=== PATIENT | female | born 1960 | race Caucasian/White ===

== ENCOUNTER 2020-04-27 08:28 | Inpatient (IN) ==
[2020-04-27] MEDS ORDERED: SODIUM CHLORIDE 0.9% 500 ML IV SCH (08:45)
--- NOTE | 2020-04-27 09:00 | XRay Report ---
XR chest 1V portable CLINICAL HISTORY: Shortness of breath. COMPARISON STUDY: No previous studies for comparison. FINDINGS: Lung volumes are mildly diminished. There is no pneumothorax or pleural effusion. Mild righ t lower lung airspace opacity is present. Cardiac size is normal. Mediastinal contours are unremarkab le. S-shaped curvature of the thoracolumbar spine is partially imaged. IMPRESSION: Mild right lower lung opacity. Atelectasis is favored. An infectious process is consider ed less likely. Radiographic follow-up is recommended. ACT 112: Negative or not required by law. Electronically signed by: Tyler Rios M.D. 04/27/2020 8:59 AM
[2020-04-27 09:07] LABS: Basophils # (auto) 0.05 K/uL (0-0.2); Basophils % (auto) 0.7 %; Eosinophils # (auto) 0.16 K/uL (0-0.5); Eosinophils % (auto) 2.1 %; Hematocrit (blood only) 42.9 % (37-47); Hemoglobin 13.5 g/dL (12.0-16.0); Immature Granulocytes # (auto) 0.04 K/uL (0.00-0.02); Immature Granulocytes % (auto) 0.5 %; Lymphocytes # (auto) 1.44 K/uL (1.2-3.4); Lymphocytes % (auto) 18.9 %; Mean Corpuscular Hemoglobin 29.1 pg (25-34); Mean Corpuscular Hgb Conc 31.5 g/dL (32-36); Mean Corpuscular Volume 92.5 fL (80-100); Mean Platelet Volume 11.7 fL (7.4-10.4); Monocytes # (auto) 0.97 K/uL (0.11-0.59); Monocytes % (auto) 12.7 %; Neutrophils # (auto) 4.96 K/uL (1.4-6.5); Neutrophils % (auto) 65.1 %; Platelet Count 246 K/uL (130-400); RDW Coefficient of Variation 14.5 % (11.5-14.5); RDW Standard Deviation 48.7 fL (36.4-46.3); Red Blood Count 4.64 M/uL (4.2-5.4); White Blood Count 7.62 K/uL (4.8-10.8)
[2020-04-27] MEDS ORDERED: ACETAMINOPHEN 1,000 MG/100 ML VIAL IV STA (09:17)
[2020-04-27] MEDS ORDERED: ONDANSETRON INJ 2 MG/ML 2 ML VIAL IV STA (09:17)
[2020-04-27] MEDS ORDERED: HYDROmorphone INJ 0.5 MG/0.5 ML SYR IV PRN (09:17)
[2020-04-27 09:46] LABS: Alanine Aminotransferase 20 U/L (12-78); Albumin Globulin Ratio 0.8 (0.9-2); Albumin Level 3.7 gm/dl (3.4-5.0); Alkaline Phosphatase 140 U/L (45-117); BUN Creatinine Ratio 15.3 (10-20); Bilirubin,Total 0.3 mg/dl (0.2-1); Blood Urea Nitrogen 22 mg/dl (7-18); Carbon Dioxide 24 mmol/L (21-32); Chloride 113 mmol/L (98-107); Creatinine Clr Calc Pharmacy 48.5 ml/min; Est GFR (African American) 45.3; Est GFR (Non-African American) 39.1; Globulin 4.5 gm/dl (2.5-4.0); Glucose 93 mg/dl (70-99); Sodium 143 mmol/L (136-145); Total Protein 8.2 gm/dl (6.4-8.2); Troponin I < 0.015 ng/ml (0-0.045)
[2020-04-27 10:06] LABS: Appearance Urine Clear (Clear); Bilirubin Urine Negative (Negative); Blood Urine Trace (Negative); Color Urine Yellow; Epithelial Cell Urine Auto >30 /lpf (0-5); Glucose Urine UA Negative (Negative); Ketones Urine Negative (Negative); Leukocyte Esterase Urine 1+ (Negative); Nitrite Urine Negative (Negative); Protein Urine 1+ (Negative); RBC Urine Automated 0-4 /hpf (0-4); Specific Gravity Urine 1.026 (1.000-1.030); Urobilinogen Urine Negative (Negative); pH Urine 5.5 (4.5-7.5)
[2020-04-27 10:13] LABS: Potassium 3.8 mmol/L (3.5-5.1)
[2020-04-27 10:19] LABS: Aspartate Aminotransferase 29 U/L (15-37); Creatine Kinase 352 U/L (26-192)
[2020-04-27 10:22] LABS: Bacteria Urine Automated 1+ (Negative)
[2020-04-27] MEDS ORDERED: cefTRIAXone SODIUM 2,000 MG/70 ML BAG IV STA (10:33)
[2020-04-27] MEDS ORDERED: levoFLOXacin/D5W 750 MG/150 ML BAG IV STA (10:34)
[2020-04-27] MEDS ORDERED: PIPERACILL/TAZOBAC CONSULT ACTIVE PRN (10:34)
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
[2020-04-27 11:31] LABS: C Reactive Protein 0.72 mg/dl (0-0.29); Ferritin 34.9 ng/ml (8-388)
[2020-04-27] MEDS: PIPERACILLIN/TAZOBACTAM 4.5 GM/120 ML BAG IV ONE ×2 (11:33→11:39)
[2020-04-27] MEDS ORDERED: ONDANSETRON INJ 2 MG/ML 2 ML VIAL IV PRN (12:56)
[2020-04-27] MEDS: ACETAMINOPHEN 325 MG TAB PO PRN (13:36)
[2020-04-27] MEDS: traMADol HCL 50 MG TABLET PO PRN (14:12)
[2020-04-27] MEDS: ALBUT/IPRATROP 3MG/0.5MG NEB 3 ML VIAL NEB SCH ×2 (15:00→19:50)
[2020-04-27] MEDS: HYDROmorphone INJ 0.5 MG/0.5 ML SYR IV PRN ×3 (15:31→21:38)
[2020-04-27] MEDS: LIDOCAINE 5% 1 PATCH TD SCH (18:39)
[2020-04-27] MEDS: guaiFENesin 600 MG TABCR PO SCH ×2 (20:23→20:25)
[2020-04-27] MEDS: rOPINIRole HCL 1 MG TABLET PO SCH (20:23)
[2020-04-27] MEDS: MAGNESIUM OXIDE 400 MG TAB PO SCH (20:24)
[2020-04-27] MEDS: levETIRAcetam 500 MG TAB PO SCH (20:24)
--- NOTE | 2020-04-27 20:56 | Electrocardiogram Report ---
Test Reason : Blood Pressure : / mmHG Vent. Rate : 076 BPM Atrial Rate : 076 BPM P-R Int : 142 ms QRS Dur : 074 ms QT Int : 428 ms P-R-T Axes : 063 047 047 degrees QTc Int : 481 ms Normal sinus rhythm Nonspecific T wave abnormality Prolonged QT Abnormal ECG No previous ECGs available Confirmed by Maycol Talley ([id number]) on 04/27/2020 8:56:27 PM Referred By: REFERRED SELF Confirmed By:Maycol Talley
[2020-04-27] MEDS ORDERED: LEVETIRACETAM 500 MG PO SCH (21:00)
[2020-04-27] MEDS ORDERED: ALBUT/IPRATROP 3MG/0.5MG NEB 3 ML VIAL NEB PRN (22:26)
[2020-04-28] MEDS: HYDROmorphone INJ 0.5 MG/0.5 ML SYR IV PRN ×8 (01:07→21:13)
[2020-04-28] MEDS: LEVOTHYROXINE SODIUM 25 MCG TABLET PO SCH (05:26)
[2020-04-28] MEDS: CYANOCOBALAMIN 500 MCG TABLET (VITAMIN B-12) PO SCH (07:22)
[2020-04-28] MEDS: ACETAMINOPHEN 325 MG TAB PO PRN (07:23)
[2020-04-28] MEDS: LIDOCAINE 5% 1 PATCH TD SCH (07:24)
[2020-04-28] MEDS: ENOXAPARIN INJ 40 MG/0.4 ML SYR SQ SCH (07:24)
[2020-04-28] MEDS: levETIRAcetam 500 MG TAB PO SCH ×2 (07:24→20:18)
[2020-04-28] MEDS: DULoxetine HCL 60 MG CAP PO SCH (07:24)
[2020-04-28] MEDS: GABAPENTIN 300 MG CAP PO SCH (07:25)
[2020-04-28] MEDS: guaiFENesin 600 MG TABCR PO SCH ×2 (07:25→20:18)
[2020-04-28] MEDS: CHOLECALCIFEROL 1,000 UNITS 25 MCG TAB PO SCH (07:25)
[2020-04-28 07:26] LABS: Hematocrit (blood only) 39.1 % (37-47); Hemoglobin 12.3 g/dL (12.0-16.0); Mean Corpuscular Hemoglobin 29.3 pg (25-34); Mean Corpuscular Hgb Conc 31.5 g/dL (32-36); Mean Corpuscular Volume 93.1 fL (80-100); Mean Platelet Volume 11.3 fL (7.4-10.4); Platelet Count 202 K/uL (130-400); RDW Coefficient of Variation 14.3 % (11.5-14.5); RDW Standard Deviation 48.6 fL (36.4-46.3); White Blood Count 6.68 K/uL (4.8-10.8)
[2020-04-28 07:42] LABS: Albumin Level 3.1 gm/dl (3.4-5.0); BUN Creatinine Ratio 14.3 (10-20); Calcium 8.8 mg/dl (8.5-10.1); Creatinine Clr Calc Pharmacy 50.6 ml/min; Est GFR (African American) 47.7; Est GFR (Non-African American) 41.2; Potassium 3.6 mmol/L (3.5-5.1)
[2020-04-28 07:45] LABS: Albumin Globulin Ratio 0.8 (0.9-2); Bilirubin,Total 0.3 mg/dl (0.2-1); Globulin 3.9 gm/dl (2.5-4.0)
[2020-04-28] MEDS: traMADol HCL 50 MG TABLET PO PRN ×3 (08:20→23:34)
[2020-04-28] MEDS: levoFLOXacin/D5W 500 MG/100 ML BAG IV SCH (10:28)
--- NOTE | 2020-04-28 14:07 | Emergency Department Note ---
History of Present Illness General Chief complaint: Weakness Stated complaint: WEAKNESS Time Seen by Provider: 04/27/20 08:31 Source: patient, EMS, RN notes reviewed and old records reviewed Mode of arrival: EMS Limitations: physical limitation ([place]) History of Present Illness Provider complaint: fall, unable to get up Onset (ago): hour(s) 1 Location: back Severity: moderate Pain Consistency: + intermittent Maximum Pain Intensity: 10 Current Pain Intensity: 10 Quality: + aching Relieved By: + rest and + other (laying down ) Exacerbated By: + other (standing) Associated symptoms: + weakness and + other (urinary symptoms); no confusion, no chest pain, no fever/chills, no loss of appetite, no nausea/vomiting and no shortness of breath Treatments prior to arrival: none This 59-year-old female who was evaluated at [facility] 2 days ago and was diagnosed with a urinary tract infection. The patient reports she did not olive picker her antibiotics due to inability to walk and weakness. The patient reports she cannot ambulate in her own apartment and has been getting around on her hands and knees. She reports this morning that she fell in her bathroom and became wedged and was unable to stand up. EMS was summoned. They brought the patient to the emergency department. Upon arrival to the emergency department the patient is covered in bruises. Home Medications Medication Instructions Recorded Confirmed Type cholecalciferol (vitamin D3) 50 mcg PO QAM 04/27/20 04/27/20 History [Vitamin D3] cyanocobalamin (vitamin B-12) 1,000 mcg SUBLINGUAL QAM 04/27/20 04/27/20 History [Vitamin B-12] duloxetine 60 mg PO QAM 04/27/20 04/27/20 History gabapentin 900 mg PO QAM 04/27/20 04/27/20 History levetiracetam 2,000 mg PO QPM 04/27/20 04/27/20 History levothyroxine 25 mcg PO QAM 04/27/20 04/27/20 History magnesium oxide 800 mg PO HS 04/27/20 04/27/20 History ropinirole 2 mg PO HS 04/27/20 04/27/20 History Allergies Allergy/AdvReac Type Severity Reaction Status Date / Time No Known Allergies Allergy Unverified 04/27/20 10:58 Past Med/Surg History Family History Father Cancer Pancreatic cancer Social History Smoking Status: Never smoker Hx Alcohol Use: No Hx Substance Use: No Preferred Language: Chinese Communication Ability: Effective 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 GENERAL - 59-year-old female appearing stated age who is in moderate distress. Communicates well with provider and answers questions appropriately. SKIN - multiple bruises in various stages of healing on body HEAD - NC/AT. EYES - PERRL with EOMI bilaterally. Sclera anicteric. Palpebral conjunctiva pink and moist with no injection noted. EARS - No deformities of external structures noted on gross examination bilaterally. No pain elicited with palpation of the tragus bilaterally. External auditory canals without discharge or otorrhea. Tympanic membranes pearly yeh without retraction or bulging. No fluid or purulent material visualized behind the TM. Handle of malleus, umbo, cone of light, pars tensa/flaccid all easily visualized. NOSE - Midline and without cyanosis. No epistaxis or purulent drainage noted. Septum midline without deviation or septal hematoma noted. MOUTH/OROPHARYNX - Without perioral cyanosis. Buccal mucosa pink and moist and without leukoplakia. Tongue midline with equal elevation of palate bilaterally. No tonsillar hypertrophy, erythema, or exudates noted. dentition noted. NECK - Neck with FROM. Supple to palpation. lymphadenopathy noted. No nuchal rigidity. LUNGS - Chest wall symmetric without accessory muscle use, intercostals retractions, or central cyanosis. Normal vesicular breath sounds CTA B/L. No wheezes, rales, or rhonchi appreciated. CARDIAC - RRR with S1/S2. No murmur, rubs, or gallops appreciated. ABDOMEN - Abdominal contour without pulsations or visible masses. BS normoactive all four quadrants. No tenderness, palpable masses, hepatosplenomegaly, or ascites noted. EXTREMITIES - No clubbing or peripheral cyanosis. No pretibial edema present. +3/5 radial, posterior tibial, and dorsalis pedis pulses palpated throughout. +5/5 strength noted in UE/LE bilaterally. NEUROLOGIC - Cranial nerves II through XII grossly intact. Sensory intact to light touch throughout. Patellar reflexes +2/4. PSYCH - A&Ox3 and cooperates fully with examiner. Pt is very pleasant and interacts well with examiner. Course Administered Medications Acetaminophen (Acetaminophen 325 Mg Tab) 650 mg PO Q4H PRN PRN Reason: Moderate Pain Stop: 05/27/20 12:55 Last Admin: 04/28/20 07:23 Dose: 650 mg Documented by: [id number] Admin: 04/27/20 13:36 Dose: 650 mg Documented by: [id number] Cyanocobalamin (Cyanocobalamin 500 Mcg Tablet (Vitamin B-12)) [facility] Stop: 05/28/20 08:59 Last Admin: 04/28/20 07:22 Dose: 1,000 mcg Documented by: [id number] Duloxetine HCl (Duloxetine Hcl 60 Mg Cap) 60 mg PO QAM [facility] Stop: 05/28/20 08:59 Last Admin: 04/28/20 07:24 Dose: 60 mg Documented by: [id number] Enoxaparin Sodium (Enoxaparin Inj 40 Mg/0.4 Ml Syr) 40 mg SQ QAM [facility] Stop: 05/28/20 08:59 Last Admin: 04/28/20 07:24 Dose: 40 mg Documented by: [id number] Gabapentin (Gabapentin 300 Mg Cap) 900 mg PO QAM [facility] Stop: 05/28/20 08:59 Last Admin: 04/28/20 07:25 Dose: 900 mg Documented by: [id number] Guaifenesin (Guaifenesin 600 Mg Tabcr) 1,200 mg PO Q12 [facility] Stop: 05/27/20 20:59 Last Admin: 04/28/20 07:25 Dose: 1,200 mg Documented by: [id number] Admin: 04/27/20 20:25 Dose: Not Given Documented by: [id number] Hydromorphone HCl (Hydromorphone Inj 0.5 Mg/0.5 Ml Syr) 0.5 mg IV Q3H PRN PRN Reason: Pain Stop: 05/11/20 13:41 Last Admin: 04/28/20 13:21 Dose: 0.5 mg Documented by: [id number] Admin: 04/28/20 10:28 Dose: 0.5 mg Documented by: [id number] Admin: 04/28/20 07:22 Dose: 0.5 mg Documented by: [id number] Admin: 04/28/20 04:09 Dose: 0.5 mg Documented by: [id number] Admin: 04/28/20 01:07 Dose: 0.5 mg Documented by: [id number] Admin: 04/27/20 21:38 Dose: 0.5 mg Documented by: [id number] Admin: 04/27/20 18:27 Dose: 0.5 mg Documented by: [id number] Admin: 04/27/20 15:31 Dose: 0.5 mg Documented by: [id number] Levofloxacin/Dextrose (Levaquin/D5w) 500 mg in 100 mls @ 100 mls/hr IV Q24H JEREMIAH; Protocol Stop: 05/03/20 10:59 Last Infusion: 04/28/20 11:41 Dose: 0 mls/hr Documented by: [id number] Admin: 04/28/20 10:28 Dose: 100 mls/hr Documented by: [id number] Levetiracetam (Levetiracetam 500 Mg Tab) 1,000 mg PO BID JEREMIAH Stop: 05/27/20 20:59 Last Admin: 04/28/20 07:24 Dose: 1,000 mg Documented by: [id number] Admin: 04/27/20 20:24 Dose: 1,000 mg Documented by: [id number] Levothyroxine Sodium (Levothyroxine Sodium 25 Mcg Tablet) 25 mcg PO DAILYBB JEREMIAH Stop: 05/28/20 06:29 Last Admin: 04/28/20 05:26 Dose: 25 mcg Documented by: [id number] Lidocaine (Lidocaine 5% 1 Patch) 1 patch TD QAM [facility] Stop: 05/27/20 16:29 Last Admin: 04/28/20 07:24 Dose: 1 patch Documented by: [id number] Admin: 04/27/20 18:39 Dose: 1 patch Documented by: [id number] Magnesium Oxide (Magnesium Oxide 400 Mg Tab) 800 mg PO HS [facility] Stop: 05/27/20 20:59 Last Admin: 04/27/20 20:24 Dose: 800 mg Documented by: [id number] Miscellaneous (Remove Lidoderm Patch) 1 ea N/A DAILY@2100 JEREMIAH Stop: 05/27/20 20:59 Last Admin: 04/27/20 20:11 Dose: Not Given Documented by: [id number] Ropinirole HCl (Ropinirole Hcl 1 Mg Tablet) 2 mg PO HS JEREMIAH Stop: 05/27/20 20:59 Last Admin: 04/27/20 20:23 Dose: 2 mg Documented by: [id number] Tramadol HCl (Tramadol Hcl 50 Mg Tablet) 50 mg PO Q4H PRN PRN Reason: Pain Stop: 05/27/20 13:41 Last Admin: 04/28/20 08:20 Dose: 50 mg Documented by: [id number] Admin: 04/27/20 14:12 Dose: 50 mg Documented by: [id number] Vitamin D (Cholecalciferol 1,000 Units 25 Mcg Tab) 2,000 units PO QAM JEREMIAH Stop: 05/28/20 08:59 Last Admin: 04/28/20 07:25 Dose: 2,000 units Documented by: [id number] Discontinued Medications Albuterol (Albut/Ipratrop 3mg/0.5mg Neb 3 Ml Vial) 3 ml NEB Q4R JEREMIAH Stop: 05/27/20 14:59 Last Admin: 04/27/20 19:50 Dose: 3 ml Documented by: [id number] Admin: 04/27/20 15:00 Dose: Not Given Documented by: [id number] Hydromorphone HCl (Hydromorphone Inj 0.5 Mg/0.5 Ml Syr) 0.5 mg IV Q15M PRN PRN Reason: Pain Stop: 05/11/20 09:16 Last Admin: 04/27/20 10:10 Dose: 0.5 mg Documented by: [id number] Sodium Chloride (Nss) 500 mls @ 999 mls/hr IV .Q31M JEREMIAH Stop: 04/27/20 09:15 Last Infusion: 04/27/20 09:20 Dose: 0 mls/hr Documented by: [id number] Admin: 04/27/20 08:49 Dose: 999 mls/hr Documented by: [id number] Acetaminophen (Ofirmev) 1,000 mg in 100 mls @ 400 mls/hr IV NOW STA Stop: 04/27/20 09:31 Last Infusion: 04/27/20 10:10 Dose: 0 mls/hr Documented by: [id number] Admin: 04/27/20 09:30 Dose: 400 mls/hr Documented by: [id number] Ceftriaxone Sodium (Rocephin) 2,000 mg in 70 mls @ 140 mls/hr IV NOW STA Stop: 04/27/20 11:02 Last Admin: 04/27/20 11:40 Dose: Not Given Documented by: [id number] Levofloxacin/Dextrose (Levaquin/D5w) 750 mg in 150 mls @ 100 mls/hr IV NOW STA Stop: 04/27/20 12:03 Last Infusion: 04/27/20 13:16 Dose: 0 mls/hr Documented by: [id number] Admin: 04/27/20 11:38 Dose: 100 mls/hr Documented by: [id number] Piperacillin Sod/Tazobactam Sod (Zosyn) 4.5 gm in 120 mls @ 240 mls/hr IV NOW ONE Stop: 04/27/20 11:03 Last Admin: 04/27/20 11:39 Dose: Not Given Documented by: [id number] Ondansetron HCl (Ondansetron Inj 2 Mg/Ml 2 Ml Vial) 4 mg IV NOW STA Stop: 04/27/20 09:18 Last Admin: 04/27/20 11:40 Dose: Not Given Documented by: [id number] Medical Decision Making Differential Diagnosis Infection, dehydration, metabolic abnormality, hypo/hyperglycemia, electrolyte d isturbance, anemia, hypoxia, cardiac sources, intracerebral event, toxicologic, neurologic, as well as other pathologies. Medical Records Attestation: I reviewed the patient's medical records. Home Medications Current Medication List: was personally reviewed by me Laboratory Data Attestation: I reviewed the patient's lab results. Result diagrams: 04/28/20 07:16 04/28/20 07:16 Lab Results 04/27/20 04/27/20 04/27/20 Range/Units 08:45 08:45 08:45 WBC 7.62 (4.8-10.8) K/uL RBC 4.64 (4.2-5.4) M/uL Hgb 13.5 (12.0-16.0) g/dL Hct 42.9 (37-47) % MCV 92.5 (80-100) fL MCH 29.1 (25-34) pg MCHC 31.5 L (32-36) g/dL RDW Std Deviation 48.7 H (36.4-46.3) fL RDW Coeff of Darin 14.5 (11.5-14.5) % Plt Count 246 (130-400) K/uL MPV 11.7 H (7.4-10.4) fL Immature Gran % (Auto) 0.5 % Neut % (Auto) 65.1 % Lymph % (Auto) 18.9 % Hardin % (Auto) 12.7 % Eos % (Auto) 2.1 % Baso % (Auto) 0.7 % Neut # (Auto) 4.96 (1.4-6.5) K/uL Lymph # (Auto) 1.44 (1.2-3.4) K/uL Hardin # (Auto) 0.97 H (0.11-0.59) K/uL Eos # (Auto) 0.16 (0-0.5) K/uL Baso # (Auto) 0.05 (0-0.2) K/uL Immature Gran # (Auto) 0.04 H (0.00-0.02) K/uL ESR (0-21) mm/hr Sodium 143 (136-145) mmol/L Potassium 3.8 (3.5-5.1) mmol/L Chloride 113 H (98-107) mmol/L Carbon Dioxide 24 (21-32) mmol/L Anion Gap 6.0 (3-11) BUN 22 H (7-18) mg/dl Creatinine 1.44 H (0.6-1.2) mg/dl Est Cr Clr Drug Dosing 48.5 ml/min Est GFR ( Amer) 45.3 Est GFR (Non-Af Amer) 39.1 BUN/Creatinine Ratio 15.3 (10-20) Glucose 93 (70-99) mg/dl Calcium 9.0 (8.5-10.1) mg/dl Ferritin 34.9 (8-388) ng/ml Total Bilirubin 0.3 (0.2-1) mg/dl AST 29 (15-37) U/L ALT 20 (12-78) U/L Alkaline Phosphatase 140 H (45-117) U/L Total Creatine Kinase 352 H (26-192) U/L Troponin I < 0.015 (0-0.045) ng/ml C-Reactive Protein 0.72 H (0-0.29) mg/dl Total Protein 8.2 (6.4-8.2) gm/dl Albumin 3.7 (3.4-5.0) gm/dl Globulin 4.5 H (2.5-4.0) gm/dl Albumin/Globulin Ratio 0.8 L (0.9-2) TSH 2.210 (0.300-4.500) uIu/ml 04/27/20 Range/Units 10:34 WBC (4.8-10.8) K/uL RBC (4.2-5.4) M/uL Hgb (12.0-16.0) g/dL Hct (37-47) % MCV (80-100) fL MCH (25-34) pg MCHC (32-36) g/dL RDW Std Deviation (36.4-46.3) fL RDW Coeff of Darin (11.5-14.5) % Plt Count (130-400) K/uL MPV (7.4-10.4) fL Immature Gran % (Auto) % Neut % (Auto) % Lymph % (Auto) % Hardin % (Auto) % Eos % (Auto) % Baso % (Auto) % Neut # (Auto) (1.4-6.5) K/uL Lymph # (Auto) (1.2-3.4) K/uL Hardin # (Auto) (0.11-0.59) K/uL Eos # (Auto) (0-0.5) K/uL Baso # (Auto) (0-0.2) K/uL Immature Gran # (Auto) (0.00-0.02) K/uL ESR 42 H (0-21) mm/hr Sodium (136-145) mmol/L Potassium (3.5-5.1) mmol/L Chloride (98-107) mmol/L Carbon Dioxide (21-32) mmol/L Anion Gap (3-11) BUN (7-18) mg/dl Creatinine (0.6-1.2) mg/dl Est Cr Clr Drug Dosing ml/min Est GFR ( Amer) Est GFR (Non-Af Amer) BUN/Creatinine Ratio (10-20) Glucose (70-99) mg/dl Calcium (8.5-10.1) mg/dl Ferritin (8-388) ng/ml Total Bilirubin (0.2-1) mg/dl AST (15-37) U/L ALT (12-78) U/L Alkaline Phosphatase (45-117) U/L Total Creatine Kinase (26-192) U/L Troponin I (0-0.045) ng/ml C-Reactive Protein (0-0.29) mg/dl Total Protein (6.4-8.2) gm/dl Albumin (3.4-5.0) gm/dl Globulin (2.5-4.0) gm/dl Albumin/Globulin Ratio (0.9-2) TSH (0.300-4.500) uIu/ml Imaging Data Radiologist's Impression: [facility], [id number] XRay Report Patient: SEPTEMBERKEVENAdmit Date: 04/27/20MR#: [id number]: [address] [place] [address] [address] BAcct ID:[id number]: Date: 1960[facility] Zip: [place], [place] [address]Uae: 59Location: EDSex: FRoom/Bed:Att Phy:Diagnosis: WEAKNESSPri Phy: PCP,NOService Date: 04/27/20Fa Phy:Interpreting Phy: Tyler Rios MDAdmit Phy: Ordering Phy: Stoney Malik MD cc: ~ XR chest 1V portable CLINICAL HISTORY: Shortness of breath. COMPARISON STUDY: No previous studies for comparison. FINDINGS: Lung volumes are mildly diminished. There is no pneumothorax or pleural effusion. Mild right lower lung airspace opacity is present. Cardiac size is normal. Mediastinal contours are unremarkable. S-shaped curvature of the thoracolumbar spine is partially imaged. IMPRESSION: Mild right lower lung opacity. Atelectasis is favored. An infectious process is considered less likely. Radiographic follow-up is recommended. ACT 112: Negative or not required by law. Electronically signed by: Tyler Rios M.D. 04/27/2020 8:59 AM Dictated: 04/27/2057Transcribed: 04/27/20856 ECG Data Attestation: I personally reviewed and interpreted this ECG as follows: Indication: + weakness Rate (beats per minute): 72 Rhythm: + normal sinus ECG Intervals/blocks: + Prolonged QT and + Normal QT-c (481) ECG [place]: + Normal ECG ST segments: no ST depression and no ST elevation Comparison ECG Date: no prior available MDM Narrative Patient was seen and evaluated as above in room C6. Review was performed of nursing notes and vital signs. I did review pertinent previous visits and patient history. After obtaining a thorough history and physical examination the above work up was performed. This 59-year-old female who reports to the emergency department after crawling around on her hands and knees at home. The patient has been unable to ambulate for "quite some time. She was started on antibiotics here in the emergency department for what appears to be pneumonia as well as a urinary tract infection. I did discuss the case with the hospitalist service who did agree to admit the patient. Patient is in agreement the treatment plan An order was placed for continuous cardiac monitoring. The monitor shows a rate of 72 with Normal Sinus rhythm. The patient was evaluated during the global COVID-19 pandemic, and that diagnosis was suspected/considered upon their initial presentation. Their evaluation, treatment and testing was consistent with current guidelines for patients who present with complaints or symptoms that may be related to COVID- 19. Impression & Plan Weakness, HTN (hypertension), UTI (urinary tract infection), Pneumonia Discharge Plan Visit Data Chief Complaint: Weakness Stated Complaint: WEAKNESS ED Provider: Stoney Malik Discharge Problem: Weakness, HTN (hypertension), UTI (urinary tract infection), Pneumonia Patient Disposition: Admitted As Inpatient Discharge Instructions Interventions: ED Discharge Assessment Last Done: 04/27/20 12:14 Discharge Problem: HTN (hypertension) Qualifiers: Hypertension type: unspecified Qualified Code(s): I10 - Essential (primary) hypertension UTI (urinary tract infection) Qualifiers: Urinary tract infection type: site unspecified Hematuria presence: without hematuria Qualified Code(s): N39.0 - Urinary tract infection, site not specified Pneumonia Qualifiers: Pneumonia type: due to unspecified organism Laterality: unspecified laterality Lung location: unspecified part of lung Qualified Code(s): J18.9 - Pneumonia, unspecified organism
--- NOTE | 2020-04-28 19:37 | Hospitalist Progress Note ---
Date of Service April 28, 2020 Assessment & Plan (1) Weakness: - PT/OT consults for profound progressive weakness over the past 2 days, s/p fall/slip from off the toilet. -Procal wnl, ferritin wnl, LDH wnl - UA appears infected, UTI per records from [place] with kleb pneumonia although not having particular symptoms - CXR reviewed showing atelectasis vs possible pneumonia and again, not having particular symptoms of pna (2) UTI (urinary tract infection): ->100,000 Klebsiella pneumonia 8 colonies growing, resistant to ampicillin, nitrofurantoin, tetracycline - fax being sent from [facility] for chart, confirmed over the phone. - will continue IV Levaquin x 3 days - UC no growth, bc ngtd -Patient denies hematuria, dysuria, increase in frequency, no cva tenderness on exam so unlikely to be pyelonephritis -Follow cmp to monitor cr/bun (3) Pneumonia: -Possible as per CXR -Afebrile, no WBC, checking a procal, unlikely, but will continue Levaquin as above to cover UTI and possible pulmonary source -Encourage incentive spirometry, flutter, duo nebs as needed -Tylenol prn - pain in R shoulder blade improved with dilaudid 0.5 mg x 1 in the ER, hold on further narcotics for now. (4) HTN (hypertension): - No hx of such, BP significantly elevated here but without sypmptoms. Pt reports pain in back as primary issues as well as the R shoulder blade region - this may be related to possible pneumonia. Will give a dose of amlodipine for this evening and see how she tolerates. Will hold off on hctz or lisinopril for mildly decreased kidney function (5) Hypothyroidism: -Continue levothyroxine 25 mcg daily (6) Seizure disorder: -Last seizure like activity was approximately 3 years ago per patient, spent 1 week in continuous EEG unit at that time without findings other than one abnormal EEG. Follows with Dr. Borja in neurology as outpatient routinely -Continue Keppra 2000 mg qpm - check level for toxicity (7) Obesity (BMI 30-39.9): - BMI of 39.7, diet encouraged with poor ability to exercise - Consider nutrition consult (8) Restless leg: - May continue requip 2 mg po HS (9) Peripheral neuropathy: - Cont gabapentin mg qam, cymbalta 60 mg qam - bilateral up to level of mid-crystal on exam (10) Vitamin D deficiency: - Cont supplementation DVT ppx: - zarina gutierrezx subq CODE: Full code- discussed with pt at bedside Dispo: Admit for Observation, from home, likely to remain in the hospital x 1-2 days, CM to assist with rehab planning Admission and Anticipated Discharge Date Admission Date: April 27, 2020 Subjective Ms. Sanches reports pain under her left shoulder blade and generalized weakness. Review of Systems Constitutional: no fever, no chills and no body aches Respiratory: no cough and no dyspnea Cardiovascular: no chest pain, no dyspnea on exertion and no palpitations Gastrointestinal: no abdominal pain, no nausea, no vomiting and no diarrhea/loose stools Genitourinary: no dysuria and no urinary hesitancy Musculoskeletal: as per Subjective / HPI Integumentary: ecchymosis legs Neurologic: no numbness and no radiating pain Physical Exam Physical Exam: General: no distress Eyes: normal inspection, PERLL Respiratory: chest non tender, clear to auscultation, normal breath sounds, no respiratory distress, no accessory muscle use Cardiac: regular rate and rhythm, no rub or gallop, no murmur, no edema, no jvd GI/: active bowel sounds, no abd pain or tenderness, soft, non distended Extremities: normal range of motion, normal strength, non tender Neuro/Psych: alert and oriented x 3, normal mood and affect Skin: normal color, dry, multiple areas of ecchymosis lower extremities Results & Data Results & Data ([facility]) Vital Signs (Past 12 Hours) Vital Signs Temp Pulse Resp BP BP Pulse Ox 04/28/20 15:21 36.7 C 82 17 198/96 H 98 04/28/20 07:40 36.6 C 72 18 165/90 H 98 PG Care Time/CCT Total # of Minutes Spent Total Time Spent with Patient: Total time spent is greater than 50% in coordination of care (as documented) at patient's floor/unit and/or counseling patient: Coding Level of Care Code 54607 Subseq Hosp Care Lvl 2 Diagnoses Weakness R53.1 UTI (urinary tract infection) N39.0 Hematuria presence: without hematuria Urinary tract infection type: site unspecified Pneumonia J18.9 Laterality: unspecified laterality Lung location: unspecified part of lung Pneumonia type: due to unspecified organism HTN (hypertension) I10 Hypertension type: unspecified Hypothyroidism E03.9 Seizure disorder G40.909 Obesity (BMI 30-39.9) E66.9 Restless leg G25.81 Peripheral neuropathy G62.9 Vitamin D deficiency E55.9 (1) UTI (urinary tract infection) Hematuria presence: without hematuria Urinary tract infection type: site unspecified Qualified Code(s): N39.0 - Urinary tract infection, site not specified (2) Pneumonia Laterality: unspecified laterality Lung location: unspecified part of lung Pneumonia type: due to unspecified organism Qualified Code(s): J18.9 - Pneumonia, unspecified organism (3) HTN (hypertension) Hypertension type: unspecified Qualified Code(s): I10 - Essential (primary) hypertension
[2020-04-28] MEDS ORDERED: amLODIPine BESYLATE 5 MG TAB PO ONE (19:45)
[2020-04-28] MEDS: rOPINIRole HCL 1 MG TABLET PO SCH (20:17)
[2020-04-28] MEDS: MAGNESIUM OXIDE 400 MG TAB PO SCH (20:18)
[2020-04-29] MEDS: HYDROmorphone INJ 0.5 MG/0.5 ML SYR IV PRN ×6 (00:32→21:32)
[2020-04-29] MEDS: ACETAMINOPHEN 325 MG TAB PO PRN (02:11)
[2020-04-29] MEDS: traMADol HCL 50 MG TABLET PO PRN ×4 (03:08→23:24)
[2020-04-29] MEDS: LEVOTHYROXINE SODIUM 25 MCG TABLET PO SCH (05:50)
[2020-04-29 06:21] LABS: Hematocrit (blood only) 42.4 % (37-47); Hemoglobin 13.4 g/dL (12.0-16.0); Mean Corpuscular Hemoglobin 29.1 pg (25-34); Mean Corpuscular Hgb Conc 31.6 g/dL (32-36); Mean Corpuscular Volume 92.2 fL (80-100); Mean Platelet Volume 11.3 fL (7.4-10.4); Platelet Count 233 K/uL (130-400); RDW Coefficient of Variation 14.1 % (11.5-14.5); RDW Standard Deviation 47.2 fL (36.4-46.3); White Blood Count 6.67 K/uL (4.8-10.8)
[2020-04-29 06:55] LABS: Albumin Globulin Ratio 0.8 (0.9-2); Albumin Level 3.1 gm/dl (3.4-5.0); BUN Creatinine Ratio 19.4 (10-20); Bilirubin,Total 0.3 mg/dl (0.2-1); Calcium 8.8 mg/dl (8.5-10.1); Creatinine Clr Calc Pharmacy 71.2 ml/min; Est GFR (African American) 72.2; Est GFR (Non-African American) 62.3; Potassium 3.6 mmol/L (3.5-5.1); Total Protein 7.1 gm/dl (6.4-8.2)
[2020-04-29] MEDS: LIDOCAINE 5% 1 PATCH TD SCH (07:31)
[2020-04-29] MEDS: guaiFENesin 600 MG TABCR PO SCH ×2 (07:36→20:29)
[2020-04-29] MEDS: CYANOCOBALAMIN 500 MCG TABLET (VITAMIN B-12) PO SCH (07:36)
[2020-04-29] MEDS: DULoxetine HCL 60 MG CAP PO SCH (07:37)
[2020-04-29] MEDS: GABAPENTIN 300 MG CAP PO SCH (07:37)
[2020-04-29] MEDS: levETIRAcetam 500 MG TAB PO SCH ×2 (07:37→20:26)
[2020-04-29] MEDS: CHOLECALCIFEROL 1,000 UNITS 25 MCG TAB PO SCH (07:37)
[2020-04-29] MEDS: ENOXAPARIN INJ 40 MG/0.4 ML SYR SQ SCH (07:38)
[2020-04-29] MEDS: levoFLOXacin/D5W 500 MG/100 ML BAG IV SCH (11:04)
--- NOTE | 2020-04-29 14:41 | XRay Report ---
RIGHT-SIDED RIB SERIES CLINICAL HISTORY: Right-sided back and chest wall pain. FINDINGS: 4 radiographs from a right-sided rib series are correlated with chest x-ray dated 0. The skeletal structures are osteopenic. There is no radiographic evidence of acute/displaced right -sided rib fracture on the rib series. The right lung parenchyma is clear as imaged noting right basi lar atelectasis. Cholecystectomy clips are seen in the right upper quadrant. IMPRESSION: There is no radiographic evidence of acute/displaced right-sided rib fracture. Electronically signed by: Juan Blue M.D. 04/29/2020 2:40 PM
--- NOTE | 2020-04-29 14:59 | XRay Report ---
LUMBAR SPINE 3 VIEWS CLINICAL HISTORY: Low back pain. FINDINGS: 3 views of the lumbar spine are obtained. No prior studies are unable for comparison at the time of dictation. The skeletal structures are osteopenic. There is no radiographic evidence of frac ture or malalignment. Vertebral body height and alignment are maintained throughout the lumbar spine. There is straightening of the lumbar lordosis. Anterior and lateral marginal osteophytes are seen th roughout. The transverse and spinous processes appear intact. Mild disc space narrowing is seen at L4 -L5 and L5-S1. There is mild facet arthropathy in the lower lumbar region. The visualized bony pelvis appears intact. Cholecystectomy clips are noted in the right upper quadrant. A surgical clip is also seen in the right pelvis. There is no bowel obstruction. Moderate constipation is observed. An indet erminate linear focus of gas is seen in the upper abdomen and may be external to the patient. IMPRESSION: 1. No acute bony abnormality is seen involving the lumbar spine. 2. Osteopenia and mild spondylotic change as above. 3. Moderate constipation. 4. An indeterminate linear focus of gas projects over the upper abdomen. This may be external to the patient and clinical correlation will be required. Dictated: 04/29/2020 2:48 PM Transcribed: 04/29/2020 2:57 PM Nneka [id number] [email or web address] Electronically signed by: Juan Blue M.D. 04/29/2020 2:58 PM
--- NOTE | 2020-04-29 17:18 | Hospitalist Progress Note ---
Date of Service April 29, 2020 Assessment & Plan (1) Weakness: - PT/OT consults for profound progressive weakness over the past 2 days, s/p fall/slip from off the toilet. -Procal wnl, ferritin wnl, LDH wnl - UA appears infected, UTI per records from [place] with kleb pneumonia although not having particular symptoms - CXR reviewed showing atelectasis vs possible pneumonia and again, not having particular symptoms of pna (2) UTI (urinary tract infection): ->100,000 Klebsiella pneumonia 8 colonies growing, resistant to ampicillin, nitrofurantoin, tetracycline - fax being sent from [facility] for chart, confirmed over the phone. - will continue IV Levaquin x 3 days - UC no growth, bc ngtd -Patient denies hematuria, dysuria, increase in frequency, no cva tenderness on exam so unlikely to be pyelonephritis -Follow cmp to monitor cr/bun (3) Back pain: Somewhat chronic in nature but worsening today XRay lumbar spine and left ribs - no rib fracture or acute bony abnormality, osteopenia, linear focus of gas which may be external to the patient. Focus of gas likely secondary to enoxaparin injection (4) Pneumonia: -Possible as per CXR -Afebrile, no WBC, procal wnl but will continue Levaquin as above to cover UTI and possible pulmonary source -Encourage incentive spirometry, flutter, duo nebs as needed -Tylenol prn - pain in R shoulder blade persistent (5) HTN (hypertension): - No hx of such, BP significantly elevated here but without sypmptoms. Pt reports pain in back as primary issues as well as the R shoulder blade region - this may be related to possible pneumonia. Given amlodipine yesterday as kidney function was mildly decreased. Will start patient on lisinopril for tomorrow 10 mg and she can titrate up as needed. (6) Hypothyroidism: -Continue levothyroxine 25 mcg daily (7) Seizure disorder: -Last seizure like activity was approximately 3 years ago per patient, spent 1 week in continuous EEG unit at that time without findings other than one abnormal EEG. Follows with Dr. Borja in neurology as outpatient routinely -Continue Keppra 2000 mg qpm - check level for toxicity (8) Obesity (BMI 30-39.9): - BMI of 39.7, diet encouraged with poor ability to exercise - Consider nutrition consult (9) Restless leg: - May continue requip 2 mg po HS (10) Peripheral neuropathy: - Cont gabapentin mg qam, cymbalta 60 mg qam - bilateral up to level of mid-crystal on exam (11) Vitamin D deficiency: - Cont supplementation DVT ppx: - joceline gutierrez subq Admission and Anticipated Discharge Date Admission Date: April 27, 2020 Subjective Ms. Sanches continues to complain of weakness in her arms and legs. She moves all of her extremities in bed and though she reports being unable to lift her arms she does so as we talk and nursing has also reported she is reaching above her head to pull herself up in bed. Seh is very uncomfortable with lower back pain which is chronic but today worse than usual. Review of Systems Review of Systems: Constitutional: No fever, sweats or chills, + worsening generalized weakness Respiratory: no cough or dyspnea Cardiovascular: No chest pain, dizziness or palpitations Abdomen: No pain, nausea, vomiting, diarrhea or constipation : No dysuria, increase in frequency Musculoskeletal: + weakness, No joint pain, + back pain Neurologic: + weakness, +numbness/tingling left lower extremity below the knee Skin: No rash or itch, + multiple areas of bruising over legs and knees Physical Exam Physical Exam: General: no distress Eyes: normal inspection, PERLL Respiratory: chest non tender, clear to auscultation, normal breath sounds, no respiratory distress, no accessory muscle use Cardiac: regular rate and rhythm, no rub or gallop, no murmur, no edema, no jvd GI/: active bowel sounds, no abd pain or tenderness, soft, non distended Extremities: normal range of motion, normal strength, non tender Neuro/Psych: alert and oriented x 3, normal mood and affect Skin: normal color, dry, multiple areas of ecchymosis lower extremities Results & Data Results & Data ([facility]) Vital Signs (Past 12 Hours) Vital Signs Temp Pulse Resp BP Pulse Ox 04/29/20 16:07 36.8 C 88 17 169/94 H 92 04/29/20 07:24 36.9 C 70 18 145/83 H 90 PG Care Time/CCT Total # of Minutes Spent Total Time Spent with Patient: Total time spent is greater than 50% in coor dination of care (as documented) at patient's floor/unit and/or counseling patient: Coding Level of Care Code 70444 Subseq Hosp Care Lvl 2 Diagnoses Weakness R53.1 UTI (urinary tract infection) N39.0 Hematuria presence: without hematuria Urinary tract infection type: site unspecified Back pain M54.9 Pneumonia J18.9 Laterality: unspecified laterality Lung location: unspecified part of lung Pneumonia type: due to unspecified organism HTN (hypertension) I10 Hypertension type: unspecified Hypothyroidism E03.9 Seizure disorder G40.909 Obesity (BMI 30-39.9) E66.9 Restless leg G25.81 Peripheral neuropathy G62.9 Vitamin D deficiency E55.9 (1) UTI (urinary tract infection) Hematuria presence: without hematuria Urinary tract infection type: site unspecified Qualified Code(s): N39.0 - Urinary tract infection, site not specified (2) HTN (hypertension) Hypertension type: unspecified Qualified Code(s): I10 - Essential (primary) hypertension (3) Pneumonia Laterality: unspecified laterality Lung location: unspecified part of lung Pneumonia type: due to unspecified organism Qualified Code(s): J18.9 - Pneumonia, unspecified organism
[2020-04-29] MEDS: MAGNESIUM OXIDE 400 MG TAB PO SCH (20:27)
[2020-04-29] MEDS: rOPINIRole HCL 1 MG TABLET PO SCH (20:27)
[2020-04-30] MEDS: HYDROmorphone INJ 0.5 MG/0.5 ML SYR IV PRN ×6 (00:41→18:49)
[2020-04-30] MEDS: traMADol HCL 50 MG TABLET PO PRN ×3 (03:33→17:39)
[2020-04-30] MEDS: LEVOTHYROXINE SODIUM 25 MCG TABLET PO SCH (05:34)
[2020-04-30] MEDS: CYANOCOBALAMIN 500 MCG TABLET (VITAMIN B-12) PO SCH (08:36)
[2020-04-30] MEDS: levETIRAcetam 500 MG TAB PO SCH (08:36)
[2020-04-30] MEDS: CHOLECALCIFEROL 1,000 UNITS 25 MCG TAB PO SCH (08:37)
[2020-04-30] MEDS: guaiFENesin 600 MG TABCR PO SCH ×2 (08:37→20:32)
[2020-04-30] MEDS: DULoxetine HCL 60 MG CAP PO SCH (08:37)
[2020-04-30] MEDS: ENOXAPARIN INJ 40 MG/0.4 ML SYR SQ SCH (08:38)
[2020-04-30] MEDS: GABAPENTIN 300 MG CAP PO SCH (08:38)
[2020-04-30] MEDS: LIDOCAINE 5% 1 PATCH TD SCH (08:39)
[2020-04-30] MEDS ORDERED: amLODIPine BESYLATE 5 MG TAB PO SCH (09:00)
[2020-04-30] MEDS ORDERED: lisinopril 10 MG TAB PO SCH (09:00)
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
[2020-04-30 10:17] LABS: Hematocrit (blood only) 41.4 % (37-47); Hemoglobin 13.4 g/dL (12.0-16.0); Mean Corpuscular Hemoglobin 29.1 pg (25-34); Mean Corpuscular Hgb Conc 32.4 g/dL (32-36); Mean Platelet Volume 11.3 fL (7.4-10.4); Platelet Count 239 K/uL (130-400); White Blood Count 7.63 K/uL (4.8-10.8)
[2020-04-30] MEDS: levoFLOXacin/D5W 500 MG/100 ML BAG IV SCH (10:47)
[2020-04-30 10:51] LABS: C Reactive Protein 4.21 mg/dl (0-0.29)
[2020-04-30 11:06] LABS: Lyme Ab IgG w/WB Rflx Negative (Negative); Lyme Ab IgM w/WB Rflx Negative (Negative)
[2020-04-30 11:21] LABS: Albumin Globulin Ratio 0.7 (0.9-2); Albumin Level 3.3 gm/dl (3.4-5.0); BUN Creatinine Ratio 19.2 (10-20); Bilirubin,Total 0.6 mg/dl (0.2-1); Calcium 9.3 mg/dl (8.5-10.1); Creatinine Clr Calc Pharmacy 81.1 ml/min; Est GFR (African American) 84.5; Est GFR (Non-African American) 72.9; Globulin 4.4 gm/dl (2.5-4.0); Potassium 4.1 mmol/L (3.5-5.1); Total Protein 7.7 gm/dl (6.4-8.2)
--- NOTE | 2020-04-30 16:01 | XRay Report ---
XR chest 1V portable CLINICAL HISTORY: Shortness of breath COMPARISON STUDY: 04/29/2020 FINDINGS: The study is rotated. There is elevation the right hemidiaphragm. There are linear opacitie s the right lung base, likely atelectatic.[There is no failure. IMPRESSION: 1. Mild elevation of the right hemidiaphragm 2. Right basilar parenchymal opacities, statistically atelectatic, although an infectious/inflammator y processes could appear similar ACT 112: Negative or not required by law. Electronically signed by: Luther Alvarez M.D. 04/30/2020 4:00 PM
--- NOTE | 2020-04-30 16:03 | XRay Report ---
XR shoulder RT min 2V routine HISTORY: 59 years-old Female weakness acute weakness COMPARISON: Chest radiograph of same day and also 04/27/2020 TECHNIQUE: 3 views of the right shoulder FINDINGS: Mild glenohumeral and AC joint osteoarthritis. No acute fracture, dislocation or opaque foreign body. Right lung base opacities with blunting of the costophrenic angle. No opaque foreign body. IMPRESSION: No acute fracture or dislocation. ACT 112: Negative or not required by law. The above report was generated using voice recognition software. It may contain grammatical, syntax o r spelling errors. Electronically signed by: Nilesh Marquez M.D. 04/30/2020 4:02 PM
[2020-04-30] MEDS ORDERED: IOVERSOL 100ml IV ONE (18:18)
--- NOTE | 2020-04-30 18:26 | CT Scan Report ---
CT head/brain wo/w con HISTORY: weakness, generalized TECHNIQUE: Multiaxial CT images of the head were performed both before and after the intravenous demo nstration of contrast. COMPARISON STUDY: None. FINDINGS: The paranasal sinuses and mastoid air cells are clear. The calvarium and skull base are int act. Mild motion artifact. The ventricles and sulci are within normal limits. There is no mass, hemat darlene, midline shift, acute infarct. Postcontrast sequences show no areas of abnormal enhancement. IMPRESSION: No acute intracranial abnormality. ACT 112: Negative or not required by law. Electronically signed by: Tam Skaggs M.D. 04/30/2020 6:24 PM
[2020-04-30] MEDS: MAGNESIUM OXIDE 400 MG TAB PO SCH (20:32)
[2020-04-30] MEDS: rOPINIRole HCL 1 MG TABLET PO SCH (20:33)
[2020-04-30] MEDS: ACETAMINOPHEN 325 MG TAB PO PRN (20:43)
[2020-05-01] MEDS: traMADol HCL 50 MG TABLET PO PRN ×3 (01:16→21:31)
[2020-05-01] MEDS: HYDROmorphone INJ 0.5 MG/0.5 ML SYR IV PRN (02:35)
[2020-05-01] MEDS: ACETAMINOPHEN 325 MG TAB PO PRN ×2 (05:24→23:36)
[2020-05-01] MEDS: LEVOTHYROXINE SODIUM 25 MCG TABLET PO SCH (06:08)
[2020-05-01 06:15] LABS: Basophils # (auto) 0.02 K/uL (0-0.2); Basophils % (auto) 0.2 %; Eosinophils # (auto) 0.09 K/uL (0-0.5); Hematocrit (blood only) 42.9 % (37-47); Hemoglobin 13.9 g/dL (12.0-16.0); Immature Granulocytes # (auto) 0.03 K/uL (0.00-0.02); Immature Granulocytes % (auto) 0.3 %; Lymphocytes # (auto) 1.17 K/uL (1.2-3.4); Lymphocytes % (auto) 12.8 %; Mean Corpuscular Hemoglobin 29.1 pg (25-34); Mean Corpuscular Hgb Conc 32.4 g/dL (32-36); Mean Corpuscular Volume 89.7 fL (80-100); Mean Platelet Volume 10.9 fL (7.4-10.4); Monocytes # (auto) 0.84 K/uL (0.11-0.59); Monocytes % (auto) 9.2 %; Neutrophils # (auto) 6.98 K/uL (1.4-6.5); Neutrophils % (auto) 76.5 %; Platelet Count 273 K/uL (130-400); RDW Coefficient of Variation 14.1 % (11.5-14.5); RDW Standard Deviation 45.9 fL (36.4-46.3); Red Blood Count 4.78 M/uL (4.2-5.4); White Blood Count 9.13 K/uL (4.8-10.8)
[2020-05-01 06:42] LABS: Albumin Level 3.3 gm/dl (3.4-5.0); BUN Creatinine Ratio 21.3 (10-20); Calcium 9.4 mg/dl (8.5-10.1); Est GFR (African American) 76.9; Est GFR (Non-African American) 66.3; Potassium 3.9 mmol/L (3.5-5.1)
[2020-05-01 06:44] LABS: Albumin Globulin Ratio 0.7 (0.9-2); Bilirubin,Total 0.5 mg/dl (0.2-1); Globulin 4.5 gm/dl (2.5-4.0); Total Protein 7.8 gm/dl (6.4-8.2)
[2020-05-01] MEDS: levETIRAcetam 500 MG TAB PO SCH ×2 (09:12→20:46)
[2020-05-01] MEDS: CHOLECALCIFEROL 1,000 UNITS 25 MCG TAB PO SCH (09:12)
[2020-05-01] MEDS: CYANOCOBALAMIN 500 MCG TABLET (VITAMIN B-12) PO SCH (09:12)
[2020-05-01] MEDS: GABAPENTIN 300 MG CAP PO SCH (09:13)
[2020-05-01] MEDS: DULoxetine HCL 60 MG CAP PO SCH (09:13)
[2020-05-01] MEDS: ENOXAPARIN INJ 40 MG/0.4 ML SYR SQ SCH (09:13)
[2020-05-01] MEDS: guaiFENesin 600 MG TABCR PO SCH ×2 (09:13→20:47)
[2020-05-01] MEDS: LIDOCAINE 5% 1 PATCH TD SCH (09:13)
[2020-05-01] MEDS: lisinopril 20 MG TAB PO SCH (09:46)
--- NOTE | 2020-05-01 09:50 | Hospitalist Progress Note ---
Date of Service May 01, 2020 Assessment & Plan (1) Weakness: * PT/OT consults for profound progressive weakness over the past 2 days, s/p fall/slip from off the toilet --> rec rehab. Ref sent for oKko Garcia * Procal, ferritin, LDH wnl * CK was 352 on admission and given IVF with repeat wnl UTI * Patient recent diagnosis [place] with Klebsiella pneumonia UTI but patient never started abx --> sensitivities revealed sensitive to Levaquin and will cover for pneumonia as well Pneumonia -- suspected * COVID negative -- ?repeat although patient has been afebrile * Will order Biofire for other possible viral causes * CXR 04/30 for shortness of breath --R basilar parenchymal opacities, statis tically atelectatic although infectious/inflammatory could appear similar * 92% on RA -- supplemental O2 to maintain such. Nebs ordered prn. * --> Will repeat procalcitonin, lactic * CT Head without acute abn * Shoulder (right) 2 view without acute fracture/dislocation * ECHO without vegetation * ESR 27 from 42, CRP 4.21 from 0.72 * BCx NGTD after 48 hours. Continues to be afebrile * Lyme negative * *Keppra level ELEVATED at 51.8 -- decreased keppra to 500mg BID * Will ask Neurology for formal consultation in AM Consider switching abx to Zosyn/Vanco tomorrow if continues for pneumonia (levaquin to be completed for UTI tomorrow). Elevated neutrophils 6.98 (normal on admission) ?If possibly some PMR given she was to start steroids by rheumatology following bone density scans -- requested records and HIM working on getting most recent office visit notes/labs (2) UTI (urinary tract infection): * ->100,000 Klebsiella pneumonia 8 colonies growing, resistant to ampicillin, nitrofurantoin, tetracycline - fax being sent from [facility] for chart, confirmed over the phone. * Cr elevated with KAYLIE on admission, Cr 1.38. Resolved with IVF to 0.93 * Continue IV Levaquin -- to be completed today but will continue for coverage of pneumonia * UC no growth, bc ngtd * Patient denies hematuria, dysuria, increase in frequency, no cva tenderness on exam so unlikely to be pyelonephritis (3) Pneumonia: * Possible as per CXR * Afebrile, no WBC, procal wnl but will continue Levaquin as above to cover UTI and possible pulmonary source * Encourage incentive spirometry, flutter, duo nebs as needed * Tylenol prn - pain in R shoulder blade persistent * See above (4) HTN (hypertension): * No hx of such, BP significantly elevated here * Pt reports pain in back as primary issues as well as the R shoulder blade region - this may be related to possible pneumonia. * Increased lisinopril to 20mg today -- BP 142/87. Titrate as needed. Consider addition of BB * Hydralazine prn (5) Hypothyroidism: * TSH 2.210 * Continue levothyroxine 25 mcg daily (6) Seizure disorder: * Last seizure like activity was approximately 3 years ago per patient, spent 1 week in continuous EEG unit at that time without findings other than one abnormal EEG. Follows with Dr. 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 mg * Keppra level elevated as above -- continuing with 500mg BID after discussion w tom Andres * Neuro consult as above for tomorrow morning (7) Obesity (BMI 30-39.9): * BMI of 39.7, diet encouraged with poor ability to exercise (8) Restless leg: * May continue requip 2 mg po HS (9) Peripheral neuropathy: * Cont gabapentin mg qam, cymbalta 60 mg qam * Bilateral up to level of mid-crystal on exam * B12 elevated, folate wnl * If continued pain persists, consider consulting pain management as recent switch from IV Dilaudid to PO agents given weakness/lethargy (10) Vitamin D deficiency: * Cont supplementation Elevated Alk Phos * Alk phos elevated, also elevated on admission. Tbili wnl. No abd pain on examination. * Patient likely to have hx fatty liver but will obtain RUQ US to check DVT proph: * joceline gutierrez subq Admission and Anticipated Discharge Date Admission Date: April 30, 2020 Subjective Patient seen this morning. Worsening weakness and pain. Did switch her over to oral pain medication to see if any improvement in lasting relief. Had been utilizing around the clock She states she needs to move her bowels and requesting to be placed on the bed brock. Discussed negative CT Head but will ask Neurology to see patient in AM for progressive weakness. Still awaiting outside records from Rheumatology to see if they were attempting to treat a PMR with steroids. Per discussion with nursing, patient with significant decline in strength and now requiring assistance with eating, where she had been able to assist with getting off ER stretcher to the bed on admission. Does have some neck pain, worse with leaning forward. No headache or visual changes noted. Plans for rehab at discharge once medically stable. Review of Systems Review of Systems: All systems reviewed & are unremarkable except as noted in HPI & below Physical Exam Constitutional: well developed, well nourished and + obese; + uncomfortable Eyes: + anicteric sclerae and PERRL ENMT: Ears: no hearing impairment Neck: normal visual inspection Respiratory: normal respiratory effort; no respiratory distress and no labored breathing Auscultation: + diminished lung sounds (throughout) and + crackles (R base); no wheezes Cardiovascular: Rate/Rhythm: regular rate and regular rhythm Heart Sounds: no murmur Vessels: no JVD (unable to assess due to body habitus) Extremities: + edema (1+ b/l LE) Gastrointestinal (Abdomen): normal bowel sounds, soft, nontender, no hep atosplenomegaly Musculoskeletal: Head/Neck/Chest: normocephalic and head atraumatic able to do passive ROM without issue active ROM limited per patient's willingness to participate equal UE muscle tone, but decreased strength 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 equal NVI with exception of mid-crystal neuropathy/decreased sensation b/l LE pulses palpable Teds present non-pitting edema 1+ patellar/Achilles DTR cervical spine tender to palpation increased pain reported with flexion of the neck Neurologic: PERRL, EOMI, accommodation nl, no face palsy, no dysarthria Psychiatric: Orientation: alert and oriented x 3 Results & Data Results & Data ([facility]) Vital Signs (Past 12 Hours) Vital Signs Temp Pulse Resp BP Pulse Ox 05/01/20 07:41 36.5 C 94 H 18 179/96 H 92 04/30/20 23:15 36.5 C 97 H 20 163/85 H 94 Laboratory Results 05/01/20 05/01/20 05/01/20 Range/Units 05:50 05:50 05:50 WBC 9.13 (4.8-10.8) K/uL RBC 4.78 (4.2-5.4) M/uL Hgb 13.9 (12.0-16.0) g/dL Hct 42.9 (37-47) % MCV 89.7 (80-100) fL MCH 29.1 (25-34) pg MCHC 32.4 (32-36) g/dL RDW Std Deviation 45.9 (36.4-46.3) fL RDW Coeff of Darin 14.1 (11.5-14.5) % Plt Count 273 (130-400) K/uL MPV 10.9 H (7.4-10.4) fL Immature Gran % (Auto) 0.3 % Neut % (Auto) 76.5 % Lymph % (Auto) 12.8 % [place] % (Auto) 9.2 % Eos % (Auto) 1.0 % Baso % (Auto) 0.2 % Neut # (Auto) 6.98 H (1.4-6.5) K/uL Lymph # (Auto) 1.17 L (1.2-3.4) K/uL [place] # (Auto) 0.84 H (0.11-0.59) K/uL Eos # (Auto) 0.09 (0-0.5) K/uL Baso # (Auto) 0.02 (0-0.2) K/uL Immature Gran # (Auto) 0.03 H (0.00-0.02) K/uL ESR (0-21) mm/hr Sodium 134 L (136-145) mmol/L Potassium 3.9 (3.5-5.1) mmol/L Chloride 101 (98-107) mmol/L Carbon Dioxide 29 (21-32) mmol/L Anion Gap 4.0 (3-11) BUN 20 H (7-18) mg/dl Creatinine 0.93 (0.6-1.2) mg/dl Est Cr Clr Drug Dosing 75.0 ml/min Est GFR ( Amer) 76.9 Est GFR (Non-Af Amer) 66.3 BUN/Creatinine Ratio 21.3 H (10-20) Glucose 107 H (70-99) mg/dl Calcium 9.4 (8.5-10.1) mg/dl Total Bilirubin 0.5 (0.2-1) mg/dl AST 24 (15-37) U/L ALT 25 (12-78) U/L Alkaline Phosphatase 121 H (45-117) U/L Total Creatine Kinase (26-192) U/L C-Reactive Protein (0-0.29) mg/dl Total Protein 7.8 (6.4-8.2) gm/dl Albumin 3.3 L (3.4-5.0) gm/dl Globulin 4.5 H (2.5-4.0) gm/dl Albumin/Globulin Ratio 0.7 L (0.9-2) Vitamin B12 1894 H (193-986) pg/ml Folate 12.00 (>5.38) ng/ml Specimen Hemolysis Levetiracetam (12.0-46.0) mcg/mL Lyme Disease IgG Ab (Negative) Lyme Disease IgM Ab (Negative) 04/30/20 04/30/20 04/30/20 Range/Units 10:06 10:06 10:06 WBC (4.8-10.8) K/uL RBC (4.2-5.4) M/uL Hgb (12.0-16.0) g/dL Hct (37-47) % MCV (80-100) fL MCH (25-34) pg MCHC (32-36) g/dL RDW Std Deviation (36.4-46.3) fL RDW Coeff of Darin (11.5-14.5) % Plt Count (130-400) K/uL MPV (7.4-10.4) fL Immature Gran % (Auto) % Neut % (Auto) % Lymph % (Auto) % [place] % (Auto) % Eos % (Auto) % Baso % (Auto) % Neut # (Auto) (1.4-6.5) K/uL Lymph # (Auto) (1.2-3.4) K/uL [place] # (Auto) (0.11-0.59) K/uL Eos # (Auto) (0-0.5) K/uL Baso # (Auto) (0-0.2) K/uL Immature Gran # (Auto) (0.00-0.02) K/uL ESR 27 H (0-21) mm/hr Sodium 137 (136-145) mmol/L Potassium 4.1 (3.5-5.1) mmol/L Chloride 103 (98-107) mmol/L Carbon Dioxide 26 (21-32) mmol/L Anion Gap 8.0 (3-11) BUN 16 (7-18) mg/dl Creatinine 0.86 (0.6-1.2) mg/dl Est Cr Clr Drug Dosing 81.1 ml/min Est GFR ( Amer) 84.5 Est GFR (Non-Af Amer) 72.9 BUN/Creatinine Ratio 19.2 (10-20) Glucose 83 (70-99) mg/dl Calcium 9.3 (8.5-10.1) mg/dl Total Bilirubin 0.6 (0.2-1) mg/dl AST 34 (15-37) U/L ALT 24 (12-78) U/L Alkaline Phosphatase 122 H (45-117) U/L Total Creatine Kinase 141 (26-192) U/L C-Reactive Protein 4.21 H (0-0.29) mg/dl Total Protein 7.7 (6.4-8.2) gm/dl Albumin 3.3 L (3.4-5.0) gm/dl Globulin 4.4 H (2.5-4.0) gm/dl Albumin/Globulin Ratio 0.7 L (0.9-2) Vitamin B12 (193-986) pg/ml Folate (>5.38) ng/ml Specimen Hemolysis Levetiracetam (12.0-46.0) mcg/mL Lyme Disease IgG Ab (Negative) Lyme Disease IgM Ab (Negative) 04/30/20 04/30/20 04/27/20 Range/Units 10:06 10:05 08:45 WBC 7.63 (4.8-10.8) K/uL RBC 4.60 (4.2-5.4) M/uL Hgb 13.4 (12.0-16.0) g/dL Hct 41.4 (37-47) % MCV 90.0 (80-100) fL MCH 29.1 (25-34) pg MCHC 32.4 (32-36) g/dL RDW Std Deviation 46.0 (36.4-46.3) fL RDW Coeff of Darin 14.0 (11.5-14.5) % Plt Count 239 (130-400) K/uL MPV 11.3 H (7.4-10.4) fL Immature Gran % (Auto) % Neut % (Auto) % Lymph % (Auto) % [place] % (Auto) % Eos % (Auto) % Baso % (Auto) % Neut # (Auto) (1.4-6.5) K/uL Lymph # (Auto) (1.2-3.4) K/uL [place] # (Auto) (0.11-0.59) K/uL Eos # (Auto) (0-0.5) K/uL Baso # (Auto) (0-0.2) K/uL Immature Gran # (Auto) (0.00-0.02) K/uL ESR (0-21) mm/hr Sodium (136-145) mmol/L Potassium (3.5-5.1) mmol/L Chloride (98-107) mmol/L Carbon Dioxide (21-32) mmol/L Anion Gap (3-11) BUN (7-18) mg/dl Creatinine (0.6-1.2) mg/dl Est Cr Clr Drug Dosing ml/min Est GFR ( Amer) Est GFR (Non-Af Amer) BUN/Creatinine Ratio (10-20) Glucose (70-99) mg/dl Calcium (8.5-10.1) mg/dl Total Bilirubin (0.2-1) mg/dl AST (15-37) U/L ALT (12-78) U/L Alkaline Phosphatase (45-117) U/L Total Creatine Kinase (26-192) U/L C-Reactive Protein (0-0.29) mg/dl Total Protein (6.4-8.2) gm/dl Albumin (3.4-5.0) gm/dl Globulin (2.5-4.0) gm/dl Albumin/Globulin Ratio (0.9-2) Vitamin B12 (193-986) pg/ml Folate (>5.38) ng/ml Specimen Hemolysis Levetiracetam 51.8 H (12.0-46.0) mcg/mL Lyme Disease IgG Ab Negative (Negative) Lyme Disease IgM Ab Negative (Negative) Diagnostic Findings Shoulder 2 View IMPRESSION: No acute fracture or dislocation. CT Head IMPRESSION: No acute intracranial abnormality. PG Care Time/CCT Total # of Minutes Spent Total Time Spent with Patient: Total time spent is greater than 50% in coordination of care (as documented) at patient's floor/unit and/or counseling patient: Coding Level of Care Code 62252 Subseq Hosp Care Lvl 3 Diagnoses Weakness R53.1 UTI (urinary tract infection) N39.0 Hematuria presence: without hematuria Urinary tract infection type: site unspecified Pneumonia J18.9 Laterality: unspecified laterality Lung location: unspecified part of lung Pneumonia type: due to unspecified organism HTN (hypertension) I10 Hypertension type: unspecified Hypothyroidism E03.9 Seizure disorder G40.909 Obesity (BMI 30-39.9) E66.9 Restless leg G25.81 Peripheral neuropathy G62.9 Vitamin D deficiency E55.9 (1) UTI (urinary tract infection) Hematuria presence: without hematuria Urinary tract infection type: site unspecified Qualified Code(s): N39.0 - Urinary tract infection, site not specified (2) HTN (hypertension) Hypertension type: unspecified Qualified Code(s): I10 - Essential (primary) hypertension (3) Pneumonia Laterality: unspecified laterality Lung location: unspecified part of lung Pneumonia type: due to unspecified organism Qualified Code(s): J18.9 - Pneumonia, unspecified organism
--- NOTE | 2020-05-01 10:19 | XCELERA ---
[id number] \\[id number]_[id number]}[id number]
[2020-05-01] MEDS: levoFLOXacin/D5W 500 MG/100 ML BAG IV SCH (12:05)
[2020-05-01] MEDS: oxyCODONE HCL IR 5 MG TAB (IMMEDIATE RELEASE) PO PRN ×2 (12:05→19:20)
[2020-05-01] MEDS ORDERED: hydrALAZINE HCL 20 MG/ML VIAL IV STA (12:34)
[2020-05-01] MEDS ORDERED: SODIUM CHLORIDE 0.9% 1000ML 500 ML IV ONE (18:18)
[2020-05-01] MEDS ORDERED: AZITHROMYCIN 500 MG in DEXTROSE 5% 250 ML IV ONE (19:00)
[2020-05-01] MEDS: SODIUM CHLORIDE 0.9% 1000ML 1,000 ML IV SCH (19:20)
[2020-05-01 19:55] LABS: Adenovirus PCR Not Detected (NotDetected); Bordetella parapertussis PCR Not Detected (NotDetected); Bordetella pertussis PCR Not Detected (NotDetected); Chlamydia pneumoniae PCR Not Detected (NotDetected); Coronavirus 229E PCR Not Detected (NotDetected); Coronavirus CoV-2 (COVID19)PCR Not Detected (NotDetected); Coronavirus HKU1 PCR Not Detected (NotDetected); Coronavirus NL63 PCR Not Detected (NotDetected); Coronavirus OC43PCR Not Detected (NotDetected); Human Metapneumovirus PCR Not Detected (NotDetected); Influenza A PCR Not Detected (NotDetected); Influenza B PCR Not Detected (NotDetected); Mycoplasma pneumoniae PCR Not Detected (NotDetected); Parainfluenza Virus 1 PCR Not Detected (NotDetected); Parainfluenza Virus 2 PCR Not Detected (NotDetected); Parainfluenza Virus 3 PCR Not Detected (NotDetected); Parainfluenza Virus 4 PCR Not Detected (NotDetected); Respiratory Syncytial VirusPCR Not Detected (NotDetected); Rhinovirus/Enterovirus PCR Not Detected (NotDetected)
[2020-05-01] MEDS: MAGNESIUM OXIDE 400 MG TAB PO SCH (20:46)
[2020-05-01] MEDS: rOPINIRole HCL 1 MG TABLET PO SCH (20:47)
--- NOTE | 2020-05-01 20:50 | Ultrasound Report ---
US renal/blad retro comp HISTORY: 59 years-old Female sepsis, klebsiella UTI acute sepsis with urinary tract infection COMPARISON: None TECHNIQUE: Multiple real-time sonographic images of the kidneys and urinary bladder were obtained ass essing grayscale appearance and color flow FINDINGS: Right kidney measures 9.3 x 4.4 x 4.9 cm and demonstrates no renal calculi or hydronephrosis. Mild di ffuse cortical thinning. Left kidney measures 9.6 x 4.3 x 3.6 cm and demonstrates mild diffuse cortical thinning. Mild left-si ded pelviectasis is likely physiologic. No hydronephrosis or renal calculi. Dependent layering debris within the urinary bladder. Ureteral jets not identified. Incidental note i s made of increased echogenicity of the liver suggestive of hepatic steatosis. IMPRESSION: 1. No renal calculi or hydronephrosis. 2. Cortical thinning of the bilateral kidneys. 3. Dependent debris within the urinary bladder lumen. Correlate with urinalysis. 4. Hepatic steatosis. ACT 112: Negative or not required by law. The above report was generated using voice recognition software. It may contain grammatical, syntax o r spelling errors. Electronically signed by: Nilesh Marquez M.D. 05/01/2020 8:49 PM
[2020-05-01] MEDS: cefTRIAXone SODIUM 2,000 MG in DEXTROSE 5% 50 ML IV SCH (21:32)
[2020-05-02] MEDS: oxyCODONE HCL IR 5 MG TAB (IMMEDIATE RELEASE) PO PRN ×4 (02:53→22:28)
[2020-05-02] MEDS: traMADol HCL 50 MG TABLET PO PRN (05:38)
[2020-05-02] MEDS: LEVOTHYROXINE SODIUM 25 MCG TABLET PO SCH (05:39)
[2020-05-02] MEDS: SODIUM CHLORIDE 0.9% 1000ML 1,000 ML IV SCH ×2 (06:52→19:36)
[2020-05-02 07:05] LABS: Hematocrit (blood only) 46.4 % (37-47); Mean Corpuscular Hgb Conc 32.3 g/dL (32-36); Mean Corpuscular Volume 89.6 fL (80-100); Mean Platelet Volume 11.5 fL (7.4-10.4); Platelet Count 273 K/uL (130-400); RDW Coefficient of Variation 14.4 % (11.5-14.5); RDW Standard Deviation 46.9 fL (36.4-46.3); Red Blood Count 5.18 M/uL (4.2-5.4); White Blood Count 10.91 K/uL (4.8-10.8)
[2020-05-02 07:20] LABS: Potassium 3.9 mmol/L (3.5-5.1)
[2020-05-02 07:21] LABS: Albumin Globulin Ratio 0.7 (0.9-2); Albumin Level 3.2 gm/dl (3.4-5.0); Bilirubin,Total 0.4 mg/dl (0.2-1); C Reactive Protein 2.97 mg/dl (0-0.29); Calcium 9.1 mg/dl (8.5-10.1); Creatinine Clr Calc Pharmacy 77.5 ml/min; Globulin 4.5 gm/dl (2.5-4.0); Total Protein 7.7 gm/dl (6.4-8.2)
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
[2020-05-02] MEDS: lisinopril 20 MG TAB PO SCH (09:20)
[2020-05-02] MEDS: DULoxetine HCL 60 MG CAP PO SCH (09:20)
[2020-05-02] MEDS: CHOLECALCIFEROL 1,000 UNITS 25 MCG TAB PO SCH (09:20)
[2020-05-02] MEDS: GABAPENTIN 300 MG CAP PO SCH (09:20)
[2020-05-02] MEDS: levETIRAcetam 500 MG TAB PO SCH ×2 (09:20→21:01)
[2020-05-02] MEDS: ENOXAPARIN INJ 40 MG/0.4 ML SYR SQ SCH (09:21)
[2020-05-02] MEDS: LIDOCAINE 5% 1 PATCH TD SCH (09:21)
[2020-05-02] MEDS: guaiFENesin 600 MG TABCR PO SCH ×2 (09:21→21:02)
[2020-05-02] MEDS: CYANOCOBALAMIN 500 MCG TABLET (VITAMIN B-12) PO SCH (09:21)
[2020-05-02] MEDS ORDERED: METOPROLOL TARTRATE 25 MG TAB PO SCH (09:45)
--- NOTE | 2020-05-02 09:54 | Hospitalist Progress Note ---
Date of Service May 02, 2020 Assessment & Plan (1) Weakness: * PT/OT consults for profound progressive weakness over the past 2 days, s/p fall/slip from off the toilet --> rec rehab. Ref sent for Koko Garcia * Procal, ferritin, LDH wnl * CK was 352 on admission and given IVF with repeat wnl Neurology consulted today * CT Head negative * Patient has pain AND weakness though, concerning for inflammatory myopathy vs PMR vs myasthenia * MRI Brain/Cervical Spine ordered * Repeat CK wnl * CRP 2.97 (4.21), ESR 54 (27) -- Received outpatient records from rheumatology who was going to treat patient for PMR with proximal muscle weakness * Added SPEP, myasthenia labs, BRIAN 12, aldolase, acetylcholine labs * General Surgery consulted for muscle biopsy * Ideally would like to wait for high-dose steroids until testing/biopsy complete Will need outpatient EMG Ortho spine consulted ECHO without vegetation * BCx NGTD Continues to be afebrile * Lyme negative * *Keppra level ELEVATED at 51.8 -- decreased keppra to 500mg BID . will need repeat level outpt (2) UTI (urinary tract infection): * ->100,000 Klebsiella pneumonia 8 colonies growing, resistant to ampicillin, nitrofurantoin, tetracycline - fax being sent from [facility] for chart, confirmed over the phone. * Cr elevated with KAYLIE on admission, Cr 1.38. Resolved with IVF to 0.93 * IV Levaquin completed course * UC no growth, bc ngtd * Patient denies hematuria, dysuria, increase in frequency, no cva tenderness on exam so unlikely to be pyelonephritis (3) Pneumonia: * Possible as per CXR-- R basilar parenchymal opacities, statistically atelectatic although infectious/inflammatory could appear similar * COVID negative. Biofire negative * Afebrile, no WBC, procal wnl on admission but repeat 0.05 * Switched to Ceftriaxone/Azithromycin last evening for broaded coverage any hypoxia with O2 sat 86% on RA, currently 97% on 2L * Nebs prn sob/wheezing * Tylenol prn * See above (4) HTN (hypertension): * No hx of such, BP significantly elevated here * Pt reports pain in back as primary issues as well as the R shoulder blade region - this may be related to possible pneumonia. * Increased lisinopril to 20mg today -- BP 142/87. Titrate as needed. Consider addition of BB * Hydralazine prn (5) Hypothyroidism: * TSH 2.210 * Continue levothyroxine 25 mcg daily (6) Seizure disorder: * Last seizure like activity was approximately 3 years ago per patient, spent 1 week in continuous EEG unit at that time without findings other than one abnormal EEG. Follows with Dr. Borja in neurology as outpatient routinely * [employer] Keppra 2000 mg * Keppra level elevated as above -- continuing with 500mg BID after discussion with Dr. Andres * Neuro consult as above for tomorrow morning (7) Obesity (BMI 30-39.9): * BMI of 39.7, diet encouraged with poor ability to exercise (8) Restless leg: * May continue requip 2 mg po HS (9) Peripheral neuropathy: * Cont gabapentin mg qam, cymbalta 60 mg qam * Bilateral up to level of mid-crystal on exam * B12 elevated, folate wnl * If continued pain persists, consider consulting pain management as recent switch from IV Dilaudid to PO agents given weakness/lethargy (10) Vitamin D deficiency: * Cont supplementation Sepsis -secondary to UTI/pneumonia/inflammatory myopathy -Tachycardic with lactic >2 with repeat normal after 500cc NSS evening 05/01 DVT proph: * joceline gutierrez subq Admission and Anticipated Discharge Date Admission Date: April 30, 2020 Subjective Patient evaluated this afternoon. Discussed rheumatology outpatient notes with concerns for PMR, however does not cause this type of pain. Neurology evaluated this morning and would like MRI Brain/Cervical Spine and muscle biopsy. Will also need outpatient EMG testing She states she did see surgeon and plans for biopsy tomorrow prior to starting a ny steroids for treatment, which would be beneficial for an inflammatory myopathy as well as PMR. Other possible myasthenia discussed given progressive difficulty swallowing and closing her eyes as well as increased fatigue with activity. She has been able to lift right arm to elbow but has been crawling to help with feeding, which has been difficulty. She voices some frustrations about nursing staff last evening and not being able to get to her call bbell or feeling like she is being written off as not wanting to do things when she is physically not able. Shortness of breath when she has pain but denies sputum production or cough. Some numbness reported to left arm. Headache reported this afternoon with elevated blood pressures and we will attempt to get that under better control, but is concerning for a GCA if persists with improvement of BPs. She states the tramadol ineffective at controlling her pain but the oxycodone has been more effective. Will increase to 2 tablets. She states pain primarily to her neck area as well as low back pain today and believes she had her bed changed and this is very uncomfortable for her. Nursing and myself assisted patient up in bed and raised. Did have some choking on sip of water and she states swallowing as been progressively worse, especially when "younger nurses throw all the pills in my mouth and walk away" and felt they were not being very compassionate towards her. Patient to remain upright for all meals and will order minced/moist diet with gravies for easier swallowing. If continues would need formal eval. Discussed we will attempt trying to order low airloss mattress for more comfort but will also have ortho spine review MRI results to see if maybe combination of issues causing current weakness and pain. Questions/concerns addressed at this time. Review of Systems Review of Systems: All systems reviewed & are unremarkable except as noted in HPI & below Physical Exam Constitutional: well developed, well nourished and + obese; + uncomfortable Eyes: + anicteric sclerae and PERRL ENMT: Ears: no hearing impairment dry mm Neck: normal visual inspection Respiratory: normal respiratory effort; no labored breathing and + not able to speak in complete sentence (fatigues easily with speaking) Auscultation: + diminished lung sounds (throughout) and + crackles (R base); no wheezes 97% on 2L NC Cardiovascular: Rate/Rhythm: regular rate and regular rhythm Heart Sounds: no murmur Vessels: no JVD (unable to assess due to body habitus) Extremities: + edema (1+ b/l LE) Gastrointestinal (Abdomen): normal bowel sounds, soft, nontender, no he patosplenomegaly Musculoskeletal: Head/Neck/Chest: normocephalic and head atraumatic Neurologic: weakness with shoulder shrug neck with discomfort on movement reported, generally weak with movement RUE > LUE weakness decreased strength UE b/l 2/5 deltoids reflexes 1/4 UE, unable to produce b/l LE no obvious atrophy b/l LE neuropathy to light touch peripheral pulses palpable bilaterally Psychiatric: Orientation: alert and oriented x 3 Results & Data Results & Data ([facility]) Vital Signs (Past 12 Hours) Vital Signs Temp Pulse Resp BP BP Pulse Ox 05/02/20 08:10 36.7 C 104 H 18 166/95 H 05/02/20 03:41 36.5 C 103 H 18 144/85 H 92 05/02/20 00:13 36.5 C 99 H 20 132/79 92 Laboratory Results 05/02/20 05/02/20 05/02/20 Range/Units 09:10 09:10 08:09 WBC (4.8-10.8) K/uL RBC (4.2-5.4) M/uL Hgb (12.0-16.0) g/dL Hct (37-47) % MCV (80-100) fL MCH (25-34) pg MCHC (32-36) g/dL RDW Std Deviation (36.4-46.3) fL RDW Coeff of Darin (11.5-14.5) % Plt Count (130-400) K/uL MPV (7.4-10.4) fL ESR 54 H Sodium (136-145) mmol/L Potassium (3.5-5.1) mmol/L Chloride (98-107) mmol/L Carbon Dioxide (21-32) mmol/L Anion Gap (3-11) BUN (7-18) mg/dl Creatinine (0.6-1.2) mg/dl Est Cr Clr Drug Dosing ml/min Est GFR ( Amer) Est GFR (Non-Af Amer) BUN/Creatinine Ratio (10-20) Glucose (70-99) mg/dl Lactate (0.4-2.0) mmol/L Calcium (8.5-10.1) mg/dl Total Bilirubin (0.2-1) mg/dl AST (15-37) U/L ALT (12-78) U/L Alkaline Phosphatase (45-117) U/L Total Creatine Kinase Pending (26-192) U/L C-Reactive Protein (0-0.29) mg/dl Total Protein (6.4-8.2) gm/dl Albumin (3.4-5.0) gm/dl Globulin (2.5-4.0) gm/dl Albumin/Globulin Ratio (0.9-2) Aldolase Pending Procalcitonin (0-0.5) ng/ml Nasal Screen MRSA (PCR) (Negative) BRIAN Screen Pending SS-A/Ro Antibody Pending SS-B/La Antibody Pending Sm (Fontaine) Antibody Pending BORDER POLICE Antibody Pending Scl-70 Scleroderma Ab Pending Anti-ds DNA (Crithidia) Pending Chromatin Antibody Pending Anti-Centromere Ab Pending Thyroid Antimicrosomal Pending Acetylchol Rcpt Block Ab Pending Acetylchol Rcpt Bind Ab Pending Acetylchol Rcpt Modu Ab Pending Anti-Cardiolipin IgG Ab Pending Anti-Cardiolipin IgA Ab Pending Anti-Cardiolipin IgM Ab Pending Complement C3 Pending Complement C4 Pending Adenovirus (PCR) (NotDetected) B. pertussis DNA (PCR) (NotDetected) B.parapertussis DNA PCR (NotDetected) C. pneumoniae DNA (PCR) (NotDetected) Coronavirus OC43 (PCR) (NotDetected) Coronavirus HKU1 (PCR) (NotDetected) Coronavirus 229E (PCR) (NotDetected) COVID-19 PCR (NotDetected) Coronavirus NL63 (PCR) (NotDetected) Human Metapneumovir PCR (NotDetected) Influenza Type A (PCR) (NotDetected) Influenza Type B (PCR) (NotDetected) M. pneumoniae (PCR) (NotDetected) Parainfluenza 1 (PCR) (NotDetected) Parainfluenza 2 (PCR) (NotDetected) Parainfluenza 3 (PCR) (NotDetected) Parainfluenza 4 (PCR) (NotDetected) RSV (PCR) (NotDetected) Entero/Rhino (PCR) (NotDetected) 05/02/20 05/02/20 05/02/20 Range/Units 06:34 06:34 06:27 WBC 10.91 H (4.8-10.8) K/uL RBC 5.18 (4.2-5.4) M/uL Hgb 15.0 (12.0-16.0) g/dL Hct 46.4 (37-47) % MCV 89.6 (80-100) fL MCH 29.0 (25-34) pg MCHC 32.3 (32-36) g/dL RDW Std Deviation 46.9 H (36.4-46.3) fL RDW Coeff of Darin 14.4 (11.5-14.5) % Plt Count 273 (130-400) K/uL MPV 11.5 H (7.4-10.4) fL ESR Cancelled Sodium 137 (136-145) mmol/L Potassium 3.9 (3.5-5.1) mmol/L Chloride 104 (98-107) mmol/L Carbon Dioxide 28 (21-32) mmol/L Anion Gap 5.0 (3-11) BUN 22 H (7-18) mg/dl Creatinine 0.90 (0.6-1.2) mg/dl Est Cr Clr Drug Dosing 77.5 ml/min Est GFR ( Amer) 80.0 Est GFR (Non-Af Amer) 69.0 BUN/Creatinine Ratio 24.0 H (10-20) Glucose 103 H (70-99) mg/dl Lactate (0.4-2.0) mmol/L Calcium 9.1 (8.5-10.1) mg/dl Total Bilirubin 0.4 (0.2-1) mg/dl AST 30 (15-37) U/L ALT 25 (12-78) U/L Alkaline Phosphatase 113 (45-117) U/L Total Creatine Kinase (26-192) U/L C-Reactive Protein 2.97 H (0-0.29) mg/dl Total Protein 7.7 (6.4-8.2) gm/dl Albumin 3.2 L (3.4-5.0) gm/dl Globulin 4.5 H (2.5-4.0) gm/dl Albumin/Globulin Ratio 0.7 L (0.9-2) Aldolase Procalcitonin (0-0.5) ng/ml Nasal Screen MRSA (PCR) (Negative) BRIAN Screen SS-A/Ro Antibody SS-B/La Antibody Sm (Font[place]) Antibody BORDER POLICE Antibody Scl-70 Scleroderma Ab Anti-ds DNA (Crithidia) Chromatin Antibody Anti-Centromere Ab Thyroid Antimicrosomal Acetylchol Rcpt Block Ab Acetylchol Rcpt Bind Ab Acetylchol Rcpt Modu Ab Anti-Cardiolipin IgG Ab Anti-Cardiolipin IgA Ab Anti-Cardiolipin IgM Ab Complement C3 Complement C4 Adenovirus (PCR) (NotDetected) B. pertussis DNA (PCR) (NotDetected) B.parapertussis DNA PCR (NotDetected) C. pneumoniae DNA (PCR) (NotDetected) Coronavirus OC43 (PCR) (NotDetected) Coronavirus HKU1 (PCR) (NotDetected) Coronavirus 229E (PCR) (NotDetected) COVID-19 PCR (NotDetected) Coronavirus NL63 (PCR) (NotDetected) Human Metapneumovir PCR (NotDetected) Influenza Type A (PCR) (NotDetected) Influenza Type B (PCR) (NotDetected) M. pneumoniae (PCR) (NotDetected) Parainfluenza 1 (PCR) (NotDetected) Parainfluenza 2 (PCR) (NotDetected) Parainfluenza 3 (PCR) (NotDetected) Parainfluenza 4 (PCR) (NotDetected) RSV (PCR) (NotDetected) Entero/Rhino (PCR) (NotDetected) 05/01/20 05/01/20 05/01/20 Range/Units 21:57 18:35 18:35 WBC (4.8-10.8) K/uL RBC (4.2-5.4) M/uL Hgb (12.0-16.0) g/dL Hct (37-47) % MCV (80-100) fL MCH (25-34) pg MCHC (32-36) g/dL RDW Std Deviation (36.4-46.3) fL RDW Coeff of Darin (11.5-14.5) % Plt Count (130-400) K/uL MPV (7.4-10.4) fL ESR Sodium (136-145) mmol/L Potassium (3.5-5.1) mmol/L Chloride (98-107) mmol/L Carbon Dioxide (21-32) mmol/L Anion Gap (3-11) BUN (7-18) mg/dl Creatinine (0.6-1.2) mg/dl Est Cr Clr Drug Dosing ml/min Est GFR ( Amer) Est GFR (Non-Af Amer) BUN/Creatinine Ratio (10-20) Glucose (70-99) mg/dl Lactate 1.8 (0.4-2.0) mmol/L Calcium (8.5-10.1) mg/dl Total Bilirubin (0.2-1) mg/dl AST (15-37) U/L ALT (12-78) U/L Alkaline Phosphatase (45-117) U/L Total Creatine Kinase (26-192) U/L C-Reactive Protein (0-0.29) mg/dl Total Protein (6.4-8.2) gm/dl Albumin (3.4-5.0) gm/dl Globulin (2.5-4.0) gm/dl Albumin/Globulin Ratio (0.9-2) Aldolase Procalcitonin (0-0.5) ng/ml Nasal Screen MRSA (PCR) Negative (Negative) BRIAN Screen SS-A/Ro Antibody SS-B/La Antibody Sm (Font[place]) Antibody BORDER POLICE Antibody Scl-70 Scleroderma Ab Anti-ds DNA (Crithidia) Chromatin Antibody Anti-Centromere Ab Thyroid Antimicrosomal Acetylchol Rcpt Block Ab Acetylchol Rcpt Bind Ab Acetylchol Rcpt Modu Ab Anti-Cardiolipin IgG Ab Anti-Cardiolipin IgA Ab Anti-Cardiolipin IgM Ab Complement C3 Complement C4 Adenovirus (PCR) Not Detected (NotDetected) B. pertussis DNA (PCR) Not Detected (NotDetected) B.parapertussis DNA PCR Not Detected (NotDetected) C. pneumoniae DNA (PCR) Not Detected (NotDetected) Coronavirus OC43 (PCR) Not Detected (NotDetected) Coronavirus HKU1 (PCR) Not Detected (NotDetected) Coronavirus 229E (PCR) Not Detected (NotDetected) COVID-19 PCR Not Detected (NotDetected) Coronavirus NL63 (PCR) Not Detected (NotDetected) Human Metapneumovir PCR Not Detected (NotDetected) Influenza Type A (PCR) Not Detected (NotDetected) Influenza Type B (PCR) Not Detected (NotDetected) M. pneumoniae (PCR) Not Detected (NotDetected) Parainfluenza 1 (PCR) Not Detected (NotDetected) Parainfluenza 2 (PCR) Not Detected (NotDetected) Parainfluenza 3 (PCR) Not Detected (NotDetected) Parainfluenza 4 (PCR) Not Detected (NotDetected) RSV (PCR) Not Detected (NotDetected) Entero/Rhino (PCR) Not Detected (NotDetected) 05/01/20 05/01/20 05/01/20 Range/Units 17:19 12:53 05:50 WBC (4.8-10.8) K/uL RBC (4.2-5.4) M/uL Hgb (12.0-16.0) g/dL Hct (37-47) % MCV (80-100) fL MCH (25-34) pg MCHC (32-36) g/dL RDW Std Deviation (36.4-46.3) fL RDW Coeff of Darin (11.5-14.5) % Plt Count (130-400) K/uL MPV (7.4-10.4) fL ESR Sodium (136-145) mmol/L Potassium (3.5-5.1) mmol/L Chloride (98-107) mmol/L Carbon Dioxide (21-32) mmol/L Anion Gap (3-11) BUN (7-18) mg/dl Creatinine (0.6-1.2) mg/dl Est Cr Clr Drug Dosing ml/min Est GFR ( Amer) Est GFR (Non-Af Amer) BUN/Creatinine Ratio (10-20) Glucose (70-99) mg/dl Lactate 2.6 H* (0.4-2.0) mmol/L Calcium (8.5-10.1) mg/dl Total Bilirubin (0.2-1) mg/dl AST (15-37) U/L ALT (12-78) U/L Alkaline Phosphatase (45-117) U/L Total Creatine Kinase 115 (26-192) U/L C-Reactive Protein (0-0.29) mg/dl Total Protein (6.4-8.2) gm/dl Albumin (3.4-5.0) gm/dl Globulin (2.5-4.0) gm/dl Albumin/Globulin Ratio (0.9-2) Aldolase Procalcitonin 0.05 (0-0.5) ng/ml Nasal Screen MRSA (PCR) (Negative) BRIAN Screen SS-A/Ro Antibody SS-B/La Antibody Sm ([place]) Antibody BORDER POLICE Antibody Scl-70 Scleroderma Ab Anti-ds DNA (Crithidia) Chromatin Antibody Anti-Centromere Ab Thyroid Antimicrosomal Acetylchol Rcpt Block Ab Acetylchol Rcpt Bind Ab Acetylchol Rcpt Modu Ab Anti-Cardiolipin IgG Ab Anti-Cardiolipin IgA Ab Anti-Cardiolipin IgM Ab Complement C3 Complement C4 Adenovirus (PCR) (NotDetected) B. pertussis DNA (PCR) (NotDetected) B.parapertussis DNA PCR (NotDetected) C. pneumoniae DNA (PCR) (NotDetected) Coronavirus OC43 (PCR) (NotDetected) Coronavirus HKU1 (PCR) (NotDetected) Coronavirus 229E (PCR) (NotDetected) COVID-19 PCR (NotDetected) Coronavirus NL63 (PCR) (NotDetected) Human Metapneumovir PCR (NotDetected) Influenza Type A (PCR) (NotDetected) Influenza Type B (PCR) (NotDetected) M. pneumoniae (PCR) (NotDetected) Parainfluenza 1 (PCR) (NotDetected) Parainfluenza 2 (PCR) (NotDetected) Parainfluenza 3 (PCR) (NotDetected) Parainfluenza 4 (PCR) (NotDetected) RSV (PCR) (NotDetected) Entero/Rhino (PCR) (NotDetected) PG Care Time/CCT Total # of Minutes Spent Total Time Spent with Patient: Total time spent is greater than 50% in coordination of care (as documented) at patient's floor/unit and/or counseling patient: Coding Level of Care Code 16879 Subseq Hosp Care Lvl 3 Diagnoses Weakness R53.1 UTI (urinary tract infection) N39.0 Hematuria presence: without hematuria Urinary tract infection type: site unspecified Pneumonia J18.9 Laterality: unspecified laterality Lung location: unspecified part of lung Pneumonia type: due to unspecified organism HTN (hypertension) I10 Hypertension type: unspecified Hypothyroidism E03.9 Seizure disorder G40.909 Obesity (BMI 30-39.9) E66.9 Restless leg G25.81 Peripheral neuropathy G62.9 Vitamin D deficiency E55.9 (1) UTI (urinary tract infection) Hematuria presence: without hematuria Urinary tract infection type: site unspecified Qualified Code(s): N39.0 - Urinary tract infection, site not specified (2) HTN (hypertension) Hypertension type: unspecified Qualified Code(s): I10 - Essential (primary) hypertension (3) Pneumonia Laterality: unspecified laterality Lung location: unspecified part of lung Pneumonia type: due to unspecified organism Qualified Code(s): J18.9 - Pneumonia, unspecified organism
[2020-05-02] MEDS ORDERED: GADOBUTROL 65ML VIAL IV ONE (13:58)
--- NOTE | 2020-05-02 14:16 | Magnetic Resonance Report ---
MRI OF THE BRAIN COMBO CLINICAL HISTORY: Generalized weakness. Falls. COMPARISON STUDY: CT of the brain dated 04/30/2020. TECHNIQUE: MRI of the brain was performed utilizing various T1 and T2-weighted sequences in the axial , sagittal, and coronal planes. Contrast-enhanced sequences were acquired following the administratio n of 10 cc of Gadavist. The examination was performed using the seizure protocol. FINDINGS: Brain parenchyma: There are foci of T2 signal abnormality scattered throughout the subcortical and pe riventricular white matter. The brain parenchyma is otherwise normal in appearance. There is no hemor rhage or mass effect. There is no restricted diffusion to suggest acute ischemia. No enhancing mass l esion is identified on the postcontrast images. Scott-white matter differentiation is preserved. No ex tra-axial fluid collection is seen. The cerebellar tonsils are normal in configuration. The hippocamp i are normal and symmetric. Ventricles, sulci, and cisterns: Normal in configuration. Pituitary and sella: Unremarkable. Intracranial vasculature: Normal flow voids are maintained at the skull base. Orbits: The bony orbits are grossly intact. Orbital contents are normal in appearance. Sinuses and mastoids: Clear. Calvarium: Unremarkable. Cervical cord: Partially visualized cervical spinal cord is normal in morphology and signal intensity . IMPRESSION: 1. No acute intracranial abnormality. 2. Scattered foci of T2 signal abnormality seen throughout the white matter are nonspecific and likel y represent mild microangiopathic change. Clinical correlation will be required. ACT 112: Negative or not required by law. Electronically signed by: Juan Blue M.D. 05/02/2020 2:15 PM
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
[2020-05-02] MEDS: METOPROLOL TARTRATE 25 MG TAB PO SCH ×2 (14:27→21:01)
--- NOTE | 2020-05-02 14:57 | Magnetic Resonance Report ---
MRI OF THE CERVICAL SPINE COMBO CLINICAL HISTORY: Falls. Generalized weakness. Neck pain. COMPARISON STUDY: No priors. TECHNIQUE: MRI of the cervical spine is performed utilizing various T1 and T2-weighted sequences in t he axial and sagittal planes. Contrast-enhanced sequences are acquired following the IV administratio n of 10 cc of Gadavist. The examination is modestly degraded by motion artifact. FINDINGS: Cervical spine: Vertebral body height and alignment are maintained throughout the cervical spine. The re is straightening of the cervical lordosis. The atlantodental articulation is maintained. The spino us processes appear intact. Small anterior osteophytes are seen throughout. A hemangioma is noted in the body of T2. No destructive bony lesion is seen. Intervertebral discs: Degenerative disc desiccation is seen throughout the cervical spine. Mild loss of height is seen at most levels. Loss of height is moderate at C5-C6 and C6-C7. Spinal cord: The cervical spinal cord is normal in morphology and signal intensity. No abnormal postc ontrast enhancement is identified. C2-C3: Uncovertebral and facet arthropathy cause moderate left and mild right neural foraminal stenos is. The central canal is clear. C3-C4: A posterior disc osteophyte complex minimally effaces the ventral subarachnoid space. Uncovert ebral and facet arthropathy cause severe left and moderate right neural foraminal stenosis. C4-C5: A posterior disc osteophyte complex eccentric to the left abuts the ventral cord. Uncovertebra l and facet arthropathy cause severe left and moderate right neural foraminal stenosis. C5-C6: A posterior disc osteophyte complex effaces the ventral subarachnoid space. There is right lat eral disc bulge. In conjunction with uncovertebral and facet arthropathy, this causes severe right-si ded neural foraminal stenosis and likely impinges on the exiting C4 nerve root. Uncovertebral and fac et arthropathy cause moderate neural foraminal stenosis on the left. C6-C7: A posterior disc osteophyte complex abuts the ventral cord. Uncovertebral and facet arthropath y cause moderate left and mild right neural foraminal stenosis. C7-T1: Unremarkable. Soft tissues: The prevertebral and paraspinous soft tissues are normal as imaged. Brain parenchyma: The partially visualized brain parenchyma at the skull base is normal in appearance . IMPRESSION: 1. The cervical spinal cord is normal in morphology and signal intensity with no abnormal postcontras t enhancement. 2. Multilevel cervical spondylosis as above. See discussion for detailed level by level analysis. Dictated: 05/02/2020 2:15 PM Transcribed: 05/02/2020 2:54 PM Nancy [id number] EMANI_Carl Electronically signed by: Juan Blue M.D. 05/02/2020 2:55 PM
--- NOTE | 2020-05-02 15:59 | Anesthesiology Consultation ---
Date of Service May 02, 2020 Covid 19 negative on 05/01/20. Assessment & Plan (1) Encounter for pre-operative examination: Chart Review Chart Review: Acceptable Risk for Surgery and Patient NOT seen in Pre Admission Testing Consults Requested none History Surgery Operation Date: 05/03/20 12:10 Proposed Procedures p Right Arm Deltoid Muscle Biopsy - Aaliyah Garcia MD Height/Weight Height: 5 ft 4 in Weight: 105 kg Allergies Allergy/AdvReac Type Severity Reaction Status Date / Time No Known Allergies Allergy Unverified 04/27/20 10:58 Medications Home Medications Medication Instructions Recorded Confirmed Last Taken cholecalciferol (vitamin D3) 50 mcg PO QAM 04/27/20 04/27/20 04/26/20 [Vitamin D3] cyanocobalamin (vitamin B-12) 1,000 mcg SUBLINGUAL QAM 04/27/20 04/27/20 04/26/20 [Vitamin B-12] duloxetine 60 mg PO QAM 04/27/20 04/27/20 04/26/20 gabapentin 900 mg PO QAM 04/27/20 04/27/20 04/26/20 levetiracetam 2,000 mg PO QPM 04/27/20 04/27/20 04/26/20 levothyroxine 25 mcg PO QAM 04/27/20 04/27/20 04/26/20 magnesium oxide 800 mg PO HS 04/27/20 04/27/20 04/26/20 ropinirole 2 mg PO HS 04/27/20 04/27/20 04/26/20 Active Medications Generic Name Dose Route Start Last Admin Trade Name Matiasq PRN Reason Stop Dose Admin Acetaminophen 650 mg 04/27/20 12:56 05/01/20 23:36 Acetaminophen 325 Mg Tab PO 05/27/20 12:55 650 mg Q4H PRN Administration Moderate Pain Cyanocobalamin 1,000 mcg 04/28/20 09:00 05/02/20 09:21 Cyanocobalamin 500 Mcg Tablet (Vitamin B-12) PO 05/28/20 08:59 1,000 mcg QAM JEREMIAH Administration Duloxetine HCl 60 mg 04/28/20 09:00 05/02/20 09:20 Duloxetine Hcl 60 Mg Cap PO 05/28/20 08:59 60 mg QAM JEREMIAH Administration Enoxaparin Sodium 40 mg 04/28/20 09:00 05/02/20 09:21 Enoxaparin Inj 40 Mg/0.4 Ml Syr SQ 05/28/20 08:59 40 mg QAM JEREMIAH Administration Gabapentin 900 mg 04/28/20 09:00 05/02/20 09:20 Gabapentin 300 Mg Cap PO 05/28/20 08:59 900 mg QAM JEREMIAH Administration Guaifenesin 1,200 mg 04/27/20 21:00 05/02/20 09:21 Guaifenesin 600 Mg Tabcr PO 05/27/20 20:59 Not Given Q12 JEREMIAH Ceftriaxone Sodium 2,000 mg/ 70 mls @ 100 mls/hr 05/01/20 20:00 05/01/20 22:40 Dextrose IV 05/08/20 19:59 Infused Q24H JEREMIAH Infusion Protocol Sodium Chloride 1,000 mls @ 80 mls/hr 05/01/20 18:45 05/02/20 06:52 Nss 1000ml IV 05/31/20 18:44 80 mls/hr .[id number] JEREMIAH Administration Levetiracetam 500 mg 05/01/20 09:00 05/02/20 09:20 Levetiracetam 500 Mg Tab PO 05/31/20 08:59 500 mg BID JEREMIAH Administration Levothyroxine Sodium 25 mcg 04/28/20 06:30 05/02/20 05:39 Levothyroxine Sodium 25 Mcg Tablet PO 05/28/20 06:29 25 mcg DAILYBB JEREMIAH Administration Lidocaine 1 patch 04/27/20 16:30 05/02/20 09:21 Lidocaine 5% 1 Patch TD 05/27/20 16:29 1 patch QAM JEREMIAH Administration Lisinopril 20 mg 05/01/20 09:00 05/02/20 09:20 Lisinopril 20 Mg Tab PO 05/31/20 08:59 20 mg QAM JEREMIAH Administration Magnesium Oxide 800 mg 04/27/20 21:00 05/01/20 20:46 Magnesium Oxide 400 Mg Tab PO 05/27/20 20:59 800 mg HS JEREMIAH Administration Metoprolol Tartrate 25 mg 05/02/20 12:45 05/02/20 14:27 Metoprolol Tartrate 25 Mg Tab PO 06/01/20 12:44 25 mg BID JEREMIAH Administration Miscellaneous 1 ea 04/27/20 21:00 12/01/20 20:47 Remove Lidoderm Patch N/A 05/27/20 20:59 1 ea DAILY@2100 JEREMIAH Administration Oxycodone HCl 5 mg 05/01/20 08:31 05/02/20 09:23 Oxycodone Hcl Ir 5 Mg Tab (Immediate Release) PO 05/15/20 08:30 5 mg Q6H PRN Administration Pain Ropinirole HCl 2 mg 04/27/20 21:00 05/01/20 20:47 Ropinirole Hcl 1 Mg Tablet PO 05/27/20 20:59 2 mg HS JEREMIAH Administration Tramadol HCl 50 mg 04/27/20 13:42 05/02/20 05:38 Tramadol Hcl 50 Mg Tablet PO 05/27/20 13:41 50 mg Q4H PRN Administration Pain Vitamin D 2,000 units 04/28/20 09:00 05/02/20 09:20 Cholecalciferol 1,000 Units 25 Mcg Tab PO 05/28/20 08:59 2,000 units QAM JEREMIAH Administration Past Medical History Medical History Depression HTN (hypertension) Hypothyroidism Lumbar radicular pain Obesity Peripheral neuropathy Restless leg Seizure disorder Past Family History Family History Father , in his 80s pancreatic cancer Cancer Pancreatic cancer Mother , age 58 of bowel obstruction No problems noted. Past Surgical History Surgical History History of carpal tunnel surgery of left wrist History of carpal tunnel surgery of right wrist History of cholecystectomy History of hysterectomy Social History Smoking Status: Never smoker Hx Alcohol Use: No Hx Substance Use: No Physical Exam Vital Signs Last Vital Signs Temp 36.7 C 05/02/20 08:10 Pulse 106 H 05/02/20 11:14 Resp 18 05/02/20 08:10 BP 155/78 H 05/02/20 10:22 Pulse Ox 97 05/02/20 10:22 Testing Laboratory Results 05/02/20 06:34 05/02/20 06:34 Urine Color Yellow 04/27/20 Unknown Urine Appearance Clear (Clear) 04/27/20 Unknown Urine pH 5.5 (4.5-7.5) 04/27/20 Unknown Ur Specific [place] 1.026 (1.000-1.030) 04/27/20 Unknown Urine Protein 1+ (Negative) H 04/27/20 Unknown Urine Glucose (UA) Negative (Negative) 04/27/20 Unknown Urine Ketones Negative (Negative) 04/27/20 Unknown Urine Nitrite Negative (Negative) 04/27/20 Unknown Ur Leukocyte Esterase 1+ (Negative) H 04/27/20 Unknown Urine WBC (Auto) 10-30 /hpf (0-5) H 04/27/20 Unknown Urine RBC (Auto) 0-4 /hpf (0-4) 04/27/20 Unknown U Hyaline Cast (Auto) 1-5 /lpf (0-5) 04/27/20 Unknown U Epithel Cells (Auto) >30 /lpf (0-5) H 04/27/20 Unknown Urine Bacteria (Auto) 1+ (Negative) H 04/27/20 Unknown 04/27/20 11:40 Aerobic Blood Culture - Final Blood No growth in Aerobic bottle after 5 days. Anaerobic Blood Culture - Final No growth in Anaerobic bottle after 5 days. 04/27/20 11:37 Aerobic Blood Culture - Final Blood No growth in Aerobic bottle after 5 days. Anaerobic Blood Culture - Final No growth in Anaerobic bottle after 5 days. 04/27/20 Unknown Urine Culture - Final Urine,Straight Cath No growth - less than 1,000 colonies/mL. Electrocardiogram Date: 04/27/20 Findings: + NSR @ and + NSST changes prolong QT Echocardiogram Date: 05/01/20 EF: 55-60 Other Findings: + LVH and + diastolic dysfunction (Grade 1)
[2020-05-02] MEDS ORDERED: AZITHROMYCIN 250 MG in DEXTROSE 5% 250 ML IV SCH (18:00)
[2020-05-02] MEDS: cefTRIAXone SODIUM 2,000 MG in DEXTROSE 5% 50 ML IV SCH (20:36)
[2020-05-02] MEDS: rOPINIRole HCL 1 MG TABLET PO SCH (21:01)
[2020-05-02] MEDS: MAGNESIUM OXIDE 400 MG TAB PO SCH (21:01)
[2020-05-03] MEDS: traMADol HCL 50 MG TABLET PO PRN ×3 (03:35→20:22)
[2020-05-03] MEDS: oxyCODONE HCL IR 5 MG TAB (IMMEDIATE RELEASE) PO PRN ×2 (05:33→15:43)
[2020-05-03] MEDS: LEVOTHYROXINE SODIUM 25 MCG TABLET PO SCH (05:33)
[2020-05-03] MEDS: SODIUM CHLORIDE 0.9% 1000ML 1,000 ML IV SCH ×2 (05:33→17:43)
[2020-05-03] MEDS: ACETAMINOPHEN 325 MG TAB PO PRN (05:34)
[2020-05-03 07:37] LABS: Basophils # (auto) 0.03 K/uL (0-0.2); Basophils % (auto) 0.3 %; Eosinophils # (auto) 0.05 K/uL (0-0.5); Eosinophils % (auto) 0.4 %; Hematocrit (blood only) 46.4 % (37-47); Hemoglobin 14.6 g/dL (12.0-16.0); Immature Granulocytes # (auto) 0.03 K/uL (0.00-0.02); Immature Granulocytes % (auto) 0.3 %; Lymphocytes # (auto) 0.87 K/uL (1.2-3.4); Lymphocytes % (auto) 7.7 %; Mean Corpuscular Hemoglobin 29.1 pg (25-34); Mean Corpuscular Hgb Conc 31.5 g/dL (32-36); Mean Corpuscular Volume 92.4 fL (80-100); Mean Platelet Volume 10.9 fL (7.4-10.4); Monocytes # (auto) 1.09 K/uL (0.11-0.59); Monocytes % (auto) 9.6 %; Neutrophils # (auto) 9.26 K/uL (1.4-6.5); Neutrophils % (auto) 81.7 %; Platelet Count 262 K/uL (130-400); RDW Coefficient of Variation 14.5 % (11.5-14.5); RDW Standard Deviation 48.6 fL (36.4-46.3); Red Blood Count 5.02 M/uL (4.2-5.4); White Blood Count 11.33 K/uL (4.8-10.8)
[2020-05-03 07:45] LABS: Prothrombin Time 10.9 Seconds (9.0-12.0)
[2020-05-03 08:03] LABS: BUN Creatinine Ratio 25.7 (10-20); Calcium 9.4 mg/dl (8.5-10.1); Creatinine Clr Calc Pharmacy 87.2 ml/min; Est GFR (African American) 92.2; Est GFR (Non-African American) 79.6; Potassium 3.9 mmol/L (3.5-5.1)
[2020-05-03 08:06] LABS: Albumin Globulin Ratio 0.7 (0.9-2); Bilirubin,Total 0.3 mg/dl (0.2-1); C Reactive Protein 1.9 mg/dl (0-0.29); Globulin 4.5 gm/dl (2.5-4.0); Total Protein 7.5 gm/dl (6.4-8.2)
--- NOTE | 2020-05-03 08:31 | Neurology Progress Note ---
Date of Service May 03, 2020 Assessment & Plan (1) Weakness: (2) Seizure disorder: (3) Peripheral neuropathy: (4) Lumbar radicular pain: (5) Depression: (6) UTI (urinary tract infection): (7) HTN (hypertension): The patient has a significant, progressive muscle weakness problem over at least 1 year. It has been much worse in the last month. Her weakness is diffuse, but is clearly proximal greater than distal. The right shoulder may be worse than the left, but it is fairly symmetrical. In addition, the patient has weakness in the neck, tongue, and eyelids. She has been experiencing some double vision and dysphagia. Reflexes are depressed in the arms and absent in legs. There is some sensory loss in a stocking distribution in the feet bilaterally. I see no upper motor neuron signs but a peripheral neuropathy could mask this. Although yesterday, I could not entirely exclude a small stroke, given her exam, MRI of the brain has shown no new stroke. MRI of the cervical spine does not show myelopathy or significant spinal stenosis. Laboratory studies today continue to show an elevated sed rate, white count, and CRP. CK was unremarkable. Because of the weakness, particularly cranial nerve weakness, I doubt this is PMR. Without headache or vision changes, giant cell arteritis is less likely. 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 I cannot exclude myasthenia gravis although this would not typically give pain. She has features to suggest a peripheral neuropathy and I cannot exclude lumbosacral radiculopathy. She has chronic pain and takes gabapentin which is of some help. Reflexes are absent in the legs and depressed in the arms. This could represent a chronic inflammatory polyneuropathy but the course is not consistent with Guillain-Turney syndrome She has a history of UTI but I doubt her clinical picture is consistent with weakness just from this. Besides, she has been treated for several days with antibiotics and her weakness seems to be getting worse. Patient has a history of seizure disorder well controlled with levetiracetam. I note hypertension Which is not adequately controlled. She has depression but claims this is quite controlled with duloxetine. Recommendations: 1. The patient needs an EMG and nerve conduction study, but I cannot do this as an inpatient currently (no equipment for this in the hospital as of now ) -She would have to be transferred to another institution to get this as an inpatient 2. Waiting BRIAN 12 and immunoelectrophoresis. 3. She is scheduled for a right deltoid muscle biopsy this morning. 4. Consider lumbar puncture 5. Consider high-dose steroids after the biopsy 7. I will follow with you. Overall, I spent a total of 40 minutes with this case including review of records, review of MRI films, direct evaluation the patient at bedside, and discussion of the case with the patient at bedside and Bri Martinez PA-C, including differential diagnosis and treatment options. Admission and Anticipated Discharge Date Admission Date: April 30, 2020 Subjective Patient still is weak as she was yesterday. She can move distally in the limbs , but not proximally. nursing seems to report that she can move proximally at times. Nursing reports no new issues. Blood pressure is 181/89. This morning CK was 104, CRP 1.9, sed rate 58, and white count 11.7. Old records revealed that on April 24 a tilt-table test was unremarkable (Kadie). MRI of the brain was remarkable for a few nonspecific scattered old small vessel ischemic changes only. I reviewed these films. MRI of the cervical spine showed multilevel significant spondylosis without significant spinal stenosis or cord issues. I reviewed these films as well. Results & Data ([facility]) Vital Signs (Past 12 Hours) Vital Signs Temp Pulse Resp BP Pulse Ox 05/03/20 08:07 36.6 C 72 19 181/89 H 96 05/03/20 00:19 36.6 C 83 12 148/82 H 97 Exam (Neuro) Physical Exam: She is awake and alert. Speech is weak and she gets short of breath with talking. Neck is weak and cannot lift her head off the pillow. Tongue is midline. Extraocular eye muscles are intact without nystagmus. There is no facial asymmetry. She has 3 to 4-/ 5 strength distally and 2/5 strength proximally in all 4 limbs. PG Care Time/CCT Total # of Minutes Spent Total Time Spent with Patient: Total time spent is greater than 50% in coordination of care (as documented) at patient's floor/unit and/or counseling patient: Coding Level of Care Code 38904 Subseq Hosp Care Lvl 3 Diagnoses Weakness R53.1 Seizure disorder G40.909 Peripheral neuropathy G62.9 Lumbar radicular pain M54.16 Depression F32.9 UTI (urinary tract infection) N39.0 Hematuria presence: without hematuria Urinary tract infection type: site unspecified HTN (hypertension) I10 Hypertension type: unspecified Time Spent (min) 40 (1) UTI (urinary tract infection) Hematuria presence: without hematuria Urinary tract infection type: site unspecified Qualified Code(s): N39.0 - Urinary tract infection, site not specified (2) HTN (hypertension) Hypertension type: unspecified Qualified Code(s): I10 - Essential (primary) hypertension
[2020-05-03] MEDS ORDERED: LIDOCAINE HCL 2% 2 ML VIAL/AMP(20MG/ML) INFIL ONE (09:06)
[2020-05-03] MEDS ORDERED: fentaNYL citrate 100 MCG/2 ML VIAL ONE (09:06)
[2020-05-03] MEDS ORDERED: PROPOFOL IV EMULSION 10 MG/ML 20 ML VIAL IV ONE (09:06)
[2020-05-03] MEDS ORDERED: MIDAZOLAM HCL 1 MG/ML 2ML VIAL ONE (09:06)
[2020-05-03] MEDS: lisinopril 20 MG TAB PO SCH (09:20)
[2020-05-03] MEDS: CYANOCOBALAMIN 500 MCG TABLET (VITAMIN B-12) PO SCH (09:20)
[2020-05-03] MEDS: guaiFENesin 600 MG TABCR PO SCH ×2 (09:20→20:24)
[2020-05-03] MEDS: GABAPENTIN 300 MG CAP PO SCH (09:21)
[2020-05-03] MEDS: levETIRAcetam 500 MG TAB PO SCH ×2 (09:21→20:24)
[2020-05-03] MEDS: METOPROLOL TARTRATE 25 MG TAB PO SCH (09:21)
[2020-05-03] MEDS: CHOLECALCIFEROL 1,000 UNITS 25 MCG TAB PO SCH (09:22)
[2020-05-03] MEDS: DULoxetine HCL 60 MG CAP PO SCH (09:22)
[2020-05-03] MEDS: LIDOCAINE 5% 1 PATCH TD SCH (09:23)
[2020-05-03] MEDS: ENOXAPARIN INJ 40 MG/0.4 ML SYR SQ SCH (09:23)
--- NOTE | 2020-05-03 09:43 | History & Physical Bridge Note ---
Date of Service May 03, 2020 History & Physical Bridge Note I have examined the patient, reviewed the History & Physical and in the interval since the performance of the History & Physical I have noted the following changes of clinical significance: no changes noted Supervising Physician Co-Signing Physician Notes I personally saw and examined the patient. I verified all moreno points and agree with SELENA Hernández with the following exceptions and/or additions: 59 year old female with acute on chronic weakness. No urinary symptoms. Recently discharged from [facility] for UTI but didn't take antibiotic. O/E HS1+2, no murmurs, [place] CTAB, No CVA tenderness A/P Suspect weakness due to UTI - Klebsiella Pneumonia should be covered with Levaquin per sensitivities discussed over the phone with [facility] lab. Will fax copy to ER. PT/OT - likely to need rehab.
[2020-05-03] MEDS ORDERED: ceFAZolin 2000MG 2,000 MG/15 ML SYR IV SCH (09:45)
[2020-05-03] MEDS ORDERED: fentaNYL citrate 100 MCG/2 ML VIAL IV PRN (10:09)
[2020-05-03] MEDS ORDERED: ePHEDrine sulfate 50 MG/ML AMP IV PRN (10:09)
[2020-05-03] MEDS ORDERED: ATROPINE SULFATE 0.1 MG/ML 10ML SYR IV PRN (10:09)
[2020-05-03] MEDS ORDERED: ONDANSETRON INJ 2 MG/ML 2 ML VIAL IV PRN (10:09)
[2020-05-03] MEDS ORDERED: LIDOCAINE HCL 1% 20 ML VIAL ONE (10:21)
[2020-05-03] MEDS ORDERED: BUPIVACAINE 0.5 % 5 MG/1 ML MPF 30ML VIAL ONE (10:21)
[2020-05-03] MEDS ORDERED: hydrALAZINE HCL 20 MG/ML VIAL IV PRN (10:29)
[2020-05-03] MEDS ORDERED: hydrALAZINE HCL 20 MG/ML VIAL IV STA (10:29)
[2020-05-03] MEDS ORDERED: LABETALOL HCL IV 5 MG/ML 20ML IV ONE (10:35)
[2020-05-03 10:39] LABS: Base Excess VBG 1.2 mEq/L; HCO3 VBG 29 mmol/L; PCO2 VBG 60 mmHg (38-50); PO2 VBG 31 mmHg; pH VBG 7.31 (7.36-7.41)
[2020-05-03] MEDS ORDERED: BACITRACIN OINT 15 GM TUBE ONE (10:47)
--- NOTE | 2020-05-03 10:53 | Post Operative Brief Note ---
Immediate Post Op Note v1 Date of Surgery May 03, 2020 Pre & Post Diagnosis Operation Date: 05/03/20 12:10 Pre-Op Diagnosis: UTI, PNEUMONIA, WEAKNESS Post-Op Diagnosis: UTI, PNEUMONIA, WEAKNESS I identified the patient and participated in the time-out.: Yes Procedure Operation Date: 05/03/20 12:10 Actual Procedures p Right Arm Deltoid Muscle Biopsy(Right) - Aaliyah Garcia MD Surgeon Aaliyah Garcia MD Materials Scheduler surgical services asst Estimated Blood Loss 5 Findings Consistent with Post-Op Diagnosis Fluids 300ml Specimens right arm deltoid muscle Anesthesia Type Local Complications none Disposition Accompanied Patient To Recovery: Yes Disposition: Recovery Room Overlapping Procedure I was immediately available: during the entire case.
[2020-05-03 11:19] LABS: Oxygen Saturation VBG < 60.0 %
--- NOTE | 2020-05-03 11:30 | Hospitalist Progress Note ---
Date of Service May 03, 2020 Assessment & Plan (1) Weakness: * PT/OT consults for profound progressive weakness over the past 2 days, s/p fall/slip from off the toilet --> rec rehab. Ref sent for K[facility] Garcia * Procal, ferritin, LDH wnl * CK was 352 on admission and given IVF with repeat wnl Neurology consulted today * CT Head negative * Patient has pain AND weakness though, concerning for inflammatory myopathy vs PMR vs myasthenia * MRI Brain/Cervical Spine ordered * Repeat CK wnl * CRP 2.97 (4.21), ESR 54 (27) -- Received outpatient records from rheumatology who was going to treat patient for PMR with proximal muscle weakness * Added SPEP, myasthenia labs, BRIAN 12, aldolase, acetylcholine labs * General Surgery consulted for muscle biopsy -- performed this morning * --> follow pathology * Started prednisone 60mg PO and will continue * Plans for LP this afternoon to rule out other causes --> follow CSF Will need outpatient EMG vs inpatient if above unrevealing Ortho spine consulted ECHO without vegetation * BCx NGTD Continues to be afebrile * Lyme negative * *Keppra level ELEVATED at 51.8 -- decreased keppra to 500mg BID . will need repeat level outpt (2) UTI (urinary tract infection): * ->100,000 Klebsiella pneumonia 8 colonies growing, resistant to ampicillin, nitrofurantoin, tetracycline - fax being sent from [facility] for chart, confirmed over the phone. * Cr elevated with KAYLIE on admission, Cr 1.38. Resolved with IVF to 0.93 * IV Levaquin completed course * UC no growth, bc ngtd * Patient denies hematuria, dysuria, increase in frequency, no cva tenderness on exam so unlikely to be pyelonephritis (3) Pneumonia: * Possible as per CXR-- R basilar parenchymal opacities, statistically atelectatic although infectious/inflammatory could appear similar * COVID negative. Biofire negative * Afebrile, no WBC, procal wnl on admission but repeat 0.05 * Switched to Ceftriaxone/Azithromycin last evening for broaded coverage any hypoxia with O2 sat 86% on RA, currently 98% on 2L * Nebs prn sob/wheezing * Tylenol prn * ABG with CO2 retention - discussed weaning with RN. Patient did have O2 drop following anethesia from muscle biopsy and was placed back on, but while patient awake was able to maintain >90% on RA * Wean as tolerated * See above (4) HTN (hypertension): * No hx of such, BP significantly elevated here * Pt reports pain in back as primary issues as well as the R shoulder blade region - this may be related to possible pneumonia. * Increased lisinopril to 20mg today -- BP 142/87. Titrate as needed. Consider addition of BB * Hydralazine prn (5) Hypothyroidism: * TSH 2.210 * Continue levothyroxine 25 mcg daily (6) Seizure disorder: * Last seizure like activity was approximately 3 years ago per patient, spent 1 week in continuous EEG unit at that time without findings other than one abnormal EEG. Follows with Dr. 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 Andres * Neuro consult as above for tomorrow morning (7) Obesity (BMI 30-39.9): * BMI of 39.7, diet encouraged with poor ability to exercise (8) Restless leg: * May continue requip 2 mg po HS (9) Peripheral neuropathy: * Cont gabapentin mg qam, cymbalta 60 mg qam * Bilateral up to level of mid-crystal on exam * B12 elevated, folate wnl * If continued pain persists, consider consulting pain management as recent switch from IV Dilaudid to PO agents given weakness/lethargy (10) Hypertension: * Uncontrolled * Hydralazine prn * Not on any medications at home * BPs elevated during admission and started on metoprolol 25mg BID with slight improvement but continues to be elevated * Will increase to 50mg BID and continue to monitor * Currently 176/92 following LP (11) Vitamin D deficiency: * Cont supplementation Sepsis -secondary to UTI/pneumonia/inflammatory myopathy -Tachycardic with lactic >2 with repeat normal after 500cc NSS evening 12 DVT proph: * joceline gutierrez (held for LP although did get this mornign) Dispo: LP pending Admission and Anticipated Discharge Date Admission Date: April 30, 2020 Subjective Patient evaluated this afternoon following her muscle biopsy. Drowsy, but denies any pain at this time. Would like placed on side for comfort. Discussed obtaining LP given confusion this morning. Patient able to state year, month (initially April then smiled and stated May), and president. Able to tell me where she was at. Still with significant weakness globally, but moreso in proximal muscle groups and ability to move extremities. Discussed starting steroids now that biopsy done and hopefully will have some improvement in next day or two. If all unrevealing, discussed we may need to transfer for inpatient EMG testing as this cannot be done at this facility. Still has shortness of breath with talking, but when asked she denies this. Updated daughter Lena on the phone x 2. Review of Systems Review of Systems: All systems reviewed & are unremarkable except as noted in HPI & below Physical Exam Constitutional: well developed, well nourished and + obese Eyes: + anicteric sclerae and PERRL ENMT: Ears: no hearing impairment Neck: normal visual inspection Respiratory: normal respiratory effort; no labored breathing and + not able to speak in complete sentence (fatigues easily with speaking) Auscultation: + diminished lung sounds (throughout); no wheezes Cardiovascular: Rate/Rhythm: regular rate and regular rhythm Heart Sounds: no murmur Vessels: no JVD (unable to assess due to body habitus) Gastrointestinal (Abdomen): normal bowel sounds, soft, nontender, no hepatosplenomegaly Musculoskeletal: Head/Neck/Chest: normocephalic and head atraumatic Neurologic: She has 3 to 4-/ 5 strength distally and 2/5 strength proximally in all 4 limbs. Psychiatric: Orientation: alert and oriented x 3 Results & Data Results & Data ([facility]) Vital Signs (Past 12 Hours) Vital Signs Temp Pulse Pulse Resp BP Pulse Ox 05/03/20 11:25 73 22 138/80 100 05/03/20 11:15 72 18 126/75 99 05/03/20 11:05 36.6 C 76 20 150/90 H 100 05/03/20 10:07 36.8 C 110 H 18 225/134 H 100 05/03/20 08:07 36.6 C 72 19 181/89 H 96 05/03/20 00:19 36.6 C 83 12 148/82 H 97 Laboratory Results 05/03/20 05/03/20 05/03/20 Range/Units 14:15 14:15 14:15 WBC (4.8-10.8) K/uL RBC (4.2-5.4) M/uL Hgb (12.0-16.0) g/dL Hct (37-47) % MCV (80-100) fL MCH (25-34) pg MCHC (32-36) g/dL RDW Std Deviation (36.4-46.3) fL RDW Coeff of Darin (11.5-14.5) % Plt Count (130-400) K/uL MPV (7.4-10.4) fL Immature Gran % (Auto) % Neut % (Auto) % Lymph % (Auto) % Jay % (Auto) % Eos % (Auto) % Baso % (Auto) % Neut # (Auto) (1.4-6.5) K/uL Lymph # (Auto) (1.2-3.4) K/uL Jay # (Auto) (0.11-0.59) K/uL Eos # (Auto) (0-0.5) K/uL Baso # (Auto) (0-0.2) K/uL Immature Gran # (Auto) (0.00-0.02) K/uL ESR (0-21) mm/hr PT (9.0-12.0) Seconds INR (0.9-1.1) VBG pH (7.36-7.41) VBG pCO2 (38-50) mmHg VBG pO2 mmHg VBG HCO3 mmol/L VBG O2 Saturation % VBG Base Excess mEq/L Barometric Pressure mm/Hg Sodium (136-145) mmol/L Potassium (3.5-5.1) mmol/L Chloride (98-107) mmol/L Carbon Dioxide (21-32) mmol/L Anion Gap (3-11) BUN (7-18) mg/dl Creatinine (0.6-1.2) mg/dl Est Cr Clr Drug Dosing ml/min Est GFR ( Amer) Est GFR (Non-Af Amer) BUN/Creatinine Ratio (10-20) Glucose (70-99) mg/dl Calcium (8.5-10.1) mg/dl Total Bilirubin (0.2-1) mg/dl AST (15-37) U/L ALT (12-78) U/L Alkaline Phosphatase (45-117) U/L C-Reactive Protein (0-0.29) mg/dl Total Protein (6.4-8.2) gm/dl Albumin (3.4-5.0) gm/dl Globulin (2.5-4.0) gm/dl Albumin/Globulin Ratio (0.9-2) Fld Lyme DNA (PCR) Pending CSF Appearance Clear CSF Color Colorless Xanthrochromic No xanthochromia CSF WBC 4 (0-5) /uL CSF RBC 32 (0-) /uL CSF Cell Count Tube # 3 CSF Mononuclear WBCs % % CSF Chemistry Tube # 1 CSF Glucose 64 (40-70) mg/dl CSF Lactate 1.9 (0.6-2.2) mmol/L CSF Total Protein 111.6 H (15-45) mg/dl CSF C.neoform/gat PCR Pending CSF CMV DNA (PCR) Pending CSF Enterovirus (PCR) Pending CSF E. coli K1 (PCR) Pending CSF H. influenzae (PCR) Pending CSF HSV I (PCR) Pending CSF HSV II (PCR) Pending CSF HHV 6 (PCR) Pending CSF L.monocytogenes PCR Pending CSF N. meningitidis PCR Pending CSF Parechovirus (PCR) Pending CSF S. agalactiae (PCR) Pending CSF S. pneumoniae (PCR) Pending CSF VZV DNA (PCR) Pending Serum Immunofixation Lyme Specimen Source Pending 05/03/20 05/03/20 05/03/20 Range/Units 10:11 06:57 06:57 WBC (4.8-10.8) K/uL RBC (4.2-5.4) M/uL Hgb (12.0-16.0) g/dL Hct (37-47) % MCV (80-100) fL MCH (25-34) pg MCHC (32-36) g/dL RDW Std Deviation (36.4-46.3) fL RDW Coeff of Darin (11.5-14.5) % Plt Count (130-400) K/uL MPV (7.4-10.4) fL Immature Gran % (Auto) % Neut % (Auto) % Lymph % (Auto) % Jay % (Auto) % Eos % (Auto) % Baso % (Auto) % Neut # (Auto) (1.4-6.5) K/uL Lymph # (Auto) (1.2-3.4) K/uL Jay # (Auto) (0.11-0.59) K/uL Eos # (Auto) (0-0.5) K/uL Baso # (Auto) (0-0.2) K/uL Immature Gran # (Auto) (0.00-0.02) K/uL ESR (0-21) mm/hr PT 10.9 (9.0-12.0) Seconds INR 1.0 (0.9-1.1) VBG pH 7.31 L (7.36-7.41) VBG pCO2 60 H (38-50) mmHg VBG pO2 31 mmHg VBG HCO3 29 mmol/L VBG O2 Saturation < 60.0 % VBG Base Excess 1.2 mEq/L Barometric Pressure 739.4 mm/Hg Sodium 140 (136-145) mmol/L Potassium 3.9 (3.5-5.1) mmol/L Chloride 105 (98-107) mmol/L Carbon Dioxide 31 (21-32) mmol/L Anion Gap 4.0 (3-11) BUN 21 H (7-18) mg/dl Creatinine 0.80 (0.6-1.2) mg/dl Est Cr Clr Drug Dosing 87.2 ml/min Est GFR ( Amer) 92.2 Est GFR (Non-Af Amer) 79.6 BUN/Creatinine Ratio 25.7 H (10-20) Glucose 90 (70-99) mg/dl Calcium 9.4 (8.5-10.1) mg/dl Total Bilirubin 0.3 (0.2-1) mg/dl AST 27 (15-37) U/L ALT 24 (12-78) U/L Alkaline Phosphatase 111 (45-117) U/L C-Reactive Protein 1.90 H (0-0.29) mg/dl Total Protein 7.5 (6.4-8.2) gm/dl Albumin 3.0 L (3.4-5.0) gm/dl Globulin 4.5 H (2.5-4.0) gm/dl Albumin/Globulin Ratio 0.7 L (0.9-2) Fld Lyme DNA (PCR) CSF Appearance CSF Color Xanthrochromic CSF WBC (0-5) /uL CSF RBC (0-) /uL CSF Cell Count Tube # CSF Mononuclear WBCs % % CSF Chemistry Tube # CSF Glucose (40-70) mg/dl CSF Lactate (0.6-2.2) mmol/L CSF Total Protein (15-45) mg/dl CSF C.neoform/gat PCR CSF CMV DNA (PCR) CSF Enterovirus (PCR) CSF E. coli K1 (PCR) CSF H. influenzae (PCR) CSF HSV I (PCR) CSF HSV II (PCR) CSF HHV 6 (PCR) CSF L.monocytogenes PCR CSF N. meningitidis PCR CSF Parechovirus (PCR) CSF S. agalactiae (PCR) CSF S. pneumoniae (PCR) CSF VZV DNA (PCR) Serum Immunofixation Lyme Specimen Source 05/03/20 05/03/20 05/03/20 Range/Units 06:57 06:57 06:57 WBC 11.33 H (4.8-10.8) K/uL RBC 5.02 (4.2-5.4) M/uL Hgb 14.6 (12.0-16.0) g/dL Hct 46.4 (37-47) % MCV 92.4 (80-100) fL MCH 29.1 (25-34) pg MCHC 31.5 L (32-36) g/dL RDW Std Deviation 48.6 H (36.4-46.3) fL RDW Coeff of Darin 14.5 (11.5-14.5) % Plt Count 262 (130-400) K/uL MPV 10.9 H (7.4-10.4) fL Immature Gran % (Auto) 0.3 % Neut % (Auto) 81.7 % Lymph % (Auto) 7.7 % Jay % (Auto) 9.6 % Eos % (Auto) 0.4 % Baso % (Auto) 0.3 % Neut # (Auto) 9.26 H (1.4-6.5) K/uL Lymph # (Auto) 0.87 L (1.2-3.4) K/uL Jay # (Auto) 1.09 H (0.11-0.59) K/uL Eos # (Auto) 0.05 (0-0.5) K/uL Baso # (Auto) 0.03 (0-0.2) K/uL Immature Gran # (Auto) 0.03 H (0.00-0.02) K/uL ESR 58 H (0-21) mm/hr PT (9.0-12.0) Seconds INR (0.9-1.1) VBG pH (7.36-7.41) VBG pCO2 (38-50) mmHg VBG pO2 mmHg VBG HCO3 mmol/L VBG O2 Saturation % VBG Base Excess mEq/L Barometric Pressure mm/Hg Sodium (136-145) mmol/L Potassium (3.5-5.1) mmol/L Chloride (98-107) mmol/L Carbon Dioxide (21-32) mmol/L Anion Gap (3-11) BUN (7-18) mg/dl Creatinine (0.6-1.2) mg/dl Est Cr Clr Drug Dosing ml/min Est GFR ( Amer) Est GFR (Non-Af Amer) BUN/Creatinine Ratio (10-20) Glucose (70-99) mg/dl Calcium (8.5-10.1) mg/dl Total Bilirubin (0.2-1) mg/dl AST (15-37) U/L ALT (12-78) U/L Alkaline Phosphatase (45-117) U/L C-Reactive Protein (0-0.29) mg/dl Total Protein (6.4-8.2) gm/dl Albumin (3.4-5.0) gm/dl Globulin (2.5-4.0) gm/dl Albumin/Globulin Ratio (0.9-2) Fld Lyme DNA (PCR) CSF Appearance CSF Color Xanthrochromic CSF WBC (0-5) /uL CSF RBC (0-) /uL CSF Cell Count Tube # CSF Mononuclear WBCs % % CSF Chemistry Tube # CSF Glucose (40-70) mg/dl CSF Lactate (0.6-2.2) mmol/L CSF Total Protein (15-45) mg/dl CSF C.neoform/gat PCR CSF CMV DNA (PCR) CSF Enterovirus (PCR) CSF E. coli K1 (PCR) CSF H. influenzae (PCR) CSF HSV I (PCR) CSF HSV II (PCR) CSF HHV 6 (PCR) CSF L.monocytogenes PCR CSF N. meningitidis PCR CSF Parechovirus (PCR) CSF S. agalactiae (PCR) CSF S. pneumoniae (PCR) CSF VZV DNA (PCR) Serum Immunofixation Pending Lyme Specimen Source Diagnostic Findings LP IMPRESSION: Fluoroscopic guided lumbar puncture with removal of approximately 10 cc of cerebrospinal fluid. There were no immediate complications. PG Care Time/CCT Total # of Minutes Spent Total Time Spent with Patient: Total time spent is greater than 50% in coordination of care (as documented) at patient's floor/unit and/or counseling patient: Coding Level of Care Code 61491 Subseq Hosp Care Lvl 3 Diagnoses Weakness R53.1 UTI (urinary tract infection) N39.0 Hematuria presence: without hematuria Urinary tract infection type: site unspecified Pneumonia J18.9 Laterality: unspecified laterality Lung location: unspecified part of lung Pneumonia type: due to unspecified organism HTN (hypertension) I10 Hypertension type: unspecified Hypothyroidism E03.9 Seizure disorder G40.909 Obesity (BMI 30-39.9) E66.9 Restless leg G25.81 Peripheral neuropathy G62.9 Hypertension I10 Vitamin D deficiency E55.9 (1) UTI (urinary tract infection) Hematuria presence: without hematuria Urinary tract infection type: site unspecified Qualified Code(s): N39.0 - Urinary tract infection, site not specified (2) Pneumonia Laterality: unspecified laterality Lung location: unspecified part of lung Pneumonia type: due to unspecified organism Qualified Code(s): J18.9 - Pneumonia, unspecified organism (3) HTN (hypertension) Hypertension type: unspecified Qualified Code(s): I10 - Essential (primary) hypertension
--- NOTE | 2020-05-03 13:09 | Operative Report (OR) ---
DATE OF OPERATION: 05/03/2020 PREOPERATIVE DIAGNOSIS: Weakness on bilateral legs and arms. POSTOPERATIVE DIAGNOSIS: Weakness on bilateral legs and arms. PROCEDURE: Biopsy, right arm deltoid muscle. SURGEON: Aaliyah Garcia MD. ANESTHESIA: Conscious sedation plus local. ESTIMATED BLOOD LOSS: About 5 mL. FINDINGS: Edema on the muscle. COMPLICATIONS: None. INDICATIONS FOR THE PROCEDURE: This is a 59-year-old female who was admitted to hospital for weakness and the doctor required to do the right arm deltoid muscle biopsy. I did talk to the patient about the benefit, the risk, alternate procedure. I indicated the risks may include but not limited such as bleeding, infection, hematoma. The patient understands all injury to the nerves, and she verbalized understanding to the nurse at the bedside. She agreed to proceed with procedure. I answered all questions. DETAILS OF PROCEDURE: We brought the patient to the OR, put the patient in the supine position. The patient received SCD on bilateral legs to prevent DVT. Also, patient received 2 grams of Ancef IV for prophylactic antibiotic. The patient received conscious sedation by the Anesthesiology. The right side of arm was prepped and draped in routine sterile fashion. After timeout, I injected the local anesthesia by using 1% lidocaine mixed with 0.5% Marcaine around the right side of the upper arm and made about a 2 cm incision on the right side of upper arm. Dissection of subcutaneous layer, reached the fascial layer, opened the fascial layer, and reached the deltoid muscle. Then I mobilized the muscle, ligated two sides of the muscle by using 0 Vicryl. I took about 1 cm length x 0.5 cm muscle, sent to pathology. Hemostat was obtained, now closed the fascial layer by using 0 Vicryl interrupted and closed subcutaneous layer by using 2-0 Vicryl interrupted and closed skin by using 4-0 Vicryl continuous running. Then we put the dressing on. The patient tolerated the procedure well. All instrument, needle and sponge count were correct x2 at the end of the case. The patient transferred to recovery room in stable condition. The specimen sent to pathology. I attest to the content of the Intraoperative Record and any orders documented therein. Any exception s are noted below.
--- NOTE | 2020-05-03 14:27 | Fluoroscopy Report ---
FLUOROSCOPIC GUIDED LUMBAR PUNCTURE CLINICAL HISTORY: Change in mental status. Generalized weakness.. PROCEDURE: The risks, benefits, and alternatives to the procedure is discussed with the patient's lyndon ghter who provided witnessed informed consent via telephone. The patient was placed prone on the fluo roscopy table. The lower back was prepped and draped in the usual sterile fashion. 1% lidocaine was u sed for local anesthesia. A 20-gauge spinal needle was inserted into the L3-L4 interlaminar space, an d approximately 10 cc of clear colorless cerebrospinal fluid was removed. A single spot fluoroscopic image was saved. The patient tolerated the procedure well. There were no immediate complications. The patient was then returned to the medical floor for further observation. Fluoroscopy time: 0.3 minutes IMPRESSION: Fluoroscopic guided lumbar puncture with removal of approximately 10 cc of cerebrospinal fluid. There were no immediate complications. ACT 112: Negative or not required by law. Electronically signed by: Juan Blue M.D. 05/03/2020 2:26 PM
[2020-05-03 14:49] LABS: Appearance CSF Clear; CSF Count Tube # 3; Color CSF Colorless
[2020-05-03 14:50] LABS: CSF Xanthrochromic No xanthochromia; Red Blood Cell CSF (A) 32 /uL (0-); Red Blood Cell CSF (B) 40 /uL (0-); White Blood Cell CSF (A) 4 /uL (0-5); White Blood Cell CSF (B) 2 /uL (0-5)
[2020-05-03 14:54] LABS: CSF Glucose 64 mg/dl (40-70)
[2020-05-03 14:55] LABS: CSF Chemistry Tube # 1
[2020-05-03 15:00] LABS: Lactate CSF 1.9 mmol/L (0.6-2.2); Total Protein CSF 111.6 mg/dl (15-45)
--- NOTE | 2020-05-03 15:14 | Anesthesiology Progress Note ---
Date of Service May 03, 2020 Anesthesia Post Procedure Vital Signs Vital Signs: Temp Pulse Pulse Resp BP BP Pulse Ox 05/03/20 12:39 36.4 C L 73 14 140/69 99 05/03/20 12:20 69 20 118/79 98 05/03/20 12:15 70 18 121/79 97 05/03/20 12:05 36.4 C L 73 20 143/79 H 97 05/03/20 11:55 70 18 156/91 H 98 05/03/20 11:45 67 16 125/76 95 05/03/20 11:35 70 18 123/92 100 05/03/20 11:25 73 22 138/80 100 05/03/20 11:15 72 18 126/75 99 05/03/20 11:05 36.6 C 76 20 150/90 H 100 05/03/20 10:07 36.8 C 110 H 18 225/134 H 100 05/03/20 08:07 36.6 C 72 19 181/89 H 96 05/03/20 00:19 36.6 C 83 12 148/82 H 97 05/02/20 20:15 36.5 C 87 16 155/80 H 99 Pain Intensity Generalized: Pain Intensity: 10 Back: Pain Intensity: 5 Transfer of Care Handoff Completed per policy Notes Mental Status: alert / awake / arousable and participated in evaluation Nausea / Vomiting: adequately controlled Pain: adequately controlled Airway Patency, RR, SpO2: stable & adequate BP & HR: stable & adequate Hydration State: stable & adequate Anesthetic Complications: no major complications apparent and Pt Satisfied with anesthetic care Notes: Continuous pulse oximetry ordered for overnight due to sedation for procedure in the setting of profound generalized weakness. Patient doing well in PACU and ok to send to floor with pulse oximetry.
[2020-05-03] MEDS: predniSONE 20 MG TAB PO SCH (15:37)
[2020-05-03 15:57] LABS: Cryptococcus neoformans/ga PCR Not Detected (NotDetected); Cytomegalovirus PCR Not Detected (NotDetected); Enterovirus PCR Not Detected (NotDetected); Escherichia coli K1 PCR Not Detected (NotDetected); Haemophilius influenzae PCR Not Detected (NotDetected); Herpes Simplex Virus 1 PCR Not Detected (NotDetected); Herpes Simplex Virus 2 PCR Not Detected (NotDetected); Human Herpes Virus 6 PCR Not Detected (NotDetected); Human Parechovirus PCR Not Detected (NotDetected); Listeria monocytogenes PCR Not Detected (NotDetected); Neisseria meningitidis PCR Not Detected (NotDetected); Streptococcus agalactiae PCR Not Detected (NotDetected); Streptococcus pneumoniae PCR Not Detected (NotDetected); Varicella Zoster Virus PCR Not Detected (NotDetected)
[2020-05-03] MEDS ORDERED: AZITHROMYCIN 250 MG TAB PO ONE (17:15)
[2020-05-03] MEDS: METOPROLOL TARTRATE 50 MG TAB PO SCH (18:00)
[2020-05-03] MEDS: MAGNESIUM OXIDE 400 MG TAB PO SCH (20:23)
[2020-05-03] MEDS: rOPINIRole HCL 1 MG TABLET PO SCH (20:25)
[2020-05-03] MEDS: CEFDINIR 300 MG CAP PO SCH (21:06)
[2020-05-04] MEDS: METOPROLOL TARTRATE 50 MG TAB PO SCH ×2 (00:28→08:26)
[2020-05-04] MEDS: LEVOTHYROXINE SODIUM 25 MCG TABLET PO SCH (06:01)
[2020-05-04 07:14] LABS: Basophils # (auto) 0.02 K/uL (0-0.2); Basophils % (auto) 0.1 %; Eosinophils # (auto) 0.01 K/uL (0-0.5); Eosinophils % (auto) 0.1 %; Hematocrit (blood only) 49.6 % (37-47); Hemoglobin 15.8 g/dL (12.0-16.0); Immature Granulocytes # (auto) 0.04 K/uL (0.00-0.02); Immature Granulocytes % (auto) 0.3 %; Lymphocytes # (auto) 1.18 K/uL (1.2-3.4); Lymphocytes % (auto) 8.7 %; Mean Corpuscular Hemoglobin 29.3 pg (25-34); Mean Corpuscular Hgb Conc 31.9 g/dL (32-36); Mean Corpuscular Volume 91.9 fL (80-100); Mean Platelet Volume 11.3 fL (7.4-10.4); Monocytes # (auto) 1.07 K/uL (0.11-0.59); Monocytes % (auto) 7.9 %; Neutrophils % (auto) 82.9 %; Platelet Count 349 K/uL (130-400); RDW Coefficient of Variation 14.3 % (11.5-14.5); RDW Standard Deviation 47.8 fL (36.4-46.3); White Blood Count 13.62 K/uL (4.8-10.8)
[2020-05-04 07:37] LABS: Albumin Level 3.3 gm/dl (3.4-5.0); BUN Creatinine Ratio 31.7 (10-20); C Reactive Protein 1.8 mg/dl (0-0.29); Creatinine Clr Calc Pharmacy 86.1 ml/min; Est GFR (African American) 90.9; Est GFR (Non-African American) 78.4
[2020-05-04 07:39] LABS: Albumin Globulin Ratio 0.7 (0.9-2); Bilirubin,Total 0.4 mg/dl (0.2-1); Globulin 4.6 gm/dl (2.5-4.0); Total Protein 7.9 gm/dl (6.4-8.2)
[2020-05-04] MEDS: levETIRAcetam 500 MG TAB PO SCH ×2 (08:25→20:16)
[2020-05-04] MEDS: predniSONE 20 MG TAB PO SCH (08:25)
[2020-05-04] MEDS: lisinopril 20 MG TAB PO SCH (08:25)
[2020-05-04] MEDS: DULoxetine HCL 60 MG CAP PO SCH (08:25)
[2020-05-04] MEDS: GABAPENTIN 300 MG CAP PO SCH (08:26)
[2020-05-04] MEDS: CYANOCOBALAMIN 500 MCG TABLET (VITAMIN B-12) PO SCH (08:26)
[2020-05-04] MEDS: CHOLECALCIFEROL 1,000 UNITS 25 MCG TAB PO SCH (08:26)
[2020-05-04] MEDS: CEFDINIR 300 MG CAP PO SCH ×2 (08:26→20:15)
[2020-05-04] MEDS: guaiFENesin 600 MG TABCR PO SCH ×2 (08:27→20:15)
[2020-05-04] MEDS: LIDOCAINE 5% 1 PATCH TD SCH (08:27)
[2020-05-04] MEDS: oxyCODONE HCL IR 5 MG TAB (IMMEDIATE RELEASE) PO PRN ×3 (08:38→23:29)
--- NOTE | 2020-05-04 09:05 | Anesthesiology Progress Note ---
Date of Service May 04, 2020 Anesthesia Post Procedure Vital Signs Vital Signs: Temp Pulse Pulse Resp BP BP Pulse Ox 05/04/20 08:15 36.4 C L 79 14 167/79 H 97 05/04/20 02:44 36.6 C 88 14 165/82 H 92 05/04/20 01:22 71 158/95 H 05/03/20 23:41 36.5 C 60 14 180/92 H 91 05/03/20 21:14 92 05/03/20 21:11 86 L 05/03/20 20:21 60 18 178/88 H 94 05/03/20 19:35 36.5 C 71 16 186/82 H 95 05/03/20 15:43 98 05/03/20 15:42 67 16 176/92 H 78 L 05/03/20 12:39 36.4 C L 73 14 140/69 99 05/03/20 12:20 69 20 118/79 98 05/03/20 12:15 70 18 121/79 97 05/03/20 12:05 36.4 C L 73 20 143/79 H 97 05/03/20 11:55 70 18 156/91 H 98 05/03/20 11:45 67 16 125/76 95 05/03/20 11:35 70 18 123/92 100 05/03/20 11:25 73 22 138/80 100 05/03/20 11:15 72 18 126/75 99 05/03/20 11:05 36.6 C 76 20 150/90 H 100 05/03/20 10:07 36.8 C 110 H 18 225/134 H 100 Pain Intensity Generalized: Pain Intensity: 10 Back: Pain Intensity: 10 Notes Mental Status: alert / awake / arousable Patient Amnestic to Procedure: Yes Nausea / Vomiting: adequately controlled Pain: adequately controlled Airway Patency, RR, SpO2: stable & adequate BP & HR: stable & adequate Hydration State: stable & adequate Anesthetic Complications: no major complications apparent Notes: Patient very satisfied. Did not have any complaint or complicaion.
--- NOTE | 2020-05-04 09:06 | Neurology Progress Note ---
Date of Service May 04, 2020 Assessment & Plan (1) Weakness: (2) Seizure disorder: (3) Peripheral neuropathy: (4) Lumbar radicular pain: (5) Depression: (6) Hypertension: The patient has a significant, progressive muscle weakness problem over at least 1 year. It has been much worse in the last month. Her weakness is diffuse, but is clearly proximal greater than distal. The right shoulder may be worse than the left, but it is fairly symmetrical. In addition, the patient has weakness in the neck, tongue, and eyelids. She has been experiencing some double vision and dysphagia. Reflexes are depressed in the arms and absent in legs. There is some sensory loss in a stocking distribution in the feet bilaterally. I see no upper motor neuron signs but a peripheral neuropathy could mask this. MRI of the brain has shown no new stroke. MRI of the cervical spine does not show myelopathy or significant spinal stenosis. Laboratory studies today continue to show an elevated sed rate, white count, and CRP. CK was unremarkable. Because of the weakness, particularly cranial nerve weakness, I doubt this is PMR. Without headache or vision changes, giant cell arteritis is less likely. 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 I cannot exclude myasthenia gravis although this would not typically give pain. acetylcholine receptor antibody titers are still pending. BRIAN profile is pending as She has features to suggest a peripheral neuropathy and I cannot exclude lumbosacral radiculopathy. She has chronic pain and takes gabapentin which is of some help. Reflexes are absent in the legs and depressed in the arms. This could represent a chronic inflammatory polyneuropathy but the course is not consistent with Guillain-Livermore syndrome. She has elevated protein in her CSF without signs of infection. elevated CSF protein can occur in other immune related conditions creating. She has a history of UTI but I doubt her clinical picture is consistent with weakness just from this. Besides, she has been treated for several days with antibiotics and her weakness seems to be getting worse. Patient has a history of seizure disorder well controlled with levetiracetam. I note hypertension Which is not adequately controlled. She has depression but claims this is quite controlled with duloxetine. Recommendations: 1. The patient needs an EMG and nerve conduction study, but I cannot do this as an inpatient currently (no equipment for this in the hospital as of now ) -She would have to be transferred to another institution to get this as an inpatient 2. Waiting BRIAN 12 and immunoelectrophoresis. 3. Initiating high-dose steroids. a significant percentage polymyositis patients do not respond to steroids and may need alternative treatments (such as IVIG or other) 4. If the patient is not making significant improvement in the next 48 hours or so, we may need to transfer to a higher care center for further evaluation treatment 5. could consider additional antibody testing such as anti -Jo1, anti POWER SAW MECH[employer]IC, anti synthetase, or others. Paraneoplastic syndrome is possible but there is no other evidence for this, at this time 6. Unfortunately it could take 1-3 weeks for the muscle biopsy results to return. Overall, I spent a total of 40 minutes with this case including review of records, review of MRI films, direct evaluation the patient at bedside, and discussion of the case with the patient at bedside patricia ayala pathology, and Bri Martinez PA-C, including differential diagnosis and treatment options. Admission and Anticipated Discharge Date Admission Date: April 30, 2020 Subjective Patient still feels weak. She underwent a successful muscle biopsy yesterday. I checked with pathology and the muscle biopsy is a send out test , and results probably will not be back for week. She is having some trouble swallowing but is eating. She has no double vision issues. Her weakness is still the same. Today ESR is 61 and CBC shows a white count of 13.6. C reactive protein is 1.8. On May 01, echocardiogram was unremarkable. Lumbar puncture yesterday revealed a protein of 111 with a glucose of 64 and 4 white cells. It was clear and colorless. Gram stain was negative. Results & Data ([facility]) Vital Signs (Past 12 Hours) Vital Signs Temp Pulse Pulse Resp BP BP Pulse Ox 05/04/20 08:15 36.4 C L 79 14 167/79 H 97 05/04/20 02:44 36.6 C 88 14 165/82 H 92 05/04/20 01:22 71 158/95 H 05/03/20 23:41 36.5 C 60 14 180/92 H 91 05/03/20 21:14 92 05/03/20 21:11 86 L Exam (Neuro) Physical Exam: She is awake and alert. Speech is without aphasia or dysarthria. Extraocular eye muscles are intact without nystagmus. There is no facial droop. Tongue is midline. Neck and tongue her week. She can move distally some in the limbs but not proximally. PG Care Time/CCT Total # of Minutes Spent Total Time Spent with Patient: Total time spent is greater than 50% in coordination of care (as documented) at patient's floor/unit and/or counseling patient: Coding Level of Care Code 20480 Subseq Hosp Care Lvl 3 Diagnoses Weakness R53.1 Seizure disorder G40.909 Peripheral neuropathy G62.9 Lumbar radicular pain M54.16 Depression F32.9 Hypertension I10 Time Spent (min) 40
--- NOTE | 2020-05-04 09:08 | Hospitalist Progress Note ---
Date of Service May 04, 2020 Assessment & Plan (1) Weakness: * PT/OT consults for profound progressive weakness over the past 2 days, s/p fall/slip from off the toilet --> rec rehab. Ref sent for Koko Garcia * Procal, ferritin, LDH wnl * CK was 352 on admission and given IVF with repeat wnl * ECHO without vegetation * Lyme negative * Keppra level elevated 51.8 and keppra was decreased to 500mg BID -- will need repeat lvl outpt * Urine Cx negative * BCx NO GROWTH- final * Neurology consulted * CT Head negative * Patient has pain AND weakness though, concerning for inflammatory myopathy vs PMR vs myasthenia * MRI Brain/Cervical Spine ordered * Repeat CK wnl * CRP 2.97 (4.21), ESR 54 (27) -- Received outpatient records from rheumatology who was going to treat patient for PMR with proximal muscle weakness * Added SPEP, myasthenia labs, BRIAN 12, aldolase, acetylcholine labs * General Surgery consulted for muscle biopsy * --> s/p deltoid muscle biopsy * --> pathology may take up to 1-3 weeks * Per discussion with Neurology -- 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 elevated CSF protein can occur in other immune related conditions * Added anti -Jo1, anti ALTER[employer] TAILOR, anti synthetase. Paraneoplastic syndrome possible but no other evidence for this IV NSS @80cc/hr due to poor PO intake and elevated h/h further suggesting dehydration (15.8/49.6) Switched abx to Azithromycin PO (on day 3 of therapy) and Cefdinir 300mg BID (on day 3 of therapy) last evening 05/03 as patient without IV access able to be obtained and not wanting to place central line Will need outpatient vs inpatient EMG if without improvement with prednisone for IVIG/further evaluation and treatment (2) UTI (urinary tract infection): * ->100,000 Klebsiella pneumonia 8 colonies growing, resistant to ampicillin, nitrofurantoin, tetracycline - fax being sent from [facility] for chart, confirmed over the phone. * Cr elevated with KAYLIE on admission, Cr 1.38. Resolved with IVF to 0.93 * IV Levaquin completed course * UC no growth, bc ngtd * Patient denies hematuria, dysuria, increase in frequency, no cva tenderness on exam so unlikely to be pyelonephritis (3) Pneumonia: * Possible as per CXR-- R basilar parenchymal opacities, statistically atelectatic although infectious/inflammatory could appear similar * COVID negative. Biofire negative * Afebrile, no WBC, procal wnl on admission but repeat 0.05 * Switched to Ceftriaxone/Azithromycin evening of 05/02 for broadened coverage any hypoxia with O2 sat 86% on RA, currently 98% on 2L * Nebs prn sob/wheezing * Tylenol prn * ABG with CO2 retention - discussed weaning with RN. Patient did have O2 drop following anesthesia from muscle biopsy and was placed back on, but while patient awake was able to maintain >90% on RA * Wean as tolerated -- 96% on 1L Oxymask * Likely sob related moreso to inflammatory myopathy with difficultly swallowing more than pneumonia but will treat never the less * See above (4) HTN (hypertension): * No hx of such, BP significantly elevated here * Pt reports pain in back as primary issues as well as the R shoulder blade region - this may be related to possible pneumonia. * Increased lisinopril to 20mg with continued elevation in BP -- will increase to 30mg daily in am 12/5 as BP continues to be 170/88 despite addition of metoprolol (will decrease to 25mg BID from increased 50mg BID as HR in the 60- 70s) * Hydralazine prn * Continue to monitor (5) Hypothyroidism: * TSH 2.210 * Continue levothyroxine 25 mcg daily (6) Seizure disorder: * Last seizure like activity was approximately 3 years ago per patient, spent 1 week in continuous EEG unit at that time without findings other than one abnormal EEG. Follows with Dr. Borja in neurology as outpatient routinely * DIRECTOR DIABETES Keppra 2000 mg * Keppra level elevated as above -- continuing with 500mg BID after discussion with Dr. Andres * Neuro consult as above for tomorrow morning (7) Obesity (BMI 30-39.9): * BMI of 39.7, diet encouraged with poor ability to exercise (8) Restless leg: * May continue requip 2 mg po HS (9) Peripheral neuropathy: * Cont gabapentin mg qam, cymbalta 60 mg qam * Bilateral up to level of mid-crystal on exam * B12 elevated, folate wnl * Oxycodone prn (10) Vitamin D deficiency: * Cont supplementation Sepsis -secondary to UTI/pneumonia/inflammatory myopathy -Tachycardic with lactic >2 with repeat normal after 500cc NSS evening 05/01 DVT proph: * brenda billqamar subq (held for LP although did get this morning) Dispo: monitor over next 24-48 hours. If no significant improvement will need to evaluate transfer to tertiary facility Admission and Anticipated Discharge Date Admission Date: April 30, 2020 Subjective Patient evaluated this morning. Did get some rest last evening compared to days prior. Still with weakness and shortness of breath with activity/talking. Has been taking more PO intake but not much duet to taking small sips at a time. Difficulty swallowing but has been eating some. IV not able to be obtained last night but IV team successful at obtaining this morning and will give NS@80cc/hr for hydration. 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 LP with elevated protein and results look inflammatory. Patient would like to be on her left side for comfort. Sleepy this afternoon and we discussed putting on Oxymask for comfort as patient with NC tubing causing irritation and becoming dislodged. Did witness patient with de-saturation to 80% off oxygen, with improvement to 92% after Oxymask applied. Patient resting comfortably. She does notes she feels slightly better today compared to days prior, but not significantly. Will continue to monitor and discuss possible transfer over course of weekend if continues to be without significant improvement. Review of Systems Review of Systems: All systems reviewed & are unremarkable except as noted in HPI & below Physical Exam Constitutional: well developed, + obese and comfortable; no acute distress dehydrated -- dry mm Eyes: + anicteric sclerae and PERRL ENMT: Ears: no hearing impairment Neck: normal visual inspection Respiratory: normal respiratory effort; no respiratory distress, no labored breathing, + not able to speak in complete sentence (fatigues easily with speaking) and not tachypneic Auscultation: + diminished lung sounds (throughout); no crackles and no wheezes easily winded with any speaking Cardiovascular: Rate/Rhythm: regular rate and regular rhythm Heart Sounds: no murmur Vessels: no JVD (unable to assess due to body habitus) Extremities: + edema (1+ b/l LE) Gastrointestinal (Abdomen): normal bowel sounds, soft, nontender, no hepatosplenomegaly Musculoskeletal: Head/Neck/Chest: normocephalic and head atraumatic Skin: cool,dry Neurologic: Awake and alert, but drowsy EOMI, no nystagmus No facial droop neck muscles week 3 to 4-/ 5 strength distally and 1-2/5 strength proximally in all 4 limbs. Psychiatric: Orientation: alert and oriented x 3 Lymphatic: no cervical or axillary lymphadenopathy Results & Data Results & Data ([facility]) Vital Signs (Past 12 Hours) Vital Signs Temp Pulse Pulse Resp BP BP Pulse Ox 05/04/20 08:15 36.4 C L 79 14 167/79 H 97 05/04/20 02:44 36.6 C 88 14 165/82 H 92 05/04/20 01:22 71 158/95 H 05/03/20 23:41 36.5 C 60 14 180/92 H 91 05/03/20 21:14 92 05/03/20 21:11 86 L Laboratory Results 05/04/20 05/04/20 05/04/20 Range/Units 06:47 06:47 06:47 WBC 13.62 H (4.8-10.8) K/uL RBC 5.40 (4.2-5.4) M/uL Hgb 15.8 (12.0-16.0) g/dL Hct 49.6 H (37-47) % MCV 91.9 (80-100) fL MCH 29.3 (25-34) pg MCHC 31.9 L (32-36) g/dL RDW Std Deviation 47.8 H (36.4-46.3) fL RDW Coeff of Darin 14.3 (11.5-14.5) % Plt Count 349 (130-400) K/uL MPV 11.3 H (7.4-10.4) fL Immature Gran % (Auto) 0.3 % Neut % (Auto) 82.9 % Lymph % (Auto) 8.7 % Kaufman % (Auto) 7.9 % Eos % (Auto) 0.1 % Baso % (Auto) 0.1 % Neut # (Auto) 11.30 H (1.4-6.5) K/uL Lymph # (Auto) 1.18 L (1.2-3.4) K/uL Kaufman # (Auto) 1.07 H (0.11-0.59) K/uL Eos # (Auto) 0.01 (0-0.5) K/uL Baso # (Auto) 0.02 (0-0.2) K/uL Immature Gran # (Auto) 0.04 H (0.00-0.02) K/uL ESR 61 H (0-21) mm/hr VBG pH (7.36-7.41) VBG pCO2 (38-50) mmHg VBG pO2 mmHg VBG HCO3 mmol/L VBG O2 Saturation % VBG Base Excess mEq/L Barometric Pressure mm/Hg Sodium 139 (136-145) mmol/L Potassium 4.0 (3.5-5.1) mmol/L Chloride 103 (98-107) mmol/L Carbon Dioxide 29 (21-32) mmol/L Anion Gap 7.0 (3-11) BUN 26 H (7-18) mg/dl Creatinine 0.81 (0.6-1.2) mg/dl Est Cr Clr Drug Dosing 86.1 ml/min Est GFR ( Amer) 90.9 Est GFR (Non-Af Amer) 78.4 BUN/Creatinine Ratio 31.7 H (10-20) Glucose 84 (70-99) mg/dl Calcium 10.0 (8.5-10.1) mg/dl Total Bilirubin 0.4 (0.2-1) mg/dl AST 27 (15-37) U/L ALT 25 (12-78) U/L Alkaline Phosphatase 124 H (45-117) U/L C-Reactive Protein 1.80 H (0-0.29) mg/dl Total Protein 7.9 (6.4-8.2) gm/dl Albumin 3.3 L (3.4-5.0) gm/dl Globulin 4.6 H (2.5-4.0) gm/dl Albumin/Globulin Ratio 0.7 L (0.9-2) Fld Lyme DNA (PCR) CSF Appearance CSF Color Xanthrochromic CSF WBC (0-5) /uL CSF RBC (0-) /uL CSF Cell Count Tube # CSF Mononuclear WBCs % % CSF Chemistry Tube # CSF Glucose (40-70) mg/dl CSF Lactate (0.6-2.2) mmol/L CSF Total Protein (15-45) mg/dl CSF C.neoform/gat PCR (NotDetected) CSF CMV DNA (PCR) (NotDetected) CSF Enterovirus (PCR) (NotDetected) CSF E. coli K1 (PCR) (NotDetected) CSF H. influenzae (PCR) (NotDetected) CSF HSV I (PCR) (NotDetected) CSF HSV II (PCR) (NotDetected) CSF HHV 6 (PCR) (NotDetected) CSF L.monocytogenes PCR (NotDetected) CSF N. meningitidis PCR (NotDetected) CSF Parechovirus (PCR) (NotDetected) CSF S. agalactiae (PCR) (NotDetected) CSF S. pneumoniae (PCR) (NotDetected) CSF VZV DNA (PCR) (NotDetected) Lyme Specimen Source 05/03/20 05/03/20 05/03/20 Range/Units 14:15 14:15 14:15 WBC (4.8-10.8) K/uL RBC (4.2-5.4) M/uL Hgb (12.0-16.0) g/dL Hct (37-47) % MCV (80-100) fL MCH (25-34) pg MCHC (32-36) g/dL RDW Std Deviation (36.4-46.3) fL RDW Coeff of Darin (11.5-14.5) % Plt Count (130-400) K/uL MPV (7.4-10.4) fL Immature Gran % (Auto) % Neut % (Auto) % Lymph % (Auto) % Kaufman % (Auto) % Eos % (Auto) % Baso % (Auto) % Neut # (Auto) (1.4-6.5) K/uL Lymph # (Auto) (1.2-3.4) K/uL Kaufman # (Auto) (0.11-0.59) K/uL Eos # (Auto) (0-0.5) K/uL Baso # (Auto) (0-0.2) K/uL Immature Gran # (Auto) (0.00-0.02) K/uL ESR (0-21) mm/hr VBG pH (7.36-7.41) VBG pCO2 (38-50) mmHg VBG pO2 mmHg VBG HCO3 mmol/L VBG O2 Saturation % VBG Base Excess mEq/L Barometric Pressure mm/Hg Sodium (136-145) mmol/L Potassium (3.5-5.1) mmol/L Chloride (98-107) mmol/L Carbon Dioxide (21-32) mmol/L Anion Gap (3-11) BUN (7-18) mg/dl Creatinine (0.6-1.2) mg/dl Est Cr Clr Drug Dosing ml/min Est GFR ( Amer) Est GFR (Non-Af Amer) BUN/Creatinine Ratio (10-20) Glucose (70-99) mg/dl Calcium (8.5-10.1) mg/dl Total Bilirubin (0.2-1) mg/dl AST (15-37) U/L ALT (12-78) U/L Alkaline Phosphatase (45-117) U/L C-Reactive Protein (0-0.29) mg/dl Total Protein (6.4-8.2) gm/dl Albumin (3.4-5.0) gm/dl Globulin (2.5-4.0) gm/dl Albumin/Globulin Ratio (0.9-2) Fld Lyme DNA (PCR) Pending CSF Appearance Clear CSF Color Colorless Xanthrochromic No xanthochromia CSF WBC 4 (0-5) /uL CSF RBC 32 (0-) /uL CSF Cell Count Tube # 3 CSF Mononuclear WBCs % % CSF Chemistry Tube # 1 CSF Glucose 64 (40-70) mg/dl CSF Lactate 1.9 (0.6-2.2) mmol/L CSF Total Protein 111.6 H (15-45) mg/dl CSF C.neoform/gat PCR Not Detected (NotDetected) CSF CMV DNA (PCR) Not Detected (NotDetected) CSF Enterovirus (PCR) Not Detected (NotDetected) CSF E. coli K1 (PCR) Not Detected (NotDetected) CSF H. influenzae (PCR) Not Detected (NotDetected) CSF HSV I (PCR) Not Detected (NotDetected) CSF HSV II (PCR) Not Detected (NotDetected) CSF HHV 6 (PCR) Not Detected (NotDetected) CSF L.monocytogenes PCR Not Detected (NotDetected) CSF N. meningitidis PCR Not Detected (NotDetected) CSF Parechovirus (PCR) Not Detected (NotDetected) CSF S. agalactiae (PCR) Not Detected (NotDetected) CSF S. pneumoniae (PCR) Not Detected (NotDetected) CSF VZV DNA (PCR) Not Detected (NotDetected) Lyme Specimen Source Pending 05/03/20 Range/Units 10:11 WBC (4.8-10.8) K/uL RBC (4.2-5.4) M/uL Hgb (12.0-16.0) g/dL Hct (37-47) % MCV (80-100) fL MCH (25-34) pg MCHC (32-36) g/dL RDW Std Deviation (36.4-46.3) fL RDW Coeff of Darin (11.5-14.5) % Plt Count (130-400) K/uL MPV (7.4-10.4) fL Immature Gran % (Auto) % Neut % (Auto) % Lymph % (Auto) % Kaufman % (Auto) % Eos % (Auto) % Baso % (Auto) % Neut # (Auto) (1.4-6.5) K/uL Lymph # (Auto) (1.2-3.4) K/uL Kaufman # (Auto) (0.11-0.59) K/uL Eos # (Auto) (0-0.5) K/uL Baso # (Auto) (0-0.2) K/uL Immature Gran # (Auto) (0.00-0.02) K/uL ESR (0-21) mm/hr VBG pH 7.31 L (7.36-7.41) VBG pCO2 60 H (38-50) mmHg VBG pO2 31 mmHg VBG HCO3 29 mmol/L VBG O2 Saturation < 60.0 % VBG Base Excess 1.2 mEq/L Barometric Pressure 739.4 mm/Hg Sodium (136-145) mmol/L Potassium (3.5-5.1) mmol/L Chloride (98-107) mmol/L Carbon Dioxide (21-32) mmol/L Anion Gap (3-11) BUN (7-18) mg/dl Creatinine (0.6-1.2) mg/dl Est Cr Clr Drug Dosing ml/min Est GFR ( Amer) Est GFR (Non-Af Amer) BUN/Creatinine Ratio (10-20) Glucose (70-99) mg/dl Calcium (8.5-10.1) mg/dl Total Bilirubin (0.2-1) mg/dl AST (15-37) U/L ALT (12-78) U/L Alkaline Phosphatase (45-117) U/L C-Reactive Protein (0-0.29) mg/dl Total Protein (6.4-8.2) gm/dl Albumin (3.4-5.0) gm/dl Globulin (2.5-4.0) gm/dl Albumin/Globulin Ratio (0.9-2) Fld Lyme DNA (PCR) CSF Appearance CSF Color Xanthrochromic CSF WBC (0-5) /uL CSF RBC (0-) /uL CSF Cell Count Tube # CSF Mononuclear WBCs % % CSF Chemistry Tube # CSF Glucose (40-70) mg/dl CSF Lactate (0.6-2.2) mmol/L CSF Total Protein (15-45) mg/dl CSF C.neoform/gat PCR (NotDetected) CSF CMV DNA (PCR) (NotDetected) CSF Enterovirus (PCR) (NotDetected) CSF E. coli K1 (PCR) (NotDetected) CSF H. influenzae (PCR) (NotDetected) CSF HSV I (PCR) (NotDetected) CSF HSV II (PCR) (NotDetected) CSF HHV 6 (PCR) (NotDetected) CSF L.monocytogenes PCR (NotDetected) CSF N. meningitidis PCR (NotDetected) CSF Parechovirus (PCR) (NotDetected) CSF S. agalactiae (PCR) (NotDetected) CSF S. pneumoniae (PCR) (NotDetected) CSF VZV DNA (PCR) (NotDetected) Lyme Specimen Source PG Care Time/CCT Total # of Minutes Spent Total Time Spent with Patient: Total time spent is greater than 50% in coordination of care (as documented) at patient's floor/unit and/or counseling patient: Coding Level of Care Code 33556 Subseq Hosp Care Lvl 3 Diagnoses Weakness R53.1 UTI (urinary tract infection) N39.0 Hematuria presence: without hematuria Urinary tract infection type: site unspecified Pneumonia J18.9 Laterality: unspecified laterality Lung location: unspecified part of lung Pneumonia type: due to unspecified organism HTN (hypertension) I10 Hypertension type: unspecified Hypothyroidism E03.9 Seizure disorder G40.909 Obesity (BMI 30-39.9) E66.9 Restless leg G25.81 Peripheral neuropathy G62.9 Vitamin D deficiency E55.9 (1) UTI (urinary tract infection) Hematuria presence: without hematuria Urinary tract infection type: site unspecified Qualified Code(s): N39.0 - Urinary tract infection, site not specified (2) Pneumonia Laterality: unspecified laterality Lung location: unspecified part of lung Pneumonia type: due to unspecified organism Qualified Code(s): J18.9 - Pneumonia, unspecified organism (3) HTN (hypertension) Hypertension type: unspecified Qualified Code(s): I10 - Essential (primary) hypertension
--- NOTE | 2020-05-04 11:40 | Surgery Progress Note ---
Date of Service F/U S/P right arm muscle biopsy, POD 1 stable, I informed pt about Or finding and the procedure pt had. May 04, 2020 Assessment & Plan (1) Weakness: pt is a 59 year-old female who was admitted to hospital for weakness, I was asked to do muscle biopsy( Deltoid) IMP: weakness Plan, I recommend to do right arm Deltoid muscle biopsy, D/W benefits, risks and alternatives of the surgery, the risks - infection , bleeding, worse weakness, respiratory failure, , pt understood, she agrees with the surgery, I answered all questions, 05/04/2020, 11:39AM stable, S/P muscle biopsy, pathology is pending, please F/U report. sign off today, please call with questions, Thanks, Admission and Anticipated Discharge Date Admission Date: April 30, 2020 Supervising Physician Co-Signing Physician Notes I personally saw and examined the patient. I verified all moreno points and agree with SELENA Hernández with the following exceptions and/or additions: 59 year old female with acute on chronic weakness. No urinary symptoms. Recently discharged from [place] for UTI but didn't take antibiotic. O/E HS1+2, no murmurs, [place] CTAB, No CVA tenderness A/P Suspect weakness due to UTI - Klebsiella Pneumonia should be covered with Levaquin per sensitivities discussed over the phone with [place] lab. Will fax copy to ER. PT/OT - likely to need rehab. Subjective Patient still feels weak. She underwent a successful muscle biopsy yesterday. I checked with pathology and the muscle biopsy is a send out test , and results probably will not be back for week. She is having some trouble swallowing but is eating. She has no double vision issues. Her weakness is still the same. Today ESR is 61 and CBC shows a white count of 13.6. C reactive protein is 1.8. On May 01, echocardiogram was unremarkable. Lumbar puncture yesterday revealed a protein of 111 with a glucose of 64 and 4 white cells. It was clear and colorless. Gram stain was negative. Physical Exam Constitutional: WD/WN, vitals as above + ill appearing Eyes: PERRL, conjunctivae normal, anicteric sclerae ENMT: external ear and nose normal, oropharynx normal Neck: trachea midline, no thyromegaly Respiratory: normal respiratory effort, lungs clear to auscultation Cardiovascular: RRR, no murmur, no edema Rate/Rhythm: regular rate and regular rhythm Gastrointestinal (Abdomen): normal bowel sounds, soft, nontender, no hepatosplenomegaly Skin: no rashes, warm and dry the incision site dry, no redness, Neurologic: awake Psychiatric: Orientation: alert and oriented x 3 Results & Data ([facility]) Vital Signs (Past 12 Hours) Vital Signs Temp Pulse Pulse Resp BP BP Pulse Ox 05/04/20 08:15 36.4 C L 79 14 167/79 H 97 05/04/20 02:44 36.6 C 88 14 165/82 H 92 05/04/20 01:22 71 158/95 H 05/03/20 23:41 36.5 C 60 14 180/92 H 91 Laboratory Results Abnormal lab results 05/03/20 05/04/20 05/04/20 Range/Units 14:15 06:47 06:47 WBC 13.62 H (4.8-10.8) K/uL Hct 49.6 H (37-47) % MCHC 31.9 L (32-36) g/dL RDW Std Deviation 47.8 H (36.4-46.3) fL MPV 11.3 H (7.4-10.4) fL Neut # (Auto) 11.30 H (1.4-6.5) K/uL Lymph # (Auto) 1.18 L (1.2-3.4) K/uL [place] # (Auto) 1.07 H (0.11-0.59) K/uL Immature Gran # (Auto) 0.04 H (0.00-0.02) K/uL ESR 61 H (0-21) mm/hr BUN (7-18) mg/dl BUN/Creatinine Ratio (10-20) Alkaline Phosphatase (45-117) U/L C-Reactive Protein (0-0.29) mg/dl Albumin (3.4-5.0) gm/dl Globulin (2.5-4.0) gm/dl Albumin/Globulin Ratio (0.9-2) CSF Total Protein 111.6 H (15-45) mg/dl 05/04/20 Range/Units 06:47 WBC (4.8-10.8) K/uL Hct (37-47) % MCHC (32-36) g/dL RDW Std Deviation (36.4-46.3) fL MPV (7.4-10.4) fL Neut # (Auto) (1.4-6.5) K/uL Lymph # (Auto) (1.2-3.4) K/uL [place] # (Auto) (0.11-0.59) K/uL Immature Gran # (Auto) (0.00-0.02) K/uL ESR (0-21) mm/hr BUN 26 H (7-18) mg/dl BUN/Creatinine Ratio 31.7 H (10-20) Alkaline Phosphatase 124 H (45-117) U/L C-Reactive Protein 1.80 H (0-0.29) mg/dl Albumin 3.3 L (3.4-5.0) gm/dl Globulin 4.6 H (2.5-4.0) gm/dl Albumin/Globulin Ratio 0.7 L (0.9-2) CSF Total Protein (15-45) mg/dl
[2020-05-04] MEDS: traMADol HCL 50 MG TABLET PO PRN ×2 (12:15→19:42)
[2020-05-04] MEDS: SODIUM CHLORIDE 0.9% 1000ML 1,000 ML IV SCH (13:14)
[2020-05-04] MEDS: AZITHROMYCIN 250 MG TAB PO SCH (17:59)
[2020-05-04] MEDS: MAGNESIUM OXIDE 400 MG TAB PO SCH (20:14)
[2020-05-04] MEDS: METOPROLOL TARTRATE 25 MG TAB PO SCH (20:14)
[2020-05-04] MEDS: rOPINIRole HCL 1 MG TABLET PO SCH (20:15)
[2020-05-05] MEDS: SODIUM CHLORIDE 0.9% 1000ML 1,000 ML IV SCH ×2 (02:20→19:57)
[2020-05-05] MEDS: traMADol HCL 50 MG TABLET PO PRN (04:41)
[2020-05-05 04:52] LABS: Basophils # (auto) 0.03 K/uL (0-0.2); Basophils % (auto) 0.2 %; Eosinophils # (auto) 0.02 K/uL (0-0.5); Eosinophils % (auto) 0.2 %; Hematocrit (blood only) 48.3 % (37-47); Hemoglobin 15.2 g/dL (12.0-16.0); Immature Granulocytes # (auto) 0.03 K/uL (0.00-0.02); Immature Granulocytes % (auto) 0.2 %; Lymphocytes # (auto) 1.47 K/uL (1.2-3.4); Lymphocytes % (auto) 12.1 %; Mean Corpuscular Hemoglobin 29.2 pg (25-34); Mean Corpuscular Hgb Conc 31.5 g/dL (32-36); Mean Corpuscular Volume 92.7 fL (80-100); Mean Platelet Volume 11.2 fL (7.4-10.4); Monocytes % (auto) 11.5 %; Neutrophils # (auto) 9.22 K/uL (1.4-6.5); Neutrophils % (auto) 75.8 %; Platelet Count 300 K/uL (130-400); RDW Coefficient of Variation 14.4 % (11.5-14.5); RDW Standard Deviation 48.5 fL (36.4-46.3); Red Blood Count 5.21 M/uL (4.2-5.4); White Blood Count 12.17 K/uL (4.8-10.8)
[2020-05-05 17:15] LABS: Albumin Globulin Ratio 0.8 (0.9-2); Albumin Level 3.2 gm/dl (3.4-5.0); BUN Creatinine Ratio 31.6 (10-20); Bilirubin,Total 0.3 mg/dl (0.2-1); Calcium 9.6 mg/dl (8.5-10.1); Creatinine Clr Calc Pharmacy 78.4 ml/min; Est GFR (African American) 81.1; Globulin 4.2 gm/dl (2.5-4.0); Potassium 3.6 mmol/L (3.5-5.1); Total Protein 7.4 gm/dl (6.4-8.2)
[2020-05-05] MEDS: DULoxetine HCL 60 MG CAP PO SCH (19:55)
[2020-05-05] MEDS: levETIRAcetam 500 MG TAB PO SCH ×2 (19:55→22:04)
[2020-05-05] MEDS: LIDOCAINE 5% 1 PATCH TD SCH (19:55)
[2020-05-05] MEDS: LEVOTHYROXINE SODIUM 25 MCG TABLET PO SCH (19:55)
[2020-05-05] MEDS: METOPROLOL TARTRATE 25 MG TAB PO SCH ×2 (19:55→20:44)
[2020-05-05] MEDS: guaiFENesin 600 MG TABCR PO SCH ×2 (19:56→20:46)
[2020-05-05] MEDS: GABAPENTIN 300 MG CAP PO SCH (19:56)
[2020-05-05] MEDS: predniSONE 20 MG TAB PO SCH (19:56)
[2020-05-05] MEDS: CEFDINIR 300 MG CAP PO SCH ×2 (19:56→22:09)
[2020-05-05] MEDS: CYANOCOBALAMIN 500 MCG TABLET (VITAMIN B-12) PO SCH (19:56)
[2020-05-05] MEDS: CHOLECALCIFEROL 1,000 UNITS 25 MCG TAB PO SCH (19:56)
[2020-05-05] MEDS: ENOXAPARIN INJ 40 MG/0.4 ML SYR SQ SCH (19:56)
[2020-05-05] MEDS: AZITHROMYCIN 250 MG TAB PO SCH (19:57)
[2020-05-05] MEDS: lisinopril 10 MG TAB PO SCH (19:57)
[2020-05-05] MEDS: rOPINIRole HCL 1 MG TABLET PO SCH (20:43)
[2020-05-05] MEDS: MAGNESIUM OXIDE 400 MG TAB PO SCH (20:44)
[2020-05-05] MEDS: oxyCODONE HCL IR 5 MG TAB (IMMEDIATE RELEASE) PO PRN (20:55)
[2020-05-06] MEDS: SODIUM CHLORIDE 0.9% 1000ML 1,000 ML IV SCH ×3 (00:41→22:56)
[2020-05-06] MEDS: LEVOTHYROXINE SODIUM 25 MCG TABLET PO SCH (05:55)
[2020-05-06 06:15] LABS: Hematocrit (blood only) 42.6 % (37-47); Hemoglobin 13.9 g/dL (12.0-16.0); Mean Corpuscular Hemoglobin 30.2 pg (25-34); Mean Corpuscular Hgb Conc 32.6 g/dL (32-36); Mean Corpuscular Volume 92.6 fL (80-100); Mean Platelet Volume 11.2 fL (7.4-10.4); Platelet Count 292 K/uL (130-400); RDW Coefficient of Variation 14.7 % (11.5-14.5); RDW Standard Deviation 49.8 fL (36.4-46.3); White Blood Count 8.45 K/uL (4.8-10.8)
[2020-05-06 06:49] LABS: Albumin Level 2.7 gm/dl (3.4-5.0); BUN Creatinine Ratio 28.6 (10-20); Calcium 8.8 mg/dl (8.5-10.1); Creatinine Clr Calc Pharmacy 76.7 ml/min; Est GFR (African American) 78.9; Est GFR (Non-African American) 68.1; Potassium 3.4 mmol/L (3.5-5.1)
[2020-05-06 06:52] LABS: Albumin Globulin Ratio 0.7 (0.9-2); Bilirubin,Total 0.3 mg/dl (0.2-1); C Reactive Protein 1.1 mg/dl (0-0.29); Globulin 3.7 gm/dl (2.5-4.0); Total Protein 6.4 gm/dl (6.4-8.2)
[2020-05-06] MEDS: LIDOCAINE 5% 1 PATCH TD SCH (08:51)
[2020-05-06] MEDS: predniSONE 20 MG TAB PO SCH (08:59)
[2020-05-06] MEDS: CYANOCOBALAMIN 500 MCG TABLET (VITAMIN B-12) PO SCH (09:00)
[2020-05-06] MEDS: GABAPENTIN 300 MG CAP PO SCH (09:00)
[2020-05-06] MEDS: CHOLECALCIFEROL 1,000 UNITS 25 MCG TAB PO SCH (09:00)
[2020-05-06] MEDS: ENOXAPARIN INJ 40 MG/0.4 ML SYR SQ SCH (09:01)
[2020-05-06] MEDS: guaiFENesin 600 MG TABCR PO SCH ×2 (09:01→20:36)
[2020-05-06] MEDS: lisinopril 10 MG TAB PO SCH (09:02)
[2020-05-06] MEDS: DULoxetine HCL 60 MG CAP PO SCH (09:02)
[2020-05-06] MEDS: AZITHROMYCIN 250 MG TAB PO SCH (09:03)
[2020-05-06] MEDS: CEFDINIR 300 MG CAP PO SCH ×2 (09:04→20:36)
[2020-05-06] MEDS: METOPROLOL TARTRATE 25 MG TAB PO SCH ×2 (09:04→20:36)
--- NOTE | 2020-05-06 09:38 | Hospitalist Progress Note ---
Date of Service May 06, 2020 Assessment & Plan (1) Weakness: * Considered to possibly be inflammatory, concerning for inflammatory myopathy vs PMR vs myasthenia, metabolic encephalopathy, toxic encephalopathy(elevated Keppra level) * attempting steroids, pending muscle biopsy results * CRP 2.97 (4.21), ESR 54 (27) -- Received outpatient records from rheumatology who was going to treat patient for PMR with proximal muscle weakness * LP on 05/03 with elevated protein in her CSF without signs of infection. elevated CSF protein can occur in other immune related conditions * pending anti -Jo1, anti RN PERIOPERATIVE, anti synthetase. * * I personally discussed with Neurology --There maybe a slight improvement per patient and nursing, 50% myositis refractory to prednisone and if patient does not make improvement over next 24-48 hours will need to consider transfer to tertiary faciltiy * Started prednisone 60mg PO 05/03 following muscle biopsy/LP * * * Procal, ferritin, LDH wnl * CK was 352 on admission * ECHO without vegetation * Lyme negative. biofiore negative, covid negative * Keppra level elevated 51.8 and keppra was decreased to 500mg BID --unclear how this impacts * Urine Cx negative * BCx NO GROWTH- final * Neurology consulted * CT Head negative * MRI Brain/Cervical Spine ordered, Brain no acute abnormality, scattered microangiopathic changes, cervical spine normal chord morphology multilevel spondylosis, does have moderate to severe foraminal stenosis c3-6, may consider curbside consult with ortho spine to review images on thursday * * pending SPEP, myasthenia labs, BRIAN 12, aldolase, acetylcholine labs * consider outpatient EMG if without improvement with prednisone for IVIG/fu rther evaluation and treatment (2) UTI (urinary tract infection): * ->100,000 Klebsiella pneumonia 8 colonies growing, resistant to ampicillin, nitrofurantoin, tetracycline - fax being sent from [facility] for chart, confirmed over the phone. * IV Levaquin completed course * UC no growth, bc ngtd (3) Pneumonia: * Possible as per CXR-- R basilar parenchymal opacities, statistically atelectatic although infectious/inflammatory could appear similar * COVID negative. Biofire negative * Ceftriaxone/Azithromycin evening of 05/02 for broadened coverage any hypoxia with O2 sat 86% on RA, currently 98% on 2L, lost iv access changed to po * * Wean as tolerated -- 96% on 1L Oxymask (4) HTN (hypertension): * No hx of such, BP significantly elevated here * Pt reports pain in back as primary issues as well as the R shoulder blade region - this may be related to possible pneumonia. * Increased lisinopril to 30mg daily in am 12/5, plus addition of metoprolol * Hydralazine prn * Continue to monitor (5) Hypothyroidism: * TSH 2.210 * Continue levothyroxine 25 mcg daily (6) Seizure disorder: * Last seizure like activity was approximately 3 years ago per patient, spent 1 week in continuous EEG unit at that time without findings other than one abnormal EEG. Follows with Dr. 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 Andres * Neuro consult following (7) Obesity (BMI 30-39.9): * BMI of 39.7, diet encouraged with poor ability to exercise (8) Restless leg: * May continue requip 2 mg po HS (9) Peripheral neuropathy: * Cont gabapentin mg qam, cymbalta 60 mg qam * Bilateral up to level of mid-crystal on exam * B12 elevated, folate wnl * Oxycodone prn (10) Vitamin D deficiency: * Cont supplementation Sepsis -secondary to UTI/pneumonia/inflammatory myopathy -Tachycardic with lactic >2 with repeat normal after 500cc NSS evening 12/ DVT proph: * joceline gutierrez subq (held for LP although did get this morning) Dispo: PT/OT consults for profound progressive weakness over the past 2 days, s/p fall/slip from off the toilet --> rec rehab. Ref sent for Koko Garcia Admission and Anticipated Discharge Date Admission Date: April 30, 2020 Subjective Difficult to assess as this is my first time seeing the patient. Patient is states that she is feeling better feeling more strong was able eat more food. She is with appearance of being extremely fatigued laying in bed she is able to lift her arm she is able to smile and speak to me. I did speak to her daughter and told her that considerations for transfer for tertiary care evaluation will be postponed and reassessed in another day Review of Systems Review of Systems: Mild to moderate distress and fatigue no headache, blurry or double vision no speech or swallowing issues however patient complains of decreased fatigability she is certainly not coughing with swallowing today no chest pain, pressure or palpitations no shortness of breath, cough or wheezes no abdominal pain, nausea or vomiting, diarrhea or constipation no dysuria, hematuria or frequency no focal joint pain or swelling no back pain, CVA tenderness or radicular pain no bruising, bleeding or rashes Patient is globally weak to arms and legs had difficulty moving about in bed no complaints of anxiety or depression. Physical Exam Physical Exam: The patient appeared chronically ill and fatigued Vital signs as documented. Lungs are clear to auscultation although decreased effort and decreased air movement Cardiac exam, Rhythm is regular.. No murmurs, rubs or gallops. Abdominal exam reveals normal bowel sounds, soft non tender, no masses Extremities are nonedematous and she does exhibit weakness but can move against gravity Neurologic exam is alert and oriented, no focal loss of strength does have the weakness as listed above Skin is without bruises or rashes Psychologically is with concerns for depression. Results & Data Results & Data ([facility]) Vital Signs (Past 12 Hours) Vital Signs Temp Pulse Pulse Resp BP BP Pulse Ox 05/06/20 08:54 93 H 144/80 H 05/06/20 08:41 98.2 F 99 H 99 H 16 181/102 H 93 05/06/20 03:39 97.7 F 72 16 129/70 93 05/06/20 00:22 Pulse Ox 05/06/20 08:54 05/06/20 08:41 05/06/20 03:39 05/06/20 00:22 95 PG Care Time/CCT Total # of Minutes Spent Total Time Spent with Patient: Total time spent is greater than 50% in coordination of care (as documented) at patient's floor/unit and/or counseling patient: Coding Level of Care Code 36687 Subseq Hosp Care Lvl 3 Diagnoses Weakness R53.1 UTI (urinary tract infection) N39.0 Hematuria presence: without hematuria Urinary tract infection type: site unspecified Pneumonia J18.9 Laterality: unspecified laterality Lung location: unspecified part of lung Pneumonia type: due to unspecified organism HTN (hypertension) I10 Hypertension type: unspecified Hypothyroidism E03.9 Seizure disorder G40.909 Obesity (BMI 30-39.9) E66.9 Restless leg G25.81 Peripheral neuropathy G62.9 Vitamin D deficiency E55.9 (1) UTI (urinary tract infection) Hematuria presence: without hematuria Urinary tract infection type: site unspecified Qualified Code(s): N39.0 - Urinary tract infection, site not specified (2) HTN (hypertension) Hypertension type: unspecified Qualified Code(s): I10 - Essential (primary) hypertension (3) Pneumonia Laterality: unspecified laterality Lung location: unspecified part of lung Pneumonia type: due to unspecified organism Qualified Code(s): J18.9 - Pneumonia, unspecified organism
[2020-05-06] MEDS: traMADol HCL 50 MG TABLET PO PRN (09:41)
[2020-05-06] MEDS: levETIRAcetam 500 MG TAB PO SCH ×2 (09:41→20:36)
[2020-05-06] MEDS: oxyCODONE HCL IR 5 MG TAB (IMMEDIATE RELEASE) PO PRN ×2 (14:46→22:46)
[2020-05-06 19:54] LABS: Lyme DNA PCR CSF or Synovial Not detected (Not Detected); Lyme DNA Source CSF
[2020-05-06] MEDS: MAGNESIUM OXIDE 400 MG TAB PO SCH (20:35)
[2020-05-06] MEDS: rOPINIRole HCL 1 MG TABLET PO SCH (20:36)
[2020-05-07] MEDS ORDERED: POLYETHYLENE (MIRALAX) 17 GM PACK PO ONE (01:30)
[2020-05-07] MEDS: traMADol HCL 50 MG TABLET PO PRN (03:55)
[2020-05-07] MEDS: LEVOTHYROXINE SODIUM 25 MCG TABLET PO SCH (05:51)
[2020-05-07] MEDS: SODIUM CHLORIDE 0.9% 1000ML 1,000 ML IV SCH ×2 (05:52→20:43)
[2020-05-07] MEDS: guaiFENesin 600 MG TABCR PO SCH ×2 (07:59→20:46)
[2020-05-07] MEDS: GABAPENTIN 300 MG CAP PO SCH (07:59)
[2020-05-07] MEDS: CHOLECALCIFEROL 1,000 UNITS 25 MCG TAB PO SCH (07:59)
[2020-05-07] MEDS: LIDOCAINE 5% 1 PATCH TD SCH (07:59)
[2020-05-07] MEDS: AZITHROMYCIN 250 MG TAB PO SCH (07:59)
[2020-05-07] MEDS: DULoxetine HCL 60 MG CAP PO SCH (08:00)
[2020-05-07] MEDS: CEFDINIR 300 MG CAP PO SCH ×2 (08:00→20:45)
[2020-05-07] MEDS: levETIRAcetam 500 MG TAB PO SCH ×2 (08:00→20:45)
[2020-05-07] MEDS: METOPROLOL TARTRATE 25 MG TAB PO SCH ×2 (08:00→20:45)
[2020-05-07] MEDS: lisinopril 10 MG TAB PO SCH (08:00)
[2020-05-07] MEDS: predniSONE 20 MG TAB PO SCH (08:00)
[2020-05-07] MEDS: ENOXAPARIN INJ 40 MG/0.4 ML SYR SQ SCH (08:00)
[2020-05-07] MEDS: CYANOCOBALAMIN 500 MCG TABLET (VITAMIN B-12) PO SCH (08:00)
[2020-05-07] MEDS: POLYETHYLENE (MIRALAX) 17 GM PACK PO SCH ×2 (08:05→20:46)
[2020-05-07 10:17] LABS: Hematocrit (blood only) 42.6 % (37-47); Hemoglobin 13.2 g/dL (12.0-16.0); Mean Corpuscular Volume 93.6 fL (80-100); Mean Platelet Volume 11.5 fL (7.4-10.4); Platelet Count 239 K/uL (130-400); RDW Coefficient of Variation 14.7 % (11.5-14.5); RDW Standard Deviation 49.6 fL (36.4-46.3); Red Blood Count 4.55 M/uL (4.2-5.4); White Blood Count 9.31 K/uL (4.8-10.8)
[2020-05-07 10:33] LABS: BUN Creatinine Ratio 19.7 (10-20); Calcium 9.3 mg/dl (8.5-10.1); Creatinine Clr Calc Pharmacy 67.7 ml/min; Est GFR (African American) 67.9; Est GFR (Non-African American) 58.6; Potassium 3.6 mmol/L (3.5-5.1)
--- NOTE | 2020-05-07 16:42 | Hospitalist Progress Note ---
Date of Service May 07, 2020 Assessment & Plan (1) Weakness: * Considered to possibly be inflammatory, concerning for inflammatory myopathy vs PMR vs myasthenia, metabolic encephalopathy, toxic encephalopathy(elevated Keppra level) * attempting steroids, pending muscle biopsy results * CRP 2.97 (4.21), ESR 54 (27) -- Received outpatient records from rheumatology who was going to treat patient for PMR with proximal muscle weakness * LP on 05/03 with elevated protein in her CSF without signs of infection. elevated CSF protein can occur in other immune related conditions and can also occur in uncontrolled hypertension which patient was suffering from earlier in her admission and possibly preadmission * pending anti -Jo1, anti DRILL PRESS OPERATOR NUMERICAL CONTROL, anti synthetase. * * There maybe a slight improvement per patient and nursing. * Started prednisone 60mg PO 05/03 following muscle biopsy/LP * * Procal, ferritin, LDH wnl * CK was 352 on admission * ECHO without vegetation * Lyme negative. biofiore negative, covid negative * Keppra level elevated 51.8 and keppra was decreased to 500mg BID --unclear how this impacts * Urine Cx negative * BCx NO GROWTH- final * Neurology consulted * CT Head negative * MRI Brain/Cervical Spine ordered, Brain no acute abnormality, scattered microangiopathic changes, cervical spine normal chord morphology multilevel spondylosis, does have moderate to severe foraminal stenosis c3-6 - discussed with ortho and no indication for surgical intervention * * pending SPEP, myasthenia labs, BRIAN 12, aldolase, acetylcholine labs * I did speak to neurology today and they will see her tomorrow. They recommend continuing to try and secure a rehab facility and have patient follow with neurology after discharge for an EMG as this will be necessary to make a definitive diagnosis. Transfer to tertiary care facility is probably not necessary unless respiratory status is compromised. Patient has been saturating around 95% on 2L, does not feel sob. Will need outpatient EMG for definitive diagnosis, can obtain IVIG if outpatient if necessary (2) UTI (urinary tract infection): * ->100,000 Klebsiella pneumonia 8 colonies growing, resistant to ampicillin, nitrofurantoin, tetracycline - fax being sent from [facility] for chart, confirmed over the phone. * IV Levaquin completed course * UC no growth, bc ngtd (3) Pneumonia: * Possible as per CXR-- R basilar parenchymal opacities, statistically atelectatic although infectious/inflammatory could appear similar * COVID negative. Biofire negative * Ceftriaxone/Azithromycin evening of 05/02 for broadened coverage any hypoxia with O2 sat 86% on RA, currently 98% on 2L, lost iv access changed to po (4) HTN (hypertension): * No hx of such, BP significantly elevated here * Pt reports pain in back as primary issues as well as the R shoulder blade region - this may be related to possible pneumonia. * Increased lisinopril to 30mg daily in am 12, plus addition of metoprolol - blood pressure improved though still slightly hypertensive * Hydralazine prn (5) Hypothyroidism: * TSH 2.210 * Continue levothyroxine 25 mcg daily (6) Seizure disorder: * Last seizure like activity was approximately 3 years ago per patient, spent 1 week in continuous EEG unit at that time without findings other than one abnormal EEG. Follows with Dr. Borja in neurology as outpatient routinely * METALSMITH Keppra 2000 mg * Keppra level elevated as above -- reduced dose and continuing with 500mg BID after discussion with Dr. Andres * Neuro consult following (7) Obesity (BMI 30-39.9): * BMI of 39.7, diet encouraged with poor ability to exercise (8) Restless leg: * May continue requip 2 mg po HS (9) Peripheral neuropathy: * Cont gabapentin mg qam, cymbalta 60 mg qam * Bilateral up to level of mid-crystal on exam * B12 elevated, folate wnl * Oxycodone prn (10) Sepsis: -secondary to UTI/pneumonia/inflammatory myopathy -Tachycardic with lactic >2 with repeat normal after 500cc NSS evening 05/01 (11) Vitamin D deficiency: * Cont supplementation DVT proph: * teds, lovenox subq (held for LP although did get this morning) Dispo: PT/OT consults for profound progressive weakness --> rec rehab. Ref sent for Koko Garcia Admission and Anticipated Discharge Date Admission Date: April 30, 2020 Subjective Ms. Sanches is feeling better, a bit stronger. She still cannot support her weight to stand. Review of Systems Constitutional: no fever, no chills and no body aches Respiratory: no cough and no dyspnea Cardiovascular: no chest pain and no palpitations Gastrointestinal: no abdominal pain, no nausea and no vomiting Genitourinary: no dysuria and no urinary hesitancy Musculoskeletal: + back pain; no joint pain Integumentary: no rash Neurologic: + generalized weakness Physical Exam Physical Exam: General: no distress Eyes: normal inspection, PERLL Respiratory: chest non tender, clear to auscultation, normal breath sounds, no respiratory distress, no accessory muscle use Cardiac: regular rate and rhythm, no rub or gallop, no murmur, no edema, no jvd GI/: active bowel sounds, no abd pain or tenderness, soft, non distended Extremities: normal range of motion, generalized weakness , non tender Neuro/Psych: alert and oriented x 3, normal mood and affect Skin: normal color, dry Results & Data Results & Data ([facility]) Vital Signs (Past 12 Hours) Vital Signs Temp Pulse Resp BP Pulse Ox 05/07/20 07:00 37.4 C 60 18 157/69 H 95 PG Care Time/CCT Total # of Minutes Spent Total Time Spent with Patient: Total time spent is greater than 50% in coordination of care (as documented) at patient's floor/unit and/or counseling patient: Coding Level of Care Code 10371 Subseq Hosp Care Lvl 3 Diagnoses Weakness R53.1 UTI (urinary tract infection) N39.0 Hematuria presence: without hematuria Urinary tract infection type: site unspecified Pneumonia J18.9 Laterality: unspecified laterality Lung location: unspecified part of lung Pneumonia type: due to unspecified organism HTN (hypertension) I10 Hypertension type: unspecified Hypothyroidism E03.9 Seizure disorder G40.909 Obesity (BMI 30-39.9) E66.9 Restless leg G25.81 Peripheral neuropathy G62.9 Sepsis A41.9 Vitamin D deficiency E55.9 (1) UTI (urinary tract infection) Hematuria presence: without hematuria Urinary tract infection type: site unspecified Qualified Code(s): N39.0 - Urinary tract infection, site not specified (2) Pneumonia Laterality: unspecified laterality Lung location: unspecified part of lung Pneumonia type: due to unspecified organism Qualified Code(s): J18.9 - Pneumonia, unspecified organism (3) HTN (hypertension) Hypertension type: unspecified Qualified Code(s): I10 - Essential (primary) hypertension
[2020-05-07] MEDS: oxyCODONE HCL IR 5 MG TAB (IMMEDIATE RELEASE) PO PRN (20:44)
[2020-05-07] MEDS: rOPINIRole HCL 1 MG TABLET PO SCH (20:45)
[2020-05-07] MEDS: MAGNESIUM OXIDE 400 MG TAB PO SCH (20:45)
[2020-05-08] MEDS: oxyCODONE HCL IR 5 MG TAB (IMMEDIATE RELEASE) PO PRN ×2 (03:10→21:24)
[2020-05-08] MEDS: LEVOTHYROXINE SODIUM 25 MCG TABLET PO SCH (05:46)
[2020-05-08] MEDS: traMADol HCL 50 MG TABLET PO PRN (05:48)
[2020-05-08 06:21] LABS: Hematocrit (blood only) 40.8 % (37-47); Hemoglobin 12.9 g/dL (12.0-16.0); Mean Corpuscular Hemoglobin 29.5 pg (25-34); Mean Corpuscular Hgb Conc 31.6 g/dL (32-36); Mean Corpuscular Volume 93.2 fL (80-100); Mean Platelet Volume 11.4 fL (7.4-10.4); Platelet Count 195 K/uL (130-400); RDW Coefficient of Variation 14.5 % (11.5-14.5); RDW Standard Deviation 49.3 fL (36.4-46.3); Red Blood Count 4.38 M/uL (4.2-5.4); White Blood Count 7.65 K/uL (4.8-10.8)
[2020-05-08] MEDS: SODIUM CHLORIDE 0.9% 1000ML 1,000 ML IV SCH (06:29)
[2020-05-08 06:54] LABS: BUN Creatinine Ratio 18.2 (10-20); Calcium 8.6 mg/dl (8.5-10.1); Creatinine Clr Calc Pharmacy 78.4 ml/min; Est GFR (African American) 81.1; Potassium 3.3 mmol/L (3.5-5.1)
[2020-05-08] MEDS ORDERED: POTASSIUM CHLORIDE 20 MEQ/15 ML UDC PO STA (08:17)
[2020-05-08] MEDS: METOPROLOL TARTRATE 25 MG TAB PO SCH ×2 (09:07→21:19)
[2020-05-08] MEDS: levETIRAcetam 500 MG TAB PO SCH ×2 (09:07→21:20)
[2020-05-08] MEDS: GABAPENTIN 300 MG CAP PO SCH (09:07)
[2020-05-08] MEDS: guaiFENesin 600 MG TABCR PO SCH ×3 (09:08→21:19)
[2020-05-08] MEDS: CHOLECALCIFEROL 1,000 UNITS 25 MCG TAB PO SCH (09:08)
[2020-05-08] MEDS: DULoxetine HCL 60 MG CAP PO SCH (09:08)
[2020-05-08] MEDS: predniSONE 20 MG TAB PO SCH (09:09)
[2020-05-08] MEDS: lisinopril 10 MG TAB PO SCH (09:09)
[2020-05-08] MEDS: CYANOCOBALAMIN 500 MCG TABLET (VITAMIN B-12) PO SCH (09:09)
[2020-05-08] MEDS: DOCUSATE SODIUM/SENNA 50/8.6MG TAB PO SCH (09:09)
[2020-05-08] MEDS: ENOXAPARIN INJ 40 MG/0.4 ML SYR SQ SCH (09:10)
[2020-05-08] MEDS: LIDOCAINE 5% 1 PATCH TD SCH (09:10)
--- NOTE | 2020-05-08 13:36 | Hospitalist Progress Note ---
Date of Service May 08, 2020 Assessment & Plan (1) Weakness: * Considered to possibly be inflammatory, concerning for inflammatory myopathy vs PMR vs myasthenia, metabolic encephalopathy, toxic encephalopathy(elevated Keppra level) * attempting steroids, pending muscle biopsy results - result will take 3 weeks and the results will go to Dr. Garcia and a copy will be faxed to our lab who will upload it like a dictated pathology report * LP on 05/03 with elevated protein in her CSF without signs of infection. elevated CSF protein can occur in other immune related conditions and can also occur in uncontrolled hypertension which patient was suffering from earlier in her admission and possibly preadmission * pending anti -Jo1, anti HORSE RACING MANAGER, anti synthetase. * Started prednisone 60mg PO 05/03 following muscle biopsy/LP - improvement in strength though slow going. * * Procal, ferritin, LDH wnl * CK was 352 on admission * ECHO without vegetation * Lyme negative. biofiore negative, covid negative * Keppra level elevated 51.8 and keppra was decreased to 500mg BID --unclear how this impacts * Urine Cx negative * BCx NO GROWTH- final * CT Head negative * MRI Brain/Cervical Spine ordered, Brain no acute abnormality, scattered microangiopathic changes, cervical spine normal chord morphology multilevel spondylosis, does have moderate to severe foraminal stenosis c3-6 - discussed with ortho and no indication for surgical intervention * pending SPEP, myasthenia labs, BRIAN 12, aldolase, acetylcholine labs * Speech, PT/OT * I did speak to neurology yesterday and they will see her today. They recommend continuing to try and secure a rehab facility and have patient follow with neurology after discharge for an EMG as this will be necessary to make a definitive diagnosis. Transfer to tertiary care facility is probably not necessary unless respiratory status is compromised. Patient has been saturating around 95% on 2L, does not feel sob. Will need outpatient EMG for definitive diagnosis, can obtain IVIG if outpatient if necessary (2) UTI (urinary tract infection): * ->100,000 Klebsiella pneumonia 8 colonies growing, resistant to ampicillin, nitrofurantoin, tetracycline - fax being sent from [facility] for chart, confirmed over the phone. * IV Levaquin completed course * UC no growth, bc ngtd (3) Pneumonia: * Possible as per CXR-- R basilar parenchymal opacities, statistically atelectatic although infectious/inflammatory could appear similar * COVID negative. Biofire negative * Abx course completed (4) HTN (hypertension): * No hx of such, BP significantly elevated here * Pt reports pain in back as primary issues as well as the R shoulder blade region - this may be related to possible pneumonia. * Increased lisinopril to 40mg daily in am 12/8 * continue metoprolol * Hydralazine prn (5) Hypothyroidism: * TSH 2.210 * Continue levothyroxine 25 mcg daily (6) Seizure disorder: * Last seizure like activity was approximately 3 years ago per patient, spent 1 week in continuous EEG unit at that time without findings other than one abnormal EEG. Follows with Dr. Borja in neurology as outpatient routinely * BENDER HELPER Keppra 2000 mg * Keppra level elevated as above -- reduced dose and continuing with 500mg BID after discussion with Dr. Andres * Neuro consult following (7) Obesity (BMI 30-39.9): * BMI of 39.7, diet encouraged with poor ability to exercise (8) Restless leg: * May continue requip 2 mg po HS (9) Peripheral neuropathy: * Cont gabapentin mg qam, cymbalta 60 mg qam * Bilateral up to level of mid-crystal on exam * B12 elevated, folate wnl * Oxycodone prn (10) Sepsis: -secondary to UTI/pneumonia/inflammatory myopathy -Tachycardic with lactic >2 with repeat normal after 500cc NSS evening 12/ (11) Vitamin D deficiency: * Cont supplementation DVT proph: * joceline gutierrez subq Dispo: PT/OT consults for profound progressive weakness --> rec rehab. Ref sent for Koko Garcia Admission and Anticipated Discharge Date Admission Date: April 30, 2020 Subjective Ms. Sanches is able to feed herself and can participate in some ADLs, she feels stronger but is still overall weak. She does not feel she is having any further swallowing issues Review of Systems Constitutional: no fever, no chills and no body aches Respiratory: no cough and no dyspnea Cardiovascular: no chest pain and no palpitations Gastrointestinal: no abdominal pain, no nausea and no vomiting Genitourinary: no dysuria and no urinary hesitancy Musculoskeletal: no back pain and no joint pain Integumentary: no rash Physical Exam Physical Exam: General: no distress Eyes: normal inspection, PERLL Respiratory: chest non tender, clear to auscultation, normal breath sounds, no respiratory distress, no accessory muscle use Cardiac: regular rate and rhythm, no rub or gallop, no murmur, no edema, no jvd GI/: active bowel sounds, no abd pain or tenderness, soft, non distended Extremities: normal range of motion, generalized weakness, non tender Neuro/Psych: alert and oriented x 3, normal mood and affect Skin: normal color, dry, multiple small bruises arms and legs Results & Data Results & Data ([facility]) Vital Signs (Past 12 Hours) Vital Signs Temp Pulse Resp BP Pulse Ox 05/08/20 07:14 36.7 C 64 18 170/77 H 98 PG Care Time/CCT Total # of Minutes Spent Total Time Spent with Patient: Total time spent is greater than 50% in coordination of care (as documented) at patient's floor/unit and/or counseling patient: Coding Level of Care Code 09908 Subseq Hosp Care Lvl 3 Diagnoses Weakness R53.1 UTI (urinary tract infection) N39.0 Hematuria presence: without hematuria Urinary tract infection type: site unspecified Pneumonia J18.9 Laterality: unspecified laterality Lung location: unspecified part of lung Pneumonia type: due to unspecified organism HTN (hypertension) I10 Hypertension type: unspecified Hypothyroidism E03.9 Seizure disorder G40.909 Obesity (BMI 30-39.9) E66.9 Restless leg G25.81 Peripheral neuropathy G62.9 Sepsis A41.9 Vitamin D deficiency E55.9 (1) UTI (urinary tract infection) Hematuria presence: without hematuria Urinary tract infection type: site unspecified Qualified Code(s): N39.0 - Urinary tract infection, site not specified (2) Pneumonia Laterality: unspecified laterality Lung location: unspecified part of lung Pneumonia type: due to unspecified organism Qualified Code(s): J18.9 - Pneumonia, unspecified organism (3) HTN (hypertension) Hypertension type: unspecified Qualified Code(s): I10 - Essential (primary) hypertension
--- NOTE | 2020-05-08 16:56 | Neurology Progress Note ---
Date of Service May 08, 2020 Assessment & Plan (1) Peripheral neuropathy: Shirin Sanches is a 59 yo woman w/ PMH of DM c/b neuropathy, depression, HTN, hypothyroidism, RLS, epilepsy on keppra and possible PMR who p/t [facility] with subacute worsening of weakness in the setting of a one year h/o progressive muscle weakness. # Progressive muscle weakness: now improving since being in the hospital. Initial CK elevated to 352 but repeat testing has all been WNL. Aldolase pending. ESR/CRP elevated but she does have DM which complicates the picture. - muscle biopsy pending - she has been improving while in the hospital. Recommend that she gets to rehab as soon as possible as EMG will be more helpful in determining cause of weakness. - recommend outpatient EMG to help determine diagnosis - follow up with Dr Andres Thank you for this interesting consult. Plan of care discussed with primary team. Please call or text with questions. (2) Lumbar radicular pain: (3) Hypothyroidism: (4) Hx of decompression of ulnar nerve: Admission and Anticipated Discharge Date Admission Date: April 30, 2020 Subjective NAEs overnight. Feels like symptoms have been slowly improving. Mainly confined to her BUEs. Review of Systems Review of Systems: 14 point review of systems completed and negative except as in HPI. Results & Data ([facility]) Vital Signs (Past 12 Hours) Vital Signs Temp Pulse Resp BP BP Pulse Ox 05/08/20 15:57 37.2 C 78 19 164/89 H 93 05/08/20 07:14 36.7 C 64 18 170/77 H 98 Exam (Neuro) Physical Exam: General Exam: GEN: NAD, sitting in bed. HEENT: No conjunctival injection, no rhinorrhea. CV: RRR, no peripheral edema PULM: Nonlabored respirations on room air. Neuro Exam: MS: Awake and Alert. Oriented to person, place, and date. Speech fluent and appropriate without dysarthria or paraphasic errors. Language intact including naming, comprehension, repetition. Cognition and memory grossly intact. Attention intact. No neglect. CN: Visual estrada full. PERRLA OU. EOMI without nystagmus. Facial sensation intact to LT. Facial muscles full and symmetric. Hearing intact to conversation. Uvula midline with symmetric palatal elevation. Shoulder shrug normal. Tongue midline. MOTOR: Normal bulk and tone. No pronator drift. BUE strength 5-/5 at deltoids, biceps, triceps, wrist flexors and extensors, and hand grasp bilaterally. BLE strength 5-/5 at iliopsoas, hamstrings, quadriceps, tibialis anterior, and gastrocnemius bilaterally. REFLEXES: 1+ at biceps, triceps, brachioradialis, trace patella and absent Achilles bilaterally. Flexor plantar responses bilaterally. SENSORY: Intact to LT without extinction to double simultaneous stimuli. Vibration diminished in BLEs up to the knees. COORDINATION: No dysmetria or ataxia on [id number] bilaterally. Normal Rob bilaterally. GAIT: deferred given physical status PG Care Time/CCT Total # of Minutes Spent Total Time Spent with Patient: Total time spent is greater than 50% in coordination of care (as documented) at patient's floor/unit and/or counseling patient: Coding Level of Care Code 74007 Subseq Hosp Care Lvl 3 Diagnoses Peripheral neuropathy G62.9 Lumbar radicular pain M54.16 Hypothyroidism E03.9 Hx of decompression of ulnar nerve Z98.890
[2020-05-08] MEDS: rOPINIRole HCL 1 MG TABLET PO SCH (21:20)
[2020-05-08] MEDS: MAGNESIUM OXIDE 400 MG TAB PO SCH (21:20)
[2020-05-08 21:22] LABS: Acetylcholine Recep Modulating 17; Acetylcholine Recept Blocking <15 (<15); Anti Cardiolipin Ab IgG <14 GPL; Anti Cardiolipin Ab IgM 19 MPL; Anti Nuclear Antibody Screen NEGATIVE (NEGATIVE); Anti-Cardiolipin Ab IgA <11 APL; Anti-Centromere Ab <1.0 NEG AI (<1.0 NEG); Anti-SS-A <1.0 NEG AI (<1.0 NEG); Anti-SS-B <1.0 NEG AI (<1.0 NEG); Chromatin Antibody <1.0 NEG AI (<1.0 NEG); Complement C3 172 mg/dL (83-193); DNA ds Crithidia NEGATIVE (NEGATIVE); Microsomal Ab 2 IU/mL (<9); RNP Antibody <1.0 NEG AI (<1.0 NEG); Receptor Binding Ab <0.30 nmol/L; Scleroderma Anti Scl-70 Ab <1.0 NEG AI (<1.0 NEG); Sm Antibody <1.0 NEG AI (<1.0 NEG)
[2020-05-09 05:59] LABS: Hematocrit (blood only) 42.8 % (37-47); Hemoglobin 13.8 g/dL (12.0-16.0); Mean Corpuscular Hemoglobin 29.2 pg (25-34); Mean Corpuscular Hgb Conc 32.2 g/dL (32-36); Mean Corpuscular Volume 90.7 fL (80-100); Mean Platelet Volume 11.8 fL (7.4-10.4); Platelet Count 229 K/uL (130-400); RDW Coefficient of Variation 14.3 % (11.5-14.5); RDW Standard Deviation 47.2 fL (36.4-46.3); Red Blood Count 4.72 M/uL (4.2-5.4)
[2020-05-09] MEDS: LEVOTHYROXINE SODIUM 25 MCG TABLET PO SCH (06:09)
[2020-05-09 06:22] LABS: BUN Creatinine Ratio 22.6 (10-20); Calcium 9.2 mg/dl (8.5-10.1); Creatinine Clr Calc Pharmacy 69.8 ml/min; Est GFR (African American) 70.4; Est GFR (Non-African American) 60.8; Potassium 3.4 mmol/L (3.5-5.1)
[2020-05-09] MEDS ORDERED: POTASSIUM CHLORIDE 20 MEQ/15 ML UDC PO STA (08:34)
[2020-05-09] MEDS: CYANOCOBALAMIN 500 MCG TABLET (VITAMIN B-12) PO SCH (09:08)
[2020-05-09] MEDS: DULoxetine HCL 60 MG CAP PO SCH (09:08)
[2020-05-09] MEDS: lisinopril 40 MG TAB PO SCH (09:08)
[2020-05-09] MEDS: guaiFENesin 600 MG TABCR PO SCH ×2 (09:09→20:37)
[2020-05-09] MEDS: METOPROLOL TARTRATE 25 MG TAB PO SCH ×2 (09:09→20:37)
[2020-05-09] MEDS: CHOLECALCIFEROL 1,000 UNITS 25 MCG TAB PO SCH (09:09)
[2020-05-09] MEDS: DOCUSATE SODIUM/SENNA 50/8.6MG TAB PO SCH (09:09)
[2020-05-09] MEDS: predniSONE 20 MG TAB PO SCH (09:10)
[2020-05-09] MEDS: GABAPENTIN 300 MG CAP PO SCH (09:10)
[2020-05-09] MEDS: levETIRAcetam 500 MG TAB PO SCH ×2 (09:10→20:37)
[2020-05-09] MEDS: LIDOCAINE 5% 1 PATCH TD SCH (09:11)
[2020-05-09] MEDS: ENOXAPARIN INJ 40 MG/0.4 ML SYR SQ SCH (09:11)
[2020-05-09] MEDS: oxyCODONE HCL IR 5 MG TAB (IMMEDIATE RELEASE) PO PRN ×2 (10:35→21:35)
--- NOTE | 2020-05-09 19:26 | Hospitalist Progress Note ---
Date of Service May 09, 2020 Assessment & Plan (1) Weakness: * Considered to possibly be inflammatory, concerning for inflammatory myopathy vs PMR vs myasthenia, metabolic encephalopathy, toxic encephalopathy(elevated Keppra level) * attempting steroids, pending muscle biopsy results - result will take 3 weeks and the results will go to Dr. Garcia and a copy will be faxed to our lab who will upload it like a dictated pathology report * LP on 05/03 with elevated protein in her CSF without signs of infection. elevated CSF protein can occur in other immune related conditions and can also occur in uncontrolled hypertension which patient was suffering from earlier in her admission and possibly preadmission * pending anti -Jo1, anti SACK CLEANER, anti synthetase. * Started prednisone 60mg PO 05/03 following muscle biopsy/LP - improvement in strength though slow going. * * Procal, ferritin, LDH wnl * CK was 352 on admission * ECHO without vegetation * Lyme negative. biofiore negative, covid negative * Keppra level elevated 51.8 and keppra was decreased to 500mg BID --unclear how this impacts * Urine Cx negative * BCx NO GROWTH- final * CT Head negative * MRI Brain/Cervical Spine ordered, Brain no acute abnormality, scattered microangiopathic changes, cervical spine normal chord morphology multilevel spondylosis, does have moderate to severe foraminal stenosis c3-6 - discussed with ortho and no indication for surgical intervention * pending SPEP, myasthenia labs, BRIAN 12, aldolase, acetylcholine labs * Speech, PT/OT * Per neurology - rec patient should discharge to rehab as soon as possible and complete EMG and further workup outpatient (2) UTI (urinary tract infection): * ->100,000 Klebsiella pneumonia 8 colonies growing, resistant to ampicillin, nitrofurantoin, tetracycline - fax being sent from [facility] for chart, confirmed over the phone. * IV Levaquin completed course * UC no growth, bc ngtd (3) Pneumonia: * Possible as per CXR-- R basilar parenchymal opacities, statistically atelectatic although infectious/inflammatory could appear similar * COVID negative. Biofire negative * Abx course completed (4) HTN (hypertension): * No hx of such, BP significantly elevated here - some improvement today * Pt reports pain in back as primary issues as well as the R shoulder blade region - this may be related to possible pneumonia. * Increased lisinopril to 40mg daily in am 12/8 * continue metoprolol * Hydralazine prn (5) Hypothyroidism: * TSH 2.210 * Continue levothyroxine 25 mcg daily (6) Seizure disorder: * Last seizure like activity was approximately 3 years ago per patient, spent 1 week in continuous EEG unit at that time without findings other than one abnormal EEG. Follows with Dr. Borja in neurology as outpatient routinely * SEED TECHNICIAN Keppra 2000 mg * Keppra level elevated as above -- reduced dose and continuing with 500mg BID after discussion with Dr. Anrdes * Neuro consult following (7) Obesity (BMI 30-39.9): * BMI of 39.7, diet encouraged with poor ability to exercise (8) Restless leg: * May continue requip 2 mg po HS (9) Peripheral neuropathy: * Cont gabapentin mg qam, cymbalta 60 mg qam * Bilateral up to level of mid-crystal on exam * B12 elevated, folate wnl * Oxycodone prn (10) Sepsis: -secondary to UTI/pneumonia/inflammatory myopathy -Tachycardic with lactic >2 with repeat normal after 500cc NSS evening 05/01 (11) Vitamin D deficiency: * Cont supplementation DVT proph: * teds, lovenox subq Dispo: PT/OT consults for profound progressive weakness --> rec rehab. Referrals sent for SNF Admission and Anticipated Discharge Date Admission Date: April 30, 2020 Supervising Physician Co-Signing Physician Notes chart reviewed and case d/w S Do AGUIRRE. agree w above Subjective Ms. Sanches continues to feel stronger every day though her overall picture is quite weak. She has chronic back pain but otherwise no complaints. Updated patient's daughter over the phone Review of Systems Constitutional: no fever, no chills and no body aches Respiratory: no cough and no dyspnea Cardiovascular: no chest pain, no dyspnea and no palpitations Gastrointestinal: no abdominal pain, no nausea and no vomiting Genitourinary: no dysuria and no urinary hesitancy Musculoskeletal: + back pain; no joint pain Integumentary: no rash Physical Exam Physical Exam: General: no distress Eyes: normal inspection, PERLL Respiratory: chest non tender, clear to auscultation, normal breath sounds, no respiratory distress, no accessory muscle use Cardiac: regular rate and rhythm, no rub or gallop, no murmur, no edema, no jvd GI/: active bowel sounds, no abd pain or tenderness, soft, non distended Extremities: normal range of motion, normal strength, non tender Neuro/Psych: alert and oriented x 3, normal mood and affect Skin: normal color, dry Results & Data Results & Data ([facility]) Vital Signs (Past 12 Hours) Vital Signs Temp Pulse Resp BP Pulse Ox 05/09/20 15:38 37.1 C 77 18 151/81 H 90 PG Care Time/CCT Total # of Minutes Spent Total Time Spent with Patient: Total time spent is greater than 50% in coordination of care (as documented) at patient's floor/unit and/or counseling patient: Coding Level of Care Code 97944 Subseq Hosp Care Lvl 2 Diagnoses Weakness R53.1 UTI (urinary tract infection) N39.0 Hematuria presence: without hematuria Urinary tract infection type: site unspecified Pneumonia J18.9 Laterality: unspecified laterality Lung location: unspecified part of lung Pneumonia type: due to unspecified organism HTN (hypertension) I10 Hypertension type: unspecified Hypothyroidism E03.9 Seizure disorder G40.909 Obesity (BMI 30-39.9) E66.9 Restless leg G25.81 Peripheral neuropathy G62.9 Sepsis A41.9 Vitamin D deficiency E55.9 (1) UTI (urinary tract infection) Hematuria presence: without hematuria Urinary tract infection type: site un specified Qualified Code(s): N39.0 - Urinary tract infection, site not specified (2) HTN (hypertension) Hypertension type: unspecified Qualified Code(s): I10 - Essential (primary) hypertension (3) Pneumonia Laterality: unspecified laterality Lung location: unspecified part of lung Pneumonia type: due to unspecified organism Qualified Code(s): J18.9 - Pneumonia, unspecified organism
[2020-05-09] MEDS: MAGNESIUM OXIDE 400 MG TAB PO SCH (20:37)
[2020-05-09] MEDS: rOPINIRole HCL 1 MG TABLET PO SCH (20:37)
[2020-05-10] MEDS: LEVOTHYROXINE SODIUM 25 MCG TABLET PO SCH (05:46)
[2020-05-10 06:23] LABS: Hematocrit (blood only) 43.7 % (37-47); Hemoglobin 14.1 g/dL (12.0-16.0); Mean Corpuscular Hemoglobin 29.4 pg (25-34); Mean Corpuscular Hgb Conc 32.3 g/dL (32-36); Mean Platelet Volume 11.9 fL (7.4-10.4); Platelet Count 254 K/uL (130-400); RDW Coefficient of Variation 14.6 % (11.5-14.5); RDW Standard Deviation 48.6 fL (36.4-46.3); White Blood Count 13.72 K/uL (4.8-10.8)
[2020-05-10 06:45] LABS: BUN Creatinine Ratio 28.4 (10-20); Calcium 9.3 mg/dl (8.5-10.1); Creatinine Clr Calc Pharmacy 70.5 ml/min; Est GFR (African American) 71.3; Est GFR (Non-African American) 61.5
[2020-05-10] MEDS: CYANOCOBALAMIN 500 MCG TABLET (VITAMIN B-12) PO SCH (08:38)
[2020-05-10] MEDS: ENOXAPARIN INJ 40 MG/0.4 ML SYR SQ SCH (08:38)
[2020-05-10] MEDS: LIDOCAINE 5% 1 PATCH TD SCH (08:38)
[2020-05-10] MEDS: lisinopril 40 MG TAB PO SCH (08:38)
[2020-05-10] MEDS: CHOLECALCIFEROL 1,000 UNITS 25 MCG TAB PO SCH (08:38)
[2020-05-10] MEDS: GABAPENTIN 300 MG CAP PO SCH (08:39)
[2020-05-10] MEDS: METOPROLOL TARTRATE 25 MG TAB PO SCH ×2 (08:39→21:03)
[2020-05-10] MEDS: DULoxetine HCL 60 MG CAP PO SCH (08:39)
[2020-05-10] MEDS: levETIRAcetam 500 MG TAB PO SCH ×2 (08:39→21:03)
[2020-05-10] MEDS: DOCUSATE SODIUM/SENNA 50/8.6MG TAB PO SCH (08:39)
[2020-05-10] MEDS: predniSONE 20 MG TAB PO SCH (08:39)
[2020-05-10] MEDS: oxyCODONE HCL IR 5 MG TAB (IMMEDIATE RELEASE) PO PRN ×2 (08:49→22:02)
[2020-05-10] MEDS: guaiFENesin 600 MG TABCR PO SCH ×2 (08:50→21:03)
--- NOTE | 2020-05-10 16:25 | Hospitalist Progress Note ---
Date of Service May 10, 2020 Assessment & Plan (1) Weakness: * Considered to possibly be inflammatory, concerning for inflammatory myopathy vs PMR vs myasthenia, metabolic encephalopathy, toxic encephalopathy(elevated Keppra level) * attempting steroids, pending muscle biopsy results - result will take 3 weeks and the results will go to Dr. Garcia and a copy will be faxed to our lab who will upload it like a dictated pathology report * LP on 05/03 with elevated protein in her CSF without signs of infection. elevated CSF protein can occur in other immune related conditions and can also occur in uncontrolled hypertension which patient was suffering from earlier in her admission and possibly preadmission * pending anti -Jo1, anti AUTOMOBILE BRAKE BONDER, anti synthetase. * Started prednisone 60mg PO 05/03 following muscle biopsy/LP - improvement in strength though slow going. * * Procal, ferritin, LDH wnl * CK was 352 on admission * ECHO without vegetation * Lyme negative. biofiore negative, covid negative * Keppra level elevated 51.8 and keppra was decreased to 500mg BID --unclear how this impacts * Urine Cx negative * BCx NO GROWTH- final * CT Head negative * MRI Brain/Cervical Spine ordered, Brain no acute abnormality, scattered microangiopathic changes, cervical spine normal chord morphology multilevel spondylosis, does have moderate to severe foraminal stenosis c3-6 - discussed with ortho and no indication for surgical intervention * pending SPEP, myasthenia labs, BRIAN 12, aldolase, acetylcholine labs * Speech, PT/OT * Per neurology - rec patient should discharge to rehab as soon as possible and complete EMG and further workup outpatient (2) UTI (urinary tract infection): * ->100,000 Klebsiella pneumonia 8 colonies growing, resistant to ampicillin, nitrofurantoin, tetracycline - fax being sent from [facility] for chart, confirmed over the phone. * IV Levaquin completed course * UC no growth, bc ngtd (3) Pneumonia: * Possible as per CXR-- R basilar parenchymal opacities, statistically atelectatic although infectious/inflammatory could appear similar * COVID negative. Biofire negative * Abx course completed (4) HTN (hypertension): * No hx of such, BP significantly elevated here - some improvement today * Pt reports pain in back as primary issues as well as the R shoulder blade region - this may be related to possible pneumonia. * Increased lisinopril to 40mg daily in am 12/8 * continue metoprolol - may need to increase this as well as blood pressures continue to be elevated * Hydralazine prn (5) Hypothyroidism: * TSH 2.210 * Continue levothyroxine 25 mcg daily (6) Seizure disorder: * Last seizure like activity was approximately 3 years ago per patient, spent 1 week in continuous EEG unit at that time without findings other than one abnormal EEG. Follows with Dr. Borja in neurology as outpatient routinely * REBEAMER Keppra 2000 mg * Keppra level elevated as above -- reduced dose and continuing with 500mg BID after discussion with Dr. Andres * Neuro consult following (7) Obesity (BMI 30-39.9): * BMI of 39.7, diet encouraged with poor ability to exercise (8) Restless leg: * May continue requip 2 mg po HS (9) Peripheral neuropathy: * Cont gabapentin mg qam, cymbalta 60 mg qam * Bilateral up to level of mid-crystal on exam * B12 elevated, folate wnl * Oxycodone prn (10) Sepsis: -secondary to UTI/pneumonia/inflammatory myopathy -Tachycardic with lactic >2 with repeat normal after 500cc NSS evening 05/01 (11) Vitamin D deficiency: * Cont supplementation DVT proph: * joceline gutierrez subq Dispo: PT/OT consults for profound progressive weakness --> rec rehab. Referrals sent for SNF Admission and Anticipated Discharge Date Admission Date: April 30, 2020 Supervising Physician Co-Signing Physician Notes chart reviewed and case d/w S Do AGUIRRE. agree w above Subjective Patient was sitting up in bed today, scrolling on her tablet, able to turn for me when I needed to listen to her lungs. She is having some chronic back pain but otherwise has no complaints. Physical Exam Constitutional: WD/WN, vitals as above Respiratory: normal respiratory effort, lungs clear to auscultation Cardiovascular: RRR, no murmur, no edema Gastrointestinal (Abdomen): normal bowel sounds, soft, nontender, no hepatosplenomegaly Musculoskeletal: Extremities: extremities normal to inspection generalized weakness Skin: no rashes, warm and dry Neurologic: moves all extremities and awake Results & Data Results & Data ([facility]) Vital Signs (Past 12 Hours) Vital Signs Temp Pulse Resp BP Pulse Ox 05/10/20 15:58 36.3 C L 72 16 142/84 H 94 05/10/20 07:00 36.7 C 72 16 164/84 H 94 PG Care Time/CCT Total # of Minutes Spent Total Time Spent with Patient: Total time spent is greater than 50% in coordination of care (as documented) at patient's floor/unit and/or counseling patient: Coding Level of Care Code 93703 Subseq Hosp Care Lvl 2 Diagnoses Weakness R53.1 UTI (urinary tract infection) N39.0 Hematuria presence: without hematuria Urinary tract infection type: site unspecified Pneumonia J18.9 Laterality: unspecified laterality Lung location: unspecified part of lung Pneumonia type: due to unspecified organism HTN (hypertension) I10 Hypertension type: unspecified Hypothyroidism E03.9 Seizure disorder G40.909 Obesity (BMI 30-39.9) E66.9 Restless leg G25.81 Peripheral neuropathy G62.9 Sepsis A41.9 Vitamin D deficiency E55.9 (1) UTI (urinary tract infection) Hematuria presence: without hematuria Urinary tract infection type: site unspecified Qualified Code(s): N39.0 - Urinary tract infection, site not specified (2) HTN (hypertension) Hypertension type: unspecified Qualified Code(s): I10 - Essential (primary) hypertension (3) Pneumonia Laterality: unspecified laterality Lung location: unspecified part of lung Pneumonia type: due to unspecified organism Qualified Code(s): J18.9 - Pneumonia, unspecified organism
[2020-05-10] MEDS: rOPINIRole HCL 1 MG TABLET PO SCH (21:03)
[2020-05-10] MEDS: MAGNESIUM OXIDE 400 MG TAB PO SCH (21:03)
[2020-05-10] MEDS: NYSTATIN CR 15 GM TUBE EXT SCH (21:41)
[2020-05-11] MEDS: LEVOTHYROXINE SODIUM 25 MCG TABLET PO SCH (05:25)
[2020-05-11 07:45] LABS: Mean Corpuscular Hemoglobin 29.3 pg (25-34); Mean Corpuscular Hgb Conc 31.8 g/dL (32-36); Mean Corpuscular Volume 92.1 fL (80-100); Mean Platelet Volume 12.5 fL (7.4-10.4); Platelet Count 275 K/uL (130-400); RDW Coefficient of Variation 14.8 % (11.5-14.5); RDW Standard Deviation 49.6 fL (36.4-46.3); Red Blood Count 4.78 M/uL (4.2-5.4); White Blood Count 14.18 K/uL (4.8-10.8)
[2020-05-11 07:46] LABS: BUN Creatinine Ratio 27.3 (10-20); Calcium 9.5 mg/dl (8.5-10.1); Creatinine Clr Calc Pharmacy 64.6 ml/min; Est GFR (African American) 64.2; Est GFR (Non-African American) 55.4
[2020-05-11] MEDS: lisinopril 40 MG TAB PO SCH (09:27)
[2020-05-11] MEDS: LIDOCAINE 5% 1 PATCH TD SCH (09:27)
[2020-05-11] MEDS: ENOXAPARIN INJ 40 MG/0.4 ML SYR SQ SCH (09:27)
[2020-05-11] MEDS: guaiFENesin 600 MG TABCR PO SCH ×2 (09:28→21:28)
[2020-05-11] MEDS: DULoxetine HCL 60 MG CAP PO SCH (09:28)
[2020-05-11] MEDS: DOCUSATE SODIUM/SENNA 50/8.6MG TAB PO SCH (09:28)
[2020-05-11] MEDS: levETIRAcetam 500 MG TAB PO SCH ×2 (09:28→21:28)
[2020-05-11] MEDS: GABAPENTIN 300 MG CAP PO SCH (09:28)
[2020-05-11] MEDS: METOPROLOL TARTRATE 25 MG TAB PO SCH ×2 (09:28→21:26)
[2020-05-11] MEDS: CYANOCOBALAMIN 500 MCG TABLET (VITAMIN B-12) PO SCH (09:28)
[2020-05-11] MEDS: CHOLECALCIFEROL 1,000 UNITS 25 MCG TAB PO SCH (09:28)
[2020-05-11] MEDS: predniSONE 20 MG TAB PO SCH (09:28)
[2020-05-11] MEDS: NYSTATIN CR 15 GM TUBE EXT SCH ×2 (09:29→21:29)
[2020-05-11] MEDS: oxyCODONE HCL IR 5 MG TAB (IMMEDIATE RELEASE) PO PRN ×2 (09:39→21:37)
--- NOTE | 2020-05-11 13:25 | Hospitalist Progress Note ---
Date of Service May 11, 2020 Assessment & Plan (1) Weakness: * Considered to possibly be inflammatory, concerning for inflammatory myopathy vs PMR vs myasthenia, metabolic encephalopathy, toxic encephalopathy(elevated Keppra level) * attempting steroids, pending muscle biopsy results - result will take 3 weeks and the results will go to Dr. Garcia and a copy will be faxed to our lab who will upload it like a dictated pathology report * LP on 05/03 with elevated protein in her CSF without signs of infection. elevated CSF protein can occur in other immune related conditions and can also occur in uncontrolled hypertension which patient was suffering from earlier in her admission and possibly preadmission * pending anti -Jo1, anti PROCESS ENG, anti synthetase. * Started prednisone 60mg PO 05/03 following muscle biopsy/LP - improvement in strength though slow going. * * Procal, ferritin, LDH wnl * CK was 352 on admission * ECHO without vegetation * Lyme negative. biofiore negative, covid negative * Keppra level elevated 51.8 and keppra was decreased to 500mg BID --unclear how this impacts * Urine Cx negative * BCx NO GROWTH- final * CT Head negative * MRI Brain/Cervical Spine ordered, Brain no acute abnormality, scattered microangiopathic changes, cervical spine normal chord morphology multilevel spondylosis, does have moderate to severe foraminal stenosis c3-6 - discussed with ortho and no indication for surgical intervention * pending SPEP, myasthenia labs, BRIAN 12, aldolase, acetylcholine labs * Speech, PT/OT * Per neurology - rec patient should discharge to rehab as soon as possible and complete EMG and further workup outpatient. She will continue steroids until follow up with Dr. Andres (2) UTI (urinary tract infection): * ->100,000 Klebsiella pneumonia 8 colonies growing, resistant to ampicillin, nitrofurantoin, tetracycline - fax being sent from [facility] for chart, confirmed over the phone. * IV Levaquin completed course * UC no growth, bc ngtd (3) Pneumonia: * Possible as per CXR-- R basilar parenchymal opacities, statistically atelectatic although infectious/inflammatory could appear similar * COVID negative. Biofire negative * Abx course completed (4) HTN (hypertension): * No hx of such, BP significantly elevated here - some improvement * Pt reports pain in back as primary issues as well as the R shoulder blade emily on - this may be related to possible pneumonia. * Increased lisinopril to 40mg daily in am 12/8 * continue metoprolol - may need to increase this as well as blood pressures continue to be elevated * Hydralazine prn (5) Hypothyroidism: * TSH 2.210 * Continue levothyroxine 25 mcg daily (6) Seizure disorder: * Last seizure like activity was approximately 3 years ago per patient, spent 1 week in continuous EEG unit at that time without findings other than one abnormal EEG. Follows with Dr. 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 Andres * Neuro consult following (7) Obesity (BMI 30-39.9): * BMI of 39.7, diet encouraged with poor ability to exercise (8) Restless leg: * May continue requip 2 mg po HS (9) Peripheral neuropathy: * Cont gabapentin mg qam, cymbalta 60 mg qam * Bilateral up to level of mid-crystal on exam * B12 elevated, folate wnl * Oxycodone prn (10) Sepsis: -secondary to UTI/pneumonia/inflammatory myopathy -Tachycardic with lactic >2 with repeat normal after 500cc NSS evening 05/01 (11) Vitamin D deficiency: * Cont supplementation DVT proph: * joceline gutierrez subq Dispo: PT/OT consults for profound progressive weakness --> rec rehab. Referrals sent for SNF and [facility] Admission and Anticipated Discharge Date Admission Date: April 30, 2020 Supervising Physician Co-Signing Physician Notes chart reviewed and case d/w S Do AGUIRRE. agree w above Subjective No complaints, feeling well Review of Systems Constitutional: no fever, no chills and no body aches Respiratory: no cough and no dyspnea Cardiovascular: no chest pain and no palpitations Gastrointestinal: no abdominal pain and no early satiety Genitourinary: no dysuria and no urinary hesitancy Musculoskeletal: no back pain and no joint pain Integumentary: no rash Physical Exam Physical Exam: General: no distress Eyes: normal inspection, PERLL Respiratory: chest non tender, clear to auscultation, normal breath sounds, no respiratory distress, no accessory muscle use Cardiac: regular rate and rhythm, no rub or gallop, no murmur, no edema, no jvd GI/: active bowel sounds, no abd pain or tenderness, soft, non distended Extremities: normal range of motion, generalized weakness, non tender Neuro/Psych: alert and oriented x 3, normal mood and affect Skin: normal color, dry Results & Data Results & Data ([facility]) Vital Signs (Past 12 Hours) Vital Signs Temp Pulse Resp BP Pulse Ox 05/11/20 08:07 36.9 C 70 16 155/85 H 94 PG Care Time/CCT Total # of Minutes Spent Total Time Spent with Patient: Total time spent is greater than 50% in coordination of care (as documented) at patient's floor/unit and/or counseling patient: Coding Level of Care Code 63745 Subseq Hosp Care Lvl 2 Diagnoses Weakness R53.1 UTI (urinary tract infection) N39.0 Hematuria presence: without hematuria Urinary tract infection type: site unspecified Pneumonia J18.9 Laterality: unspecified laterality Lung location: unspecified part of lung Pneumonia type: due to unspecified organism HTN (hypertension) I10 Hypertension type: unspecified Hypothyroidism E03.9 Seizure disorder G40.909 Obesity (BMI 30-39.9) E66.9 Restless leg G25.81 Peripheral neuropathy G62.9 Sepsis A41.9 Vitamin D deficiency E55.9 (1) UTI (urinary tract infection) Hematuria presence: without hematuria Urinary tract infection type: site unspecified Qualified Code(s): N39.0 - Urinary tract infection, site not specified (2) HTN (hypertension) Hypertension type: unspecified Qualified Code(s): I10 - Essential (primary) hypertension (3) Pneumonia Laterality: unspecified laterality Lung location: unspecified part of lung Pneumonia type: due to unspecified organism Qualified Code(s): J18.9 - Pneumonia, unspecified organism
[2020-05-11] MEDS: rOPINIRole HCL 1 MG TABLET PO SCH (21:29)
[2020-05-11] MEDS: MAGNESIUM OXIDE 400 MG TAB PO SCH (21:29)
[2020-05-12] MEDS: LEVOTHYROXINE SODIUM 25 MCG TABLET PO SCH (05:52)
[2020-05-12 07:43] LABS: Hematocrit (blood only) 42.4 % (37-47); Hemoglobin 13.1 g/dL (12.0-16.0); Mean Corpuscular Hemoglobin 29.2 pg (25-34); Mean Corpuscular Hgb Conc 30.9 g/dL (32-36); Mean Corpuscular Volume 94.4 fL (80-100); Mean Platelet Volume 12.2 fL (7.4-10.4); Platelet Count 244 K/uL (130-400); RDW Coefficient of Variation 14.9 % (11.5-14.5); Red Blood Count 4.49 M/uL (4.2-5.4); White Blood Count 14.96 K/uL (4.8-10.8)
[2020-05-12 08:20] LABS: BUN Creatinine Ratio 27.5 (10-20); Creatinine Clr Calc Pharmacy 59.6 ml/min; Est GFR (African American) 58.2; Est GFR (Non-African American) 50.3; Potassium 3.8 mmol/L (3.5-5.1)
[2020-05-12] MEDS: oxyCODONE HCL IR 5 MG TAB (IMMEDIATE RELEASE) PO PRN (08:48)
[2020-05-12] MEDS: NYSTATIN CR 15 GM TUBE EXT SCH (08:49)
[2020-05-12] MEDS: ENOXAPARIN INJ 40 MG/0.4 ML SYR SQ SCH (08:49)
[2020-05-12] MEDS: DOCUSATE SODIUM/SENNA 50/8.6MG TAB PO SCH (08:49)
[2020-05-12] MEDS: GABAPENTIN 300 MG CAP PO SCH (08:49)
[2020-05-12] MEDS: METOPROLOL TARTRATE 25 MG TAB PO SCH (08:49)
[2020-05-12] MEDS: LIDOCAINE 5% 1 PATCH TD SCH (08:49)
[2020-05-12] MEDS: predniSONE 20 MG TAB PO SCH (08:49)
[2020-05-12] MEDS: CYANOCOBALAMIN 500 MCG TABLET (VITAMIN B-12) PO SCH (08:50)
[2020-05-12] MEDS: CHOLECALCIFEROL 1,000 UNITS 25 MCG TAB PO SCH (08:50)
[2020-05-12] MEDS: guaiFENesin 600 MG TABCR PO SCH (08:50)
[2020-05-12] MEDS: DULoxetine HCL 60 MG CAP PO SCH (08:50)
[2020-05-12] MEDS: lisinopril 40 MG TAB PO SCH (08:50)
[2020-05-12] MEDS: levETIRAcetam 500 MG TAB PO SCH (09:23)
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
== END 2020-05-12 13:55 | DRG 500 ==
LOC: 3W 08:28 → ED 08:28 → SUATTDRO 11:12 → 3W 12:14 → SUATTDRO 04-30 07:44

== ENCOUNTER 2023-06-02 08:17 | Inpatient (IN) ==
--- NOTE | 2023-05-01 08:44 | PAT Medication Instructions ---
Medication Instructions Date of Service May 01, 2023 Home Medications cholecalciferol (vitamin D3) 50 mcg (2,000 unit) capsule (Vitamin D3) 50 mcg PO QAM cyanocobalamin (vitamin B-12) 1,000 mcg sublingual tablet 1,000 mcg sublingual UD levothyroxine 25 mcg tablet 25 mcg PO QAM folic acid 1 mg tablet 1 mg PO QAM ibuprofen 800 mg tablet 800 mg PO Q6H PRN Pain leflunomide 10 mg tablet 10 mg PO QAM ASK your surgeon for instructions ibuprofen 800 mg tablet 800 mg PO Q6H PRN Pain ASK your prescriber and surgeon leflunomide 10 mg tablet 10 mg PO QAM DO NOT take the morning of surgery cholecalciferol (vitamin D3) 50 mcg (2,000 unit) capsule (Vitamin D3) 50 mcg PO QAM cyanocobalamin (vitamin B-12) 1,000 mcg sublingual tablet 1,000 mcg sublingual UD folic acid 1 mg tablet 1 mg PO QAM Take morning of surgery With a small sip of water, OTHERWISE NOTHING TO EAT OR DRINK AFTER MIDNIGHT: levothyroxine 25 mcg tablet 25 mcg PO QAM Other Notes If you have any questions please call us at [phone] or [phone] or [phone] or [phone]
--- NOTE | 2023-05-06 14:06 | Anesthesiology Consultation ---
Date of Service May 06, 2023 Assessment & Plan (1) Encounter for pre-operative examination: Infectious disease screening: Per assessment on 05/06/23: No known infectious disease contacts or current infectious disease symptoms. No noted recent Covid positive test. Chart Review Chart Review: Acceptable Risk for Surgery and Patient seen in Pre Admission Testing Teaching & Discussion Pre-Anesthesia Teaching/Discussion Notes: Instructed NPO after midnight before surgery,except medications with 15 cc of water. Medication instructions provided according to the PAT guidelines. History Surgery Operation Date: 06/02/23 07:45 Proposed Procedures p L4-S1 Decompression and Fusion, Spinal Cord Monitoring - Bart Romero DO Height/Weight Height: 5 ft 4 in Weight: 85.5 kg Allergies Allergy/AdvReac Type Severity Reaction Status Date / Time No Known Allergies Allergy Verified 04/30/23 15:44 Medications Home Medications Medication Instructions Recorded Confirmed Last Taken cholecalciferol (vitamin D3) 50 50 mcg PO QAM 04/27/20 04/30/23 04/26/20 mcg (2,000 unit) capsule (Vitamin D3) cyanocobalamin (vitamin B-12) 1,000 mcg sublingual UD 04/27/20 04/30/23 04/26/20 1,000 mcg sublingual tablet levothyroxine 25 mcg tablet 25 mcg PO QAM 04/27/20 04/30/23 04/26/20 folic acid 1 mg tablet 1 mg PO QAM 04/30/23 04/30/23 Unknown ibuprofen 800 mg tablet 800 mg PO Q6H PRN Pain 04/30/23 04/30/23 Unknown leflunomide 10 mg tablet 10 mg PO QAM 04/30/23 04/30/23 Unknown Past Medical History Medical History Osteoarthritis Rheumatoid arthritis Osteopenia Obesity Lumbar radicular pain Depression HTN (hypertension) Hypothyroidism Peripheral neuropathy Restless leg hx, no longer on meds Seizure disorder 2 episodes/dizzy spells years ago, no longer on medications Exercise / Class Metabolic Activity III < 4 Walking/Shop/Light housework Past Family History Family History Father , in his 80s pancreatic cancer Cancer Pancreatic cancer Mother , age 58 of bowel obstruction No problems noted. Past Surgical History Surgical History Hx of section x1 History of esophagogastroduodenoscopy (EGD) Hx of colonoscopy [place] teeth extracted Hx of decompression of ulnar nerve S/P epidural steroid injection Hx of biopsy Right arm deltoid muscle biopsy (05/03/20): MAC at [facility] History of hysterectomy History of carpal tunnel surgery of right wrist History of carpal tunnel surgery of left wrist History of cholecystectomy Past Anesthesia History No Hx of Anesthesia Complications and No Family Hx of Anesthesia Complications History of PONV No Hx of PONV and No Hx of Motion Sickness Social History Smoking Status: Never smoker Do You Dip or Chew Tobacco: No Hx Alcohol Use: No Hx Substance Use: No substance use type: does not use Review of Systems Patient denies chest pain, shortness of breath, fever, chills, cough, wheezing, palpitations. Physical Exam Vital Signs VITALS BP 126/74 P 78 TEMP 98.2 SP02 99%RA RESP 18 PHYSICAL Full cervical extension range of motion. Full TMJ range of motion. TMD 4 finger breaths Mallampati Score 3 Dentition: upper/lower full dentures Lungs: clear throughout to auscultation Cardiac: regular rate and rhythm, no murmurs noted Spine: normal Carotid arteries: negative bruit Extremities: no LE edema Lab Results Anesthesia Preop Results Results Anesthesia Widget: 2 WBC 5.14 K/ul (4.8-10.8) 05/06/23 Hgb 13.1 g/dl (12.0-16.0) 05/06/23 Hct 40.4 % (37.0-47.0) 05/06/23 Plt 174 K/uL (130-400) 05/06/23 Na 142 mmol/L (136-145) 05/06/23 K 4.0 mmol/L (3.5-5.1) 05/06/23 Cl 109 mmol/L (98-107) H 05/06/23 CO2 27 mmol/L (21-32) 05/06/23 BUN 18 mg/dl (6-23) 05/06/23 Creat 1.04 mg/dl (0.6-1.2) 05/06/23 Glucose Level 78 mg/dl (70-99(Fasting)) 05/06/23 PT 10.5 Seconds (9.0-12.0) 05/06/23 PTT 27 Seconds (21-31) 05/06/23 INR 1.0 (0.9-1.1) 05/06/23 Urine Color Yellow 05/06/23 Urine Appearance Clear (Clear) 05/06/23 Urine pH 5.5 (4.5-7.5) 05/06/23 Urine Specific [place] 1.023 (1.000-1.030) 05/06/23 Urine Protein Negative (Negative) 05/06/23 Urine Glucose (UA) Negative (Negative) 05/06/23 Urine Ketones Negative (Negative) 05/06/23 Urine Blood Negative (Negative) 05/06/23 Urine Nitrite Negative (Negative) 05/06/23 Urine Bilirubin Negative (Negative) 05/06/23 Urine Urobilinogen Negative (Negative) 05/06/23 Urine Leukocyte Esterase Negative (Negative) 05/06/23 Blood Type O Positive 05/06/23 Antibody Screen NEGATIVE 05/06/23 Testing Electrocardiogram Date: 05/06/23 NSR at 64bpm. "Normal ECG" Chest X-Ray Date: 05/06/23 FINDINGS: No lines and tubes are seen. Calcified aortic knob is seen. The lungs are clear. No evidence of pleural effusion or pneumothorax. IMPRESSION: No acute chest disease. Echocardiogram Date: 05/01/20 EF 55-60%. Proximal septal thickening is noted. Mild cLVH. Grade I DD. LV wall motion is normal. No significant valvular disease. Cervical Spine Date: 05/06/23 FINDINGS: The cervical spine is visualized from C1 through the superior endplate of T1. There is no fracture. There is 2 mm of anterolisthesis of C4 on C5, unchanged. This reduces on extension views only but remains unchanged on the flexion views. Straightening of the lower cervical spine. There is moderate to severe disc space narrowing at C5-C6 and C6-C7 with endplate osteophytes. There is mild disc space narrowing at C7-T1. Moderate facet degenerative changes seen throughout the cervical spine. Prevertebral soft tissues and the atlantodens interval are intact. IMPRESSION: No fractures within the cervical spine. Degenerative changes as described above. There is 2 mm of anterolisthesis of C4 on C5, unchanged. This reduces on extension views only but remains unchanged on the flexion views.
[~2023-06-02 08:17] MED LIST: ACETAMINOPHEN 500 MG TAB PO SCH; CeleBREX 200 MG CAP PO SCH; GABAPENTIN 600 MG DOSE PO SCH; LR 15ML/HR IV SCH; LR 60ML/HR IV SCH; ceFAZolin 2000MG 2,000 MG/15 ML SYR IV SCH
[2023-06-02] MEDS ORDERED: MIDAZOLAM HCL 1 MG/ML 2ML VIAL ONE (09:11)
[2023-06-02] MEDS ORDERED: fentaNYL citrate PF 100 MCG/2 ML VIAL ONE ×2 (09:11→10:37)
[2023-06-02] MEDS ORDERED: ATROPINE SULFATE 0.1 MG/ML 10ML SYR IV PRN (09:17)
[2023-06-02] MEDS ORDERED: ePHEDrine sulfate 50 MG/ML AMP IV PRN (09:17)
[2023-06-02] MEDS ORDERED: FLUMAZENIL 0.1 MG/1 ML 10 ML VIAL IV PRN (09:17)
[2023-06-02] MEDS ORDERED: PROMETHAZINE HCL 12.5 MG in SODIUM CHLORIDE 0.9% 50 ML IV PRN ×2 (09:17→14:22)
[2023-06-02] MEDS ORDERED: fentaNYL citrate PF 100 MCG/2 ML VIAL IV PRN (09:17)
[2023-06-02] MEDS ORDERED: LABETALOL HCL IV 5 MG/ML 20ML IV PRN (09:17)
[2023-06-02] MEDS ORDERED: ONDANSETRON INJ 2 MG/ML 2 ML VIAL IV PRN ×2 (09:17→14:22)
[2023-06-02] MEDS ORDERED: NALOXONE HCL 0.4 MG/1 ML VIAL/CARP IV PRN ×2 (09:17→14:22)
[2023-06-02] MEDS ORDERED: HYDROmorphone INJ 1 MG/ML SYRINGE IV PRN ×2 (09:17→14:22)
--- NOTE | 2023-06-02 09:30 | History & Physical Bridge Note ---
Date of Service June 02, 2023 History & Physical Bridge Note I have examined the patient, reviewed the History & Physical and in the interval since the performance of the History & Physical I have noted the following changes of clinical significance: no changes noted
--- NOTE | 2023-06-02 09:31 | History & Physical Report ---
Date of Service June 02, 2023 Assessment & Plan (1) Lumbar radicular pain: Plan: Lumbar decompression fusion L4-S1 History of Present Illness Chief Complaint: Back and leg pain Primary Care Provider: Darrell Hancock DO 63-year-old female with chronic persistent back and leg pain. Failing since course of nonoperative care she is here for surgical invention. Allergies Allergy/AdvReac Type Severity Reaction Status Date / Time No Known Allergies Allergy Verified 06/02/23 08:50 Home Medications Medication Instructions Recorded Confirmed Type cholecalciferol (vitamin D3) 50 50 mcg PO QAM 04/27/20 06/02/23 History mcg (2,000 unit) capsule (Vitamin D3) cyanocobalamin (vitamin B-12) 1,000 mcg sublingual UD 04/27/20 06/02/23 History 1,000 mcg sublingual tablet levothyroxine 25 mcg tablet 25 mcg PO QAM 04/27/20 06/02/23 History folic acid 1 mg tablet 1 mg PO QAM 04/30/23 06/02/23 History ibuprofen 800 mg tablet 800 mg PO Q6H PRN Pain 04/30/23 06/02/23 History leflunomide 10 mg tablet 10 mg PO QAM 04/30/23 06/02/23 History Past Med/Surg History Medical History Osteoarthritis Rheumatoid arthritis Osteopenia Obesity Lumbar radicular pain Depression HTN (hypertension) Hypothyroidism Peripheral neuropathy Restless leg hx, no longer on meds Seizure disorder 2 episodes/dizzy spells years ago, no longer on medications Surgical History Hx of section x1 History of esophagogastroduodenoscopy (EGD) Hx of colonoscopy [place] teeth extracted Hx of decompression of ulnar nerve S/P epidural steroid injection Hx of biopsy Right arm deltoid muscle biopsy (05/03/20): MAC at [facility] History of hysterectomy History of carpal tunnel surgery of right wrist History of carpal tunnel surgery of left wrist History of cholecystectomy Family History Father , in his 80s pancreatic cancer Cancer Pancreatic cancer Mother , age 58 of bowel obstruction No problems noted. 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
[2023-06-02] MEDS ORDERED: ceFAZolin 330 MG/ML 1 GM VIAL ONE (09:43)
[2023-06-02] MEDS ORDERED: BUPIVACAINE/EPINEPHRINE 0.25% 1:200,000 30 ML VIAL ONE (09:43)
[2023-06-02] MEDS ORDERED: PROPOFOL IV EMULSION 10 MG/ML 20 ML VIAL IV ONE (10:13)
[2023-06-02] MEDS ORDERED: diphenhydrAMINE 50 MG/ML VIAL ONE (10:13)
[2023-06-02] MEDS ORDERED: ROCURONIUM BROMIDE 10 MG/ML 5 ML VIAL IV ONE (10:13)
[2023-06-02] MEDS ORDERED: LIDOCAINE 2% 2 ML VIAL/AMP(20MG/ML) INFIL ONE (10:13)
[2023-06-02] MEDS ORDERED: DEXAMETHASONE SOD INJ 4 MG/ML VIAL ONE (10:13)
[2023-06-02] MEDS ORDERED: ONDANSETRON INJ 2 MG/ML 2 ML VIAL ONE (10:13)
[2023-06-02] MEDS ORDERED: ePHEDrine sulfate 50 MG/5 ML SYR ONE (10:14)
[2023-06-02] MEDS ORDERED: FLOSEAL HEMOSTATIC MATRIX 10ML TOP ONE (10:22)
[2023-06-02] MEDS ORDERED: SUGAMMADEX SODIUM 200 MG/2 ML VIAL IV ONE (10:38)
--- NOTE | 2023-06-02 12:01 | Operative Report ---
Post Operative Report Pre & Post Diagnosis Operation Date: 06/02/23 10:05 Pre-Op Diagnosis: Lumbar spinal stenosis with neurogenic claudication Post-Op Diagnosis: Same I identified the patient and participated in the time-out.: Yes Procedure Operation Date: 06/02/23 10:05 Actual Procedures #1 lumbar decompression bilaterally facetectomies and foraminotomies L3-L4, L4-5 and L5-S1. #2 posterior spinal fusion L4-S1. #3 placed posterior instrumentation L4-S1. #4 interbody fusion L4-L5 L5-S1. #5 placement of Spira 14 x 26 mm at L4-5 and 13 x 26 mm x 2 at L5-S1. #6 placement locally harvested morselized autograft and posterior gutters. #7 placement of Morpheus interbody space and infuse collagen sponge, with Koros in the posterior lateral gutters. Surgeon Bart Romero, Butt Presser Makenna Rodriguez Estimated Blood Loss 250 Findings See Below The patient is 5 foot 4 weighing over 85 kg with a BMI in excess of 32. The patient's body mass did contribute to significant technical difficulty with positioning exposure the procedure itself. This at least 50% increased operative time. Specimens None Indications This is a 63-year-old female who presents problems diagnosis of failing course of nonoperative care she is here for surgical invention. Description of Procedure Patient was met with identified informed consent obtained. Patient was then taken to the operative suite underwent patient placed in a prone position on the Rickie table on top of the [place] frame. All bony promises well-padded eyes inspected to ensure no external pressure placed upon them. This point lumbar spine is prepped and draped in a sterile fashion. Sharp dissection with the assistance of Bovie cautery form down to exposing the lamina transverse processes of L4-5 and sacral ala bilaterally. From caudal to cephalad fashion complete laminectomy of L5 L4 and partial laminectomy L3 was performed including bilaterally facetectomies and foraminotomies addressing severe spinal stenosis. Pedicle screws were then placed in L4-L5 and S1 levels bilaterally with assistance of fluoroscopy in the process les placed. By way of transforaminal approach on the right and discectomy of L5-S1 was performed endplates guarded to subcortical mean bone and a 13 x 26 mm Spira cage filled with Morpheus tapped in position. Then proceeded to the left transforaminal region at L5-S1 completed the discectomy and plate and secured to subcortical bleeding bone and a 13 x 26 mm spiral cage with Morpheus tapped in position. Then proceeded to L4-L5 and again by way of transforaminal approach on the right at discectomy of L4-5 was performed endplates guided subcortical mean bone and a 14 x 26 mm Spira cage filled with Morpheus tapped in position. The rods were then compressed locked in final position bilaterally. The transverse processes well for L5 and sacral ala burred to subcortical bleeding bone. Infuse collagen sponge, with coarse bone graft placed in the posterior gutters. 15 round YEE drain inserted. The incision was then closed with 1 Vicryl fascia 2-0 Vicryl subcutaneously and 4 Monocryl for final skin closure. Steri-Strips sterile dressings placed. Patient waken taken to PACU stable condition. Please note spinal cord monitoring utilized at the procedure no changes noted. Lastly Makenna Rodriguez was present at the entire surgery involved the patient positioning complex course of the surgery and possible closure. I attest to the content of the Intraoperative Record and any orders documented therein. Any exceptions are noted below.
--- NOTE | 2023-06-02 12:13 | Fluoroscopy Report ---
FL lumbar spine 2-3V CLINICAL HISTORY: [id number] low back pain COMPARISON STUDY: Lumbar spine radiographs 04/29/2020 FLUOROSCOPY TIME: 19.6 seconds FLUOROSCOPY IMAGES: 2 images EXPOSURE DOSE: 14.58 mGy FINDINGS: Posterior interbody les and screw fusion with discectomy changes noted at L4-S1. The hardwa re appears intact. Multilevel spondylitic spurring. No unexpected opaque foreign bodies. IMPRESSION: Fluoroscopic assistance as above. ACT 112: Negative or not required by law. Electronically signed by: Tree Marquez M.D. 06/02/2023 12:11 PM
--- NOTE | 2023-06-02 13:27 | Anesthesiology Progress Note ---
Date of Service June 02, 2023 Anesthesia Post Procedure Vital Signs Vital Signs: Temp Pulse Pulse Resp BP Pulse Ox O2 Del Method 06/02/23 13:20 12 138/92 97 Oxymask 06/02/23 13:10 83 11 L 135/94 98 Oxymask 06/02/23 13:00 81 12 127/90 99 Oxymask 06/02/23 12:50 91 H 11 L 141/85 H 100 Oxymask 06/02/23 12:40 83 13 117/82 94 Oxymask 06/02/23 12:30 85 20 128/76 93 Oxymask 06/02/23 12:20 36.1 C L 83 11 L 122/79 93 Oxymask 06/02/23 08:55 36.6 C 70 20 156/88 H 96 Room Air O2 Flow Rate 06/02/23 13:20 2 06/02/23 13:10 5 06/02/23 13:00 5 06/02/23 12:50 8 06/02/23 12:40 8 06/02/23 12:30 8 06/02/23 12:20 8 06/02/23 08:55 Transfer of Care Handoff Completed per policy Notes Mental Status: alert / awake / arousable Patient Amnestic to Procedure: Yes Nausea / Vomiting: adequately controlled Pain: adequately controlled Airway Patency, RR, SpO2: stable & adequate BP & HR: stable & adequate Hydration State: stable & adequate Anesthetic Complications: no major complications apparent
[2023-06-02] MEDS ORDERED: traMADol HCL 50 MG TABLET PO PRN (14:22)
[2023-06-02] MEDS ORDERED: FAMOTIDINE 20 MG TAB PO PRN (14:22)
[2023-06-02] MEDS ORDERED: diphenhydrAMINE Capsule 25 MG CAP PO PRN (14:22)
[2023-06-02] MEDS ORDERED: bisacodyL 10 MG SUPP PR PRN (14:22)
[2023-06-02] MEDS ORDERED: hydrOXYzine HCl 25 MG TAB PO PRN (14:22)
[2023-06-02] MEDS ORDERED: ACETAMINOPHEN 1,000 MG/100 ML VIAL IV PRN (14:22)
[2023-06-02] MEDS ORDERED: ONDANSETRON 4 MG OD TAB PO PRN (14:22)
[2023-06-02] MEDS ORDERED: DO NOT ADMINISTER FLU VACCINE PRN (14:22)
[2023-06-02] MEDS ORDERED: ACETAMINOPHEN 500 MG TAB PO PRN (14:22)
[2023-06-02] MEDS ORDERED: SOD PHOSPHATE/SOD BIPHOSPHATE ENEMA 132 ML BTL PR PRN (14:22)
[2023-06-02] MEDS ORDERED: ALUMINUM/MAGNESIUM SUSP 30 ML UDC PO PRN (14:22)
[2023-06-02] MEDS ORDERED: METOCLOPRAMIDE HCL INJ 5 MG/ML 2 ML VIAL IV PRN (14:22)
[2023-06-02] MEDS ORDERED: LORazepam 0.5 MG TAB PO PRN (14:22)
[2023-06-02] MEDS ORDERED: DO NOT ADMINISTER PNEUMOCOCCAL VACCINE PRN (14:22)
[2023-06-02] MEDS ORDERED: MAGNESIUM HYDROXIDE SUSP 30 ML UDC PO PRN (14:22)
[2023-06-02] MEDS ORDERED: HYDROmorphone INJ 0.5 MG/0.5 ML SYR IV PRN (14:22)
[2023-06-02] MEDS ORDERED: LORazepam 0.5 MG in SYRINGE 0.25 ML IV PRN (14:22)
--- NOTE | 2023-06-02 15:47 | Hospitalist Consultation ---
Date of Consultation June 02, 2023 Assessment & Plan (1) Lumbar radicular pain: Per primary team. DVT prophylaxis per primary team (2) HTN (hypertension): resume starla meds (3) Hypothyroidism: resume home meds (4) Restless leg: appears controlled (5) Seizure disorder: 2 dizzy spells years ago, no longer on medication (6) Depression: appears stable. not on medication (7) Rheumatoid arthritis: on leflunomide. stable History of Present Illness Reason for Consultation: medical management Attending Physician: Bart Romero DO History of Present Illness 63 yo female with past medical history below presented to the [facility] with the following diagnosis: Lumbar spinal stenosis with neurogenic claudication. S/P #1 lumbar decompression bilaterally facetectomies and foraminotomies L3-L4, L4-5 and L5-S1. #2 posterior spinal fusion L4-S1. #3 placed posterior instrumentation L4-S1. #4 interbody fusion L4-L5 L5-S1. #5 placement of Spira 14 x 26 mm at L4-5 and 13 x 26 mm x 2 at L5-S1. #6 placement locally harvested morselized autograft and posterior gutters. #7 placement of Morpheus interbody space and infuse collagen sponge, with Koros in the posterior lateral gutters. Hospitalist consult was placed for medical management. Allergies Allergy/AdvReac Type Severity Reaction Status Date / Time No Known Allergies Allergy Verified 06/02/23 08:50 Home Medications Medication Instructions Recorded Confirmed Type cholecalciferol (vitamin D3) 50 50 mcg PO QAM 04/27/20 06/02/23 History mcg (2,000 unit) capsule (Vitamin D3) cyanocobalamin (vitamin B-12) 1,000 mcg sublingual UD 04/27/20 06/02/23 History 1,000 mcg sublingual tablet levothyroxine 25 mcg tablet 25 mcg PO QAM 04/27/20 06/02/23 History folic acid 1 mg tablet 1 mg PO QAM 04/30/23 06/02/23 History ibuprofen 800 mg tablet 800 mg PO Q6H PRN Pain 04/30/23 06/02/23 History leflunomide 10 mg tablet 10 mg PO QAM 04/30/23 06/02/23 History oxycodone 5 mg tablet 5 mg PO Q6H PRN pain #30 tabs 01/02/24 Rx tramadol 50 mg tablet 50 mg PO Q6H PRN pain, moderate 06/02/23 Rx #30 tabs Patient History Medical History (Updated 06/02/23 @ 15:46 by Kobi Mott) Rheumatoid arthritis Osteoarthritis Osteopenia Obesity Lumbar radicular pain Depression HTN (hypertension) Hypothyroidism Peripheral neuropathy Restless leg hx, no longer on meds Seizure disorder 2 episodes/dizzy spells years ago, no longer on medications Surgical History Hx of section x1 History of esophagogastroduodenoscopy (EGD) Hx of colonoscopy [place] teeth extracted Hx of decompression of ulnar nerve S/P epidural steroid injection Hx of biopsy Right arm deltoid muscle biopsy (05/03/20): MAC at [facility] History of hysterectomy History of carpal tunnel surgery of right wrist History of carpal tunnel surgery of left wrist History of cholecystectomy Family History Father , in his 80s pancreatic cancer Cancer Pancreatic cancer Mother , age 58 of bowel obstruction No problems noted. 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 Other Information That Helps Us Care for You: No Feels Safe at Home: Yes Safety Concerns: Feels Safe At This Time Assistive Devices: Walker Review of Systems Constitutional: no fever Eyes: no blind spots Ear, Nose, Mouth, Throat: no ear pain Respiratory: no cough Cardiovascular: no chest pain Gastrointestinal: no abdominal pain Genitourinary: no dysuria Musculoskeletal: + back pain Integumentary: no acne Neurologic: no seizure-like activity Psychiatric: no behavioral changes Endocrine: + fatigue Hematologic / Lymphatic: no easy bleeding Physical Exam Constitutional: WD/WN, vitals as above Eyes: PERRL, conjunctivae normal, anicteric sclerae ENMT: external ear and nose normal, oropharynx normal Neck: trachea midline, no thyromegaly Respiratory: normal respiratory effort, lungs clear to auscultation Cardiovascular: RRR, no murmur, no edema Gastrointestinal (Abdomen): normal bowel sounds, soft, nontender, no hepatosplenomegaly Skin: no rashes, warm and dry Neurologic: PERRL, EOMI, accommodation nl, no face palsy, no dysarthria Psychiatric: A+Ox3, euthymic affect Lymphatic: no cervical or axillary lymphadenopathy Results & Data Results & Data Vital Signs (Past 12 Hours) Vital Signs Temp Pulse Pulse Resp BP Pulse Ox O2 Del Method 06/02/23 15:10 72 18 177/80 H 96 Room Air 06/02/23 14:42 36.3 C L 85 16 143/83 H 96 Room Air 06/02/23 14:10 36.4 C L 84 16 143/79 H 96 Room Air 06/02/23 13:50 86 19 118/85 96 Room Air 06/02/23 13:40 36.3 C L 74 12 128/89 92 Room Air 06/02/23 13:30 78 17 143/74 H 94 Oxymask 06/02/23 13:20 76 12 138/92 97 Oxymask 06/02/23 13:10 83 11 L 135/94 98 Oxymask 06/02/23 13:00 81 12 127/90 99 Oxymask 06/02/23 12:50 91 H 11 L 141/85 H 100 Oxymask 06/02/23 12:40 83 13 117/82 94 Oxymask 06/02/23 12:30 85 20 128/76 93 Oxymask 06/02/23 12:20 36.1 C L 83 11 L 122/79 93 Oxymask 06/02/23 08:55 36.6 C 70 20 156/88 H 96 Room Air O2 Flow Rate 06/02/23 15:10 06/02/23 14:42 06/02/23 14:10 06/02/23 13:50 06/02/23 13:40 06/02/23 13:30 2 06/02/23 13:20 2 06/02/23 13:10 5 06/02/23 13:00 5 06/02/23 12:50 8 06/02/23 12:40 8 06/02/23 12:30 8 06/02/23 12:20 8 06/02/23 08:55 PG Care Time/CCT Total # of Minutes Spent Total Time Spent with Patient: Total time spent is greater than 50% in coordination of care (as documented) at patient's floor/unit and/or counseling patient: Coding Level of Care Code 95724 IN/OBS CONSULT LVL 3,45M Diagnoses Lumbar radicular pain M54.16 HTN (hypertension) I10 Hypertension type: unspecified Hypothyroidism E03.9 Restless leg G25.81 Seizure disorder G40.909 Depression F32.9 Rheumatoid arthritis M06.9 (2) HTN (hypertension) Hypertension type: unspecified Qualified Code(s): I10 - Essential (primary) hypertension
[2023-06-02] MEDS: ceFAZolin 2000MG 2,000 MG/15 ML SYR IV SCH (17:11)
[2023-06-02] MEDS: LACTATED RINGER'S 1,000 ML IV SCH (17:12)
[2023-06-02] MEDS: DOCUSATE SODIUM/SENNA 50/8.6MG TAB PO SCH (20:38)
[2023-06-02] MEDS: oxyCODONE HCL IR 5 MG TAB (IMMEDIATE RELEASE) PO PRN (21:47)
[2023-06-03] MEDS: LACTATED RINGER'S 1,000 ML IV SCH (02:29)
[2023-06-03] MEDS: ceFAZolin 2000MG 2,000 MG/15 ML SYR IV SCH (02:29)
[2023-06-03] MEDS: LEVOTHYROXINE SODIUM 25 MCG TABLET PO SCH (05:44)
[2023-06-03] MEDS: POLYETHYLENE (MIRALAX) 17 GM PACK PO SCH ×4 (05:44→23:55)
[2023-06-03 06:49] LABS: Basophils # (auto) 0.04 K/uL (0.00-0.20); Basophils % (auto) 0.3 %; Eosinophils # (auto) 0.01 K/uL (0.00-0.50); Eosinophils % (auto) 0.1 %; Hematocrit (blood only) 33.9 % (37.0-47.0); Hemoglobin 10.9 g/dl (12.0-16.0); Immature Granulocytes # (auto) 0.08 K/uL (0.01-0.20); Immature Granulocytes % (auto) 0.6 %; Lymphocytes # (auto) 1.02 K/uL (1.20-3.40); Lymphocytes % (auto) 7.3 %; Mean Corpuscular Hemoglobin 28.4 pg (25.0-34.0); Mean Corpuscular Hgb Conc 32.2 g/dL (32.0-36.0); Mean Corpuscular Volume 88.3 fL (80.0-100.0); Mean Platelet Volume 12.4 fL (9.4-12.4); Monocytes # (auto) 0.86 K/uL (0.11-0.59); Monocytes % (auto) 6.1 %; Neutrophils # (auto) 11.99 K/uL (1.40-6.50); Neutrophils % (auto) 85.6 %; Platelet Count 171 K/uL (130-400); RDW Coefficient of Variation 14.1 % (11.5-14.5); RDW Standard Deviation 45.6 fL (36.4-46.3); Red Blood Count 3.84 M/uL (4.20-5.40)
[2023-06-03 07:06] LABS: BUN Creatinine Ratio 15.3 (10-20); Calcium 8.4 mg/dl (8.6-10.3); Creatinine Clr Calc Pharmacy 60.6 ml/min; Est GFR (African American) 70.2 ml/min; Est GFR (Non-African American) 60.5 ml/min; Potassium 4.4 mmol/L (3.5-5.1)
[2023-06-03] MEDS: oxyCODONE HCL IR 5 MG TAB (IMMEDIATE RELEASE) PO PRN ×3 (07:40→20:20)
[2023-06-03] MEDS: FOLIC ACID 1 MG TAB PO SCH (07:46)
[2023-06-03] MEDS: LEFLUNOMIDE 10 MG TAB PO SCH (07:46)
[2023-06-03] MEDS: dexAMETHasone 6 MG in SYRINGE 0 ML IV SCH (10:19)
--- NOTE | 2023-06-03 14:12 | Orthopedic Progress Note ---
Date of Service June 03, 2023 Assessment & Plan (1) Lumbar radicular pain: Plan: At this time continue physical therapy monitor YEE operatively discharge home in the next few days. Admission and Anticipated Discharge Date Admission Date: June 02, 2023 Subjective Back pain controlled leg pain improved Physical Exam Physical Exam: Patient is comfortable. Is consented testing. Results & Data Vital Signs (Past 12 Hours) Vital Signs Temp Pulse Resp BP Pulse Ox O2 Del Method 06/03/23 11:43 36.5 C 68 16 137/66 95 Room Air 06/03/23 08:23 36.5 C 70 15 127/80 98 Room Air 06/03/23 02:54 36.6 C 74 18 124/76 96 Room Air Queries Orthopedic Spine Obesity: Yes
--- NOTE | 2023-06-03 16:46 | Hospitalist Progress Note ---
Date of Service June 03, 2023 Assessment & Plan (1) Lumbar radicular pain: Plan: Per primary team. DVT prophylaxis per primary team (2) HTN (hypertension): Plan: resume starla meds (3) Hypothyroidism: Plan: resume home meds (4) Restless leg: Plan: appears controlled (5) Seizure disorder: Plan: 2 dizzy spells years ago, no longer on medication (6) Depression: Plan: appears stable. not on medication (7) Rheumatoid arthritis: Plan: on leflunomide. stable (8) Acute blood loss anemia: Plan: Acute blood loss anemia likely from procedure hemoglobin droped from 13 to 10. will recheck in AM Admission and Anticipated Discharge Date Admission Date: June 02, 2023 Subjective Family and service dog at bedside. Patient reports no new symptoms or active complaints. Review of Systems Review of Systems: All systems reviewed & are unremarkable except as noted in HPI & below Physical Exam Constitutional: WD/WN, vitals as above Eyes: PERRL, conjunctivae normal, anicteric sclerae ENMT: external ear and nose normal, oropharynx normal Neck: trachea midline, no thyromegaly Respiratory: normal respiratory effort, lungs clear to auscultation Cardiovascular: RRR, no murmur, no edema Gastrointestinal (Abdomen): normal bowel sounds, soft, nontender, no hepatosplenomegaly Skin: no rashes, warm and dry Neurologic: PERRL, EOMI, accommodation nl, no face palsy, no dysarthria Psychiatric: A+Ox3, euthymic affect Lymphatic: no cervical or axillary lymphadenopathy Results & Data Results & Data Vital Signs (Past 12 Hours) Vital Signs Temp Pulse Resp BP Pulse Ox O2 Del Method 06/03/23 15:48 37.3 C 77 18 147/81 H 98 Room Air 06/03/23 11:43 36.5 C 68 16 137/66 95 Room Air 06/03/23 08:23 36.5 C 70 15 127/80 98 Room Air PG Care Time/CCT Total # of Minutes Spent Total Time Spent with Patient: Total time spent is greater than 50% in coordination of care (as documented) at patient's floor/unit and/or counseling patient: Coding Level of Care Code 82421 SUB INP/OBS CARE 2/35MIN Diagnoses Lumbar radicular pain M54.16 HTN (hypertension) I10 Hypertension type: unspecified Hypothyroidism E03.9 Restless leg G25.81 Seizure disorder G40.909 Depression F32.9 Rheumatoid arthritis M06.9 Acute blood loss anemia D62 (2) HTN (hypertension) Hypertension type: unspecified Qualified Code(s): I10 - Essential (primary) hypertension
[2023-06-03] MEDS: DOCUSATE SODIUM/SENNA 50/8.6MG TAB PO SCH (20:20)
[2023-06-04] MEDS: oxyCODONE HCL IR 5 MG TAB (IMMEDIATE RELEASE) PO PRN ×6 (01:58→22:07)
[2023-06-04] MEDS: POLYETHYLENE (MIRALAX) 17 GM PACK PO SCH ×4 (05:40→23:25)
[2023-06-04] MEDS: LEVOTHYROXINE SODIUM 25 MCG TABLET PO SCH (05:41)
[2023-06-04 08:15] LABS: Hemoglobin 10.4 g/dl (12.0-16.0); Mean Corpuscular Hemoglobin 28.6 pg (25.0-34.0); Mean Corpuscular Hgb Conc 32.5 g/dL (32.0-36.0); Mean Corpuscular Volume 87.9 fL (80.0-100.0); Mean Platelet Volume 12.4 fL (9.4-12.4); Platelet Count 146 K/uL (130-400); RDW Coefficient of Variation 14.3 % (11.5-14.5); RDW Standard Deviation 46.4 fL (36.4-46.3); Red Blood Count 3.64 M/uL (4.20-5.40); White Blood Count 9.13 K/ul (4.8-10.8)
[2023-06-04 08:20] LABS: BUN Creatinine Ratio 19.4 (10-20); Calcium 8.2 mg/dl (8.6-10.3); Creatinine Clr Calc Pharmacy 63.8 ml/min; Est GFR (African American) 74.7 ml/min; Est GFR (Non-African American) 64.5 ml/min; Potassium 3.9 mmol/L (3.5-5.1)
[2023-06-04] MEDS: LEFLUNOMIDE 10 MG TAB PO SCH (08:46)
[2023-06-04] MEDS: FOLIC ACID 1 MG TAB PO SCH (08:46)
[2023-06-04] MEDS: dexAMETHasone 6 MG in SYRINGE 0 ML IV SCH (09:10)
--- NOTE | 2023-06-04 11:50 | Orthopedic Progress Note ---
Date of Service June 04, 2023 Assessment & Plan (1) Lumbar radicular pain: Plan: At this time continue physical therapy monitor YEE output anticipate discharge home tomorrow. Admission and Anticipated Discharge Date Admission Date: June 02, 2023 Subjective Back pain controlled leg pain improved Physical Exam Physical Exam: Patient is consented testing. Appears comfortable. Results & Data Vital Signs (Past 12 Hours) Vital Signs Temp Pulse Resp BP Pulse Ox O2 Del Method 06/04/23 07:18 37.0 C 84 12 114/72 96 Room Air Queries Orthopedic Spine Acute Posthemorrhagic Anemia: Yes Obesity: Yes
--- NOTE | 2023-06-04 14:12 | Hospitalist Progress Note ---
Date of Service June 04, 2023 Assessment & Plan (1) Lumbar radicular pain: Plan: Pain control and DVT prophylaxis per primary team (2) HTN (hypertension): Plan: Diet controlled. (3) Hypothyroidism: Plan: Continue Synthroid (4) Restless leg: Plan: appears controlled (5) Seizure disorder: Plan: 2 dizzy spells years ago, no longer on medication (6) Depression: Plan: appears stable. not on medication (7) Rheumatoid arthritis: Plan: on leflunomide. stable (8) Acute blood loss anemia: Plan: Acute blood loss anemia likely from procedure hemoglobin droped from 13 to 10. stable today Plan Dispo: medically stable Thank you for allowing us to participate in the care of this patient, hospitalist team will sign off, please reach out with any new questions or concerns Admission and Anticipated Discharge Date Admission Date: June 02, 2023 Subjective Patient seen sitting up in bed. No back or leg pain currently. Reports HTN controlled with diet, Thyroid has been stable. No chest pain or SOB. Review of Systems Review of Systems: All systems reviewed & are unremarkable except as noted in Subjective Physical Exam Physical Exam: General: NAD, VS as above Resp: normal respiratory effort, lungs clear to auscultation CV: RRR, no murmur, Abd: normal bowel sounds, non tender, no hepatosplenomegaly Extremities: Moves all extremities, no edema, distal pulses intact Neuro: A&O x3, Skin: warm and dry, no lesions noted Results & Data Results & Data Vital Signs (Past 12 Hours) Vital Signs Temp Pulse Resp BP Pulse Ox O2 Del Method 06/04/23 07:18 37.0 C 84 12 114/72 96 Room Air Laboratory Results CBC and chemistry reviewed PG Care Time/CCT Total # of Minutes Spent Total Time Spent with Patient: Total time spent is greater than 50% in coordination of care (as documented) at patient's floor/unit and/or counseling patient: Coding Level of Care Code 41068 SUB INP/OBS CARE 2/35MIN Diagnoses Lumbar radicular pain M54.16 HTN (hypertension) I10 Hypertension type: unspecified Hypothyroidism E03.9 Restless leg G25.81 Seizure disorder G40.909 Depression F32.9 Rheumatoid arthritis M06.9 Acute blood loss anemia D62 (2) HTN (hypertension) Hypertension type: unspecified Qualified Code(s): I10 - Essential (primary) hypertension
[2023-06-04] MEDS: DOCUSATE SODIUM/SENNA 50/8.6MG TAB PO SCH (20:21)
[2023-06-05] MEDS: oxyCODONE HCL IR 5 MG TAB (IMMEDIATE RELEASE) PO PRN ×3 (02:43→10:58)
[2023-06-05] MEDS: LEVOTHYROXINE SODIUM 25 MCG TABLET PO SCH (05:44)
[2023-06-05] MEDS: POLYETHYLENE (MIRALAX) 17 GM PACK PO SCH (05:46)
[2023-06-05] MEDS: LEFLUNOMIDE 10 MG TAB PO SCH (08:13)
[2023-06-05] MEDS: FOLIC ACID 1 MG TAB PO SCH (08:13)
[2023-06-05] MEDS: dexAMETHasone 6 MG in SYRINGE 0 ML IV SCH (08:21)
--- NOTE | 2023-06-05 10:07 | Discharge Summary ---
Date of Service June 05, 2023 Admission HPI Per Admitting Provider 63-year-old female with chronic persistent back and leg pain. Failing since course of nonoperative care she is here for surgical invention. Principal Diagnosis Lumbar spinal stenosis with neurogenic claudication Discharge Data Allergies Allergy/AdvReac Type Severity Reaction Status Date / Time No Known Allergies Allergy Verified 06/02/23 08:50 Consultations 06/02/23 14:22 Consult Hospitalist Routine Procedures Performed Operation Date: 06/02/23 10:05 Actual Procedures p L4-S1 Decompression and Fusion, Spinal Cord Monitoring(Not Applicable) - Bart Romero DO Ordered Studies 06/02/23 10:05 [place] lumbar spine 2-3V Routine Hospital Course (1) Weakness: Plan Patient 1 lumbar decompression fusion tolerates well was taken orthopedic. Labor postop patient progressed appropriately. YEE drain decreased well. Excellent strength testing. Simply discharged home. Discharge orders instructions from the chart for further view. Total Time Total Time Spent Total Time Spent (In Minutes): 20 minutes Discharge Plan Discharge Items Patient Disposition: Home - Self-Care Reason For Visit: Lumbar Stenosis Without Neurogenic Claudication, Discharge Diagnosis: Lumbar spinal stenosis with neurogenic claudication Activity: As commented below Non-emergency contact: Primary Care Provider Call non-emergency contact if: you have any medication questions Follow-up/Referrals: Darrell Hancock DO [Primary Care Provider] - Diet: Regular Addtl Attending Provider Instructions: ACTIVITY RECOMMENDATIONS: SELF CARE INSTRUCTIONS AFTER THORACIC/LUMBAR FUSIONS 1. You may walk to your tolerance. It is good exercise for your legs and back. Expect some back and intermittent leg aches and pains. 2. You may perform "counter-top" level activities (make a sandwich, eleno with a project, etc.). 3. No bending or lifting of more than 10 pounds or back twisting of any nature (roll like a log when turning in bed). 4. You may ride in a car for 20-30 minutes at a time. No driving until after your first visit with your doctor. 5. Frequent changes of position and restricting sitting to 30 minutes at a time will help limit the amount of back spasms and stiffness you may experience. 6. You may discontinue the use of ambulatory aids (cane, crutches, etc.) once your strength and confidence allow. 7. You may marketing traffic coordinator the shower and let water strike your incision when you arrive home at least once daily. Do not take a tub bath, sit in a hot tub or go into a swimming pool until after your first recheck in the office. SPECIAL CARE INSTRUCTIONS: VERY IMPORTANT TO READ AND REVIEW A. Your surgical incision has been closed with a cosmetic suture under the skin that will dissolve in about 6 weeks. In 14 days, you can use a pair of clean scissors and cut the suture that is left outside of the skin at the ends of your incision. 1. The small skin tapes can be removed 7 days after surgery if they have not fallen off by that point. 2. You may keep the wound open to air as much as possible to promote healing after post-op day number 5 unless told otherwise by your doctor. 3. If you think the wound looks like it is becoming infected (redness or worsening drainage) and/or you are experiencing fever, chill or worsening back pain and muscle spasms, contact the office so that we may evaluate you as soon as possible. B. Complications are uncommon, but please contact us if you have any signs or symptoms of: 1. wound infection (fever higher than 102.5 degrees F, redness, separation of wound, drainage, or increasing pain from the incision) 2. blood clots in legs (pain, swelling, redness and warmth in legs) 3. urinary tract infection (fever higher than 102.5 degrees F, burning upon urination or increased frequency of urination) 4. nerve problems (inability to walk on your toes or heels, numbness, loss of bowel or bladder control) 5. any other symptoms that concern you C. Please call the office at if you have any concerns or questions about your operation or recovery. D. No smoking! Smoking drastically decreases the chance of a solid fusion. E. Do not take any anti-inflammatory medications (Indocin, Advil, Motrin, Aspirin, Naprosyn, etc.) as these may inhibit the chance of a solid fusion. Tylenol is okay to take for pain. MANAGING PAIN AFTER SPINAL SURGERY 1. Narcotic medication is intended for short-term use and will be provided for surgical pain. Surgical pain usually lasts for a period of 4-6 weeks. Narcotic medication includes Percocet, Vicodin, Darvocet, Tylenol #3 or Lortab. 2. Longer-term pain is more appropriately treated with non-narcotic medication such as Tylenol ES. 3. Muscle spasm is not appropriately treated with narcotics. Muscle relaxers such as Soma, Flexeril or Skelaxin can be used along with Tylenol ES. 4. Remember that we all live with some "aches and pains". This is not unusual or uncommon after an injury or as we get older. a. Back pain is expected and may include muscle spasms for 4 to 6 weeks after surgery. The pain should gradually improve. If the pain worsens for no apparent reason, please contact the office. b. Intermittent leg pain may also be experienced and should not be concerned about unless it worsens for no apparent reason. If so, please contact the office. 5. We will provide appropriate medication within the normal guidelines of their prescribed use. We will also be very cautious and aware of potential abuse and extended duration of patients' medication needs. a. Pain medications are for your comfort and to assist with sleep and rest so that the tissue can heal. They are not provided in order to return to normal activity and should not be used through the day. To do so or worsening pain at night can result from ongoing tissue damage and development of tolerance to the prescribed medicine. 6. Please allow 2-3 days to process refills. Prescriptions will not be mailed but must be picked up at the office. FOLLOW UP VISIT: Keep your scheduled follow-up appointment. Any questions, please call the office at . Pending Studies at Discharge: No Stand-Alone Forms: My [facility] [employer], Smoking Cessation Medications and [place] Order Prescriptions: New oxycodone 5 mg tablet 5 mg PO Q6H PRN (Reason: pain) Qty: 30 0RF tramadol 50 mg tablet 50 mg PO Q6H PRN (Reason: pain, moderate) Qty: 30 0RF Continued levothyroxine 25 mcg tablet 25 mcg PO QAM cyanocobalamin (vitamin B-12) 1,000 mcg Tablet, Sublingual 1,000 mcg SUBLINGUAL UD cholecalciferol (vitamin D3) [Vitamin D3] 50 mcg (2,000 unit) Capsule 50 mcg PO QAM leflunomide 10 mg Tablet 10 mg PO QAM folic acid 1 mg Tablet 1 mg PO QAM Discontinued ibuprofen 800 mg Tablet 800 mg PO Q6H PRN (Reason: Pain) Patient Comments: tries not to use them often Discharge Orders: Discharge Order (Routine); Ordered 06/05/23 Ordered By: Bart Romero Admission Data Admit Date/Time: 06/02/23 12:06 Attending Provider: Bart Romero Admit Provider: Bart Romero Primary Care Provider: Darrell Hancock
== END 2023-06-05 12:03 | disposition home or self-care (01) | DRG 454 ==
LOC: ASU 08:17 → 3N 12:06